=== PATIENT | male | born 1965 | race Caucasian/White ===

== ENCOUNTER 2024-03-05 11:25 | Inpatient (IN) | payer MEDICAID, SELFPAY ==
[2024-03-05] VITALS (9 sets, daily range): BP systolic 140–169; BP diastolic 77–86; PULSE 82–93; RESP 16–22; TEMP 36.6–37.2; O2SAT 70–97; BMI 51.6
--- NOTE | ~2024-03-05 | XR_ITS ---
CLINICAL HISTORY: dyspnea and hypoxia 1 view chest x-ray Comparison: CT/NC/SR - CT ANGIO CHEST PE PROTOCOL - 03/05/24 13:51 EST Findings: Left lower lobe airspace disease. Small left effusion. Right effusion not well seen. Heart size is stable. No acute fracture. IMPRESSION: 1. Left lower lobe airspace disease, atelectasis versus infection. This document has been electronically signed by: Sasha Dickerson MD on 03/06/2024 06:23:03
--- NOTE | ~2024-03-05 | CT_ITS ---
EXAMINATION: CT ANGIOGRAM CHEST CLINICAL INFORMATION: Hypoxia. COMPARISON: None available. TECHNIQUE: Multiple axial images were obtained through the chest after the administration of 85 mL of Omnipaque 350 intravenous contrast. Extensive vascular post-processing including two-dimensional and three-dimensional reformatted images were created and reviewed on an independent workstation. This CT examination was performed using dose optimization techniques as appropriate, variously including the following: *Automated exposure control *Adjustment of mA and/or kV according to patient size (this includes techniques or standardized protocols for targeted exams where dose is matched to indication/reason for exam; i.e. extremities or head) *Use of iterative reconstruction technique. DLP: 438.48 mGy centimeter FINDINGS: No intraluminal filling defects within the main pulmonary artery or its main branches. Thoracic aorta demonstrates normal patency without focal stenosis or intimal flap. Bilateral pleural effusions, large volume. Pulmonary patchy and confluent groundglass extending from the perihilar regions to the periphery of the lungs. No gross consolidation. No pneumothorax. No bronchiectasis. Honeycombing. No pericardial effusion. No lymphadenopathy, mediastinum or perihilar. Prominent lymph nodes in the axillary region. Edema pattern in the fat planes of the thorax. Multilevel spondylosis. Superior endplate compression deformity at T1 no fully included in the exam. CT/CT angio chest PE protocol IMPRESSION: No acute pulmonary artery emboli. No aneurysm or dissection, aorta. Pulmonary edema and bilateral pleural effusions, large volume Fleischner guidelines were followed. Electronically signed by: Melecio Garcia MD 03/05/2024 02:39 PM JOSEPHINE
--- NOTE | ~2024-03-05 | CT_ITS ---
EXAMINATION: CT ABDOMEN AND PELVIS WITH CONTRAST CLINICAL INFORMATION: Hypoxia. Scrotal edema. COMPARISON: None available. TECHNIQUE: Multidetector volumetric images were obtained from the superior aspect of the liver through the pubic symphysis following administration 85 mL of Omnipaque 350 intravenous contrast. Sagittal and coronal reformatted images were obtained on the technologist's workstation. Oral contrast: No This CT examination was performed using dose optimization techniques as appropriate, variously including the following: *Automated exposure control *Adjustment of mA and/or kV according to patient size (this includes techniques or standardized protocols for targeted exams where dose is matched to indication/reason for exam; i.e. extremities or head) *Use of iterative reconstruction technique. DLP: 1768.17 mGy centimeter. FINDINGS: There is no adequate enhancement of the intra-abdominal solid organs LUNG BASES: Bilateral pleural effusions, large volume. Patchy and confluent pulmonary groundglass both lungs extending from the perihilar region. LIVER, GALLBLADDER, AND BILIARY TREE: Liver measures 19 cm. No gross masses. Main portal vein and intrahepatic portion of the IVC are grossly patent... Edematous gallbladder wall without pericholecystic fluid collections. No intrahepatic or extrahepatic biliary ductal dilatation. PANCREAS: No peripancreatic fluid collections. No main pancreatic ductal dilatation. SPLEEN: 14 cm. No gross focal lesion. ADRENAL GLANDS: No nodular lesions. KIDNEYS AND URETERS: No hydronephrosis. There are multifocal hypodensities throughout the right kidney parenchyma, the largest in the lower pole. BLADDER: Fluid-filled nearly collapsed. GASTROINTESTINAL TRACT: No intestinal obstruction pattern. No pneumatosis intestinalis. Scattered diverticula in the left hemicolon I cannot identify the appendix. There is edema in the mesenteric. Trace amount of ascites. No peripheral enhancing fluid collection no pneumothorax. ABDOMINAL WALL: There is extensive edema pattern within the fat planes of the lower thorax abdomen pelvis and kidneys without gross fluid collection. There is diffuse edema/fluid within the scrotal sac. No subcutaneous emphysema. Small fat-containing umbilical hernia. LYMPH NODES: No gross lymphadenopathy. VASCULAR: No aneurysm or dissection in the abdominal aorta. There is a common trunk for the hepatic and splenic arteries. PELVIC VISCERA: There is no enlargement of the prostate gland. OSSEOUS STRUCTURES: Multilevel thoracolumbar spondylosis more conspicuous at L4-5 and L5-S1. CT/CT abdomen pelvis w IV con IMPRESSION: Edema without drainable fluid collection or subcutaneous emphysema in the scrotal sacs and likely bilateral hydroceles. Anasarca, bilateral pleural effusions, large volume. Fleischner guidelines were followed. Electronically signed by: Melecio Garcia MD 03/05/2024 02:49 PM EST
--- NOTE | ~2024-03-05 | XR_ITS ---
EXAMINATION: XR CHEST CLINICAL INFORMATION: sob COMPARISON: None available. TECHNIQUE: Frontal view of the chest was obtained. FINDINGS: The cardiac, hilar, and mediastinal contours appear normal. The lungs demonstrate patchy left base opacity suspicious for pneumonia. Cannot exclude a tiny left effusion. Right lung is clear. No pneumothorax. No acute soft tissue or bone abnormalities. XR/XR chest 1V IMPRESSION: Left lower lobe pneumonia suspected. Equivocal findings for a tiny left effusion. Electronically signed by: Jovany Andrew MD 03/05/2024 12:06 PM JOSEPHINE
--- NOTE | 2024-03-05 11:31 | ED_ITS ---
HPI - SOB/Dyspnea General Chief Complaint: Dyspnea Stated Complaint: SOB - asthma Time Seen by Provider: 03/05/24 11:42 Source: patient, family (mother) and RN notes reviewed Mode of arrival: ambulatory Limitations: other (Patient is a very poor historian) History of Present Illness ED Provider: Lillie ISRAEL Narrative: 59-year-old male who denies any known past medical history presents for evaluation of shortness of breath. The patient initially reported that he was short of breath for 2 weeks. Upon further questioning he reports that he has been short of breath since September, 5 months ago He denies any fevers, chills, cough He reports that he smoked for about a year when he was in his 20s His mother whom he lives with does smoke in the house The patient's mother states the patient has diabetes but the patient does not believe this He reports he takes no medications He states that his testicles are swollen and have been for several weeks He has pain to his testicles with movement He was found to have an oxygen saturation of 70% on room air in triage and was brought straight back to room 22 Related Data Allergies Allergy/AdvReac Type Severity Reaction Status Date / Time No Known Allergies Allergy Verified 03/05/24 11:42 Review of Systems 2 Constitutional: Constitutional: Denies body ache(s), Denies chills and Denies fever(s) ENT: Denies sore throat Cardiovascular: Cardiovascular: Denies chest pain and Reports dyspnea Respiratory: Respiratory: Denies cough and Reports dyspnea Gastrointestinal: Gastrointestinal: Denies abdominal pain, Denies nausea and Denies vomiting Genitourinary: Genitourinary: Reports genital pain, Reports scrotal swelling and Reports testicular pain Musculoskeletal: Musculoskeletal: Denies back pain PMFSH Social History Social History Unable to assess alcohol history related to: Unknown Smoked in Last 30 Days: No Use of substances other than those prescribed or required for medical reasons: Unknown Advance Directives: No Advance Directives Information Provided: Yes Physical Exam 2 Vital Signs: Vital Signs: Last Vital Signs Temp 98.9 F 03/05/24 11:53 Pulse 82 03/05/24 12:08 Resp 16 03/05/24 12:08 BP 169/82 H 03/05/24 11:53 Pulse Ox 97 03/05/24 11:53 O2 Del Method Nasal Cannula 03/05/24 11:53 O2 Flow Rate 3 03/05/24 11:53 BMI result Body Mass Index 51.6 Const: Other: Disheveled appearing General: comfortable, no acute distress, alert and awake Nutritional Appearance: well nourished, obese and overweight Orientation/consciousness: p atient oriented x3 HEENT: Head: Yes normocephalic and Yes atraumatic Eyes: Eyelids: Yes eyelids normal Conjunctivae: conjunctivae normal S clerae: sclerae normal Corneas: corneas normal Pupils: Equal, round and reactive pupils present EOM: EOMs intact bilaterally Neck: Neck: Yes full ROM Resp: Effort & Inspection: normal respiratory effort, able to speak in complete sentences and not labored Cardio: Rate: regular rate Rhythm: regular rhythm : Other: The patient has marked scrotal edema with surrounding erythema consistent with fungal infection Scrotum: edematous diffuse and erythematous Skin: Other: Patient has erythema with whitish discharge in the skin folds of his lower abdomen/pelvis as well as inner thighs General skin exam: elasticity normal Neuro: General: patient oriented x3 Cranial nerves: Yes Equal, round and reactive pupils present and Yes Bilaterally intact EOM present Cognition (Neuro): normal cognition Extrem: Other: Patient has an eschar to the left great toe that is about 3 cm in size. He has a smaller 1 cm eschar to the right 2nd toe. The patient has a chronic lichenification to the bilateral lower extremities. No open wounds or erythema to lower extremities bilaterally. Course Course Course Narrative: This is an RME: Additional HPI, ROS, PE not included below will be deferred to primary provider. RME assessment and note performed by: Berna Appiah PA-C This is a 7-feom-hwp-male, hx of who presents to the ER with complaints of shortness of breath and scrotal swelling x 2 weeks. He has a hx of diabetes but does not take medication for it. No fevers, CP. O2 70% on RA, speaking in full sentences. Lungs diminished. Patient immediately brought back to a room. Placed on 2 L nasal cannula. Plan: labs, xray, ekg Reevaluation(s) Reevaluation #1: Patient's CT scan shows anasarca with bilateral pleural effusions. The patient's troponin and BNP were both elevated likely due to the congestive heart failure. I ordered Lasix. I have a low suspicion for ACS. The patient's EKG it was not show any evidence of acute ischemia. Time: 15:02 Medications Administered Discontinued Medications Generic Name Dose Route Start Last Admin Trade Name Balwinder PRN Reason Stop Dose Admin Albuterol/Ipratropium 3 ml 03/05/24 12:01 03/05/24 12:06 Albuterol/Iprat 2.5/0.5mg 3 Ml Ampul.Neb INHALE 03/05/24 12:02 3 ml ONCE ONE Administration Iohexol 100 ml 03/05/24 14:27 03/05/24 14:27 Iohexol 350 Mg/Ml 100 Ml Infus..Btl IV 03/05/24 14:28 85 ml ONCE ONE Administration Medical Decision Making Medical Decision Making [facility] Narrative: 59-year-old male who denies any known past medical history however seems is noncompliant with medical care/follow-up presents for evaluation of multiple complaints including shortness of breath and scrotal swelling. Both these issues seemed to have been going on for at least a few weeks. Plan for labs, chest x-ray, scrotal ultrasound. We will consider CT angiography given his significant hypoxia all the patient appears quite comfortable on 3 L via nasal cannula. Differential Diagnosis Differential Diagnoses: The differential diagnosis associated with the presentation includes Pneumonia CHF Hydrocele Anasarca Testicular torsion less likely Safia PE Admission/Observation Consideration of admission/observation: Escalation of care including admission/observation considered Lab Data 03/05/24 13:03 03/05/24 13:03 Labs: Lab Results 03/05/24 03/05/24 Range/Units 13:03 13:25 WBC 7.1 (4.8-10.8) X10*3/uL RBC 4.24 L (4.60-5.80) X10*6/uL Hgb 11.3 L (14.0-18.0) g/dl Hct 39.1 L (42.0-52.0) % MCV 92.2 (80.0-98.0) fL MCH 26.7 L (27.0-33.0) pg MCHC 28.9 L (31.0-36.0) g/dl RDW 14.6 (11.0-16.0) % Plt Count 250 (160-400) X10*3/uL MPV 8.3 L (9.4-12.4) fL Immature Gran % (Auto) 1.6 H (0.0-0.4) % Neut % (Auto) 86.3 H (45-73) % Lymph % (Auto) 4.9 L (20-40) % [place] % (Auto) 6.2 (2-11) % Eos % (Auto) 0.4 (0-4) % Baso % (Auto) 0.6 (0-2) % Lymph # (Auto) 0.4 L (1.2-4.9) X10*3/uL [place] # (Auto) 0.4 (0.1-1.2) X10*3/uL Eos # (Auto) 0.0 (0.0-0.4) X10*3/uL Baso # (Auto) 0.0 (0.0-0.2) X10*3/uL Abs Immat Gran (auto) 0.11 H (0.00-0.03) X10*3/uL Absolute Neuts (auto) 6.1 (2.0-8.3) x10*3/uL Absolute Nucleated RBC 0.030 H (0.0-0.012) X10*3/uL Nucleated RBC % (auto) 0.4 H (0.0-0.2) /100WBC Sodium 144 (135-145) mmol/L Potassium 4.3 (3.3-5.1) mmol/L Chloride 102 (96-108) mmol/L Carbon Dioxide 33 H (22-29) mmol/L Anion Gap 13 (12-20) BUN 29 H (9-16) mg/dL Creatinine 1.28 (0.5-1.4) mg/dL Estim Creat Clear Calc 98.2 Estimated GFR 58 Random Glucose 275 H (60-115) mg/dL Lactic Acid 2.1 H* (0.5-2.0) mmol/L Calcium 8.3 L (8.4-10.2) mg/dL Magnesium 2.5 (1.6-2.6) mg/dL Total Bilirubin 0.8 (0.0-1.0) mg/dL Direct Bilirubin 0.4 (0.0-0.5) mg/dL AST 28 (5-37) U/L ALT 16 (0-40) U/L Alkaline Phosphatase 228 H (39-117) U/L Troponin I High Sens 72.7 H (<3.5-35.0) ng/L B-Natriuretic Peptide 530 H (<100) pg/mL Total Protein 8.5 H (6.5-8.0) g/dL Albumin 2.9 L (3.5-5.0) g/dL Influenza Type A (PCR) NEGATIVE (Negative) Influenza Type B (PCR) NEGATIVE (Negative) RSV RNA Qual (PCR) NEGATIVE (Negative) SARS-CoV-2 RNA (RT-PCR) NEGATIVE (Negative) Discharge Plan Discharge Clinical Impression: Congestive heart failure Patient Disposition: Admitted As Inpatient Print Language: Sinhala
--- NOTE | 2024-03-05 11:36 | ECG_ITS ---
Test Reason : SOB Blood Pressure : */* mmHG Vent. Rate : 82 BPM Atrial Rate : 82 BPM P-R Int : 182 ms QRS Dur : 110 ms QT Int : 378 ms P-R-T Axes : 4 -37 44 degrees QTcB Int : 441 ms Normal sinus rhythm Left axis deviation Anteroseptal infarct , age undetermined Abnormal ECG No previous ECGs available Referred By: Berna Appiah Electronically Signed By: Kirk Evans
[2024-03-05] MEDS: Albuterol/Iprat 2.5/0.5MG 3 ML AMPUL.NEB INHALE (12:06)
[2024-03-05 13:14] LABS: MANUAL DIFF FLAG NO
[2024-03-05 13:20] LABS: Basophils Percent Auto 0.6 % (0-2); Eosinophils Percent Auto 0.4 % (0-4); Hematocrit 39.1 % (42.0-52.0); Hemoglobin 11.3 g/dl (14.0-18.0); Imm Gran Abs Auto 0.11 X10*3/uL (0.00-0.03); Imm Gran Pct Auto 1.6 % (0.0-0.4); Lymphocytes Absolute Auto 0.4 X10*3/uL (1.2-4.9); Lymphocytes Percent Auto 4.9 % (20-40); Mean Corpuscular HGB Conc 28.9 g/dl (31.0-36.0); Mean Corpuscular Hemoglobin 26.7 pg (27.0-33.0); Mean Corpuscular Volume 92.2 fL (80.0-98.0); Mean Platelet Volume 8.3 fL (9.4-12.4); Monocytes Absolute Auto 0.4 X10*3/uL (0.1-1.2); Monocytes Percent Auto 6.2 % (2-11); NRBC Pct Auto 0.4 /100WBC (0.0-0.2); Neutrophils Absolute Auto 6.1 x10*3/uL (2.0-8.3); Neutrophils Percent Auto 86.3 % (45-73); Platelet Count 250 X10*3/uL (160-400); Red Blood Count 4.24 X10*6/uL (4.60-5.80); Red Cell Distribution Width 14.6 % (11.0-16.0); White Blood Count 7.1 X10*3/uL (4.8-10.8)
[2024-03-05 13:31] LABS: Alanine Aminotransferase 16 U/L (0-40); Albumin Level 2.9 g/dL (3.5-5.0); Alkaline Phosphatase 228 U/L (39-117); Anion Gap 13 (12-20); Aspartate Amino Transferase 28 U/L (5-37); Bilirubin Direct 0.4 mg/dL (0.0-0.5); Bilirubin Total 0.8 mg/dL (0.0-1.0); Blood Urea Nitrogen 29 mg/dL (9-16); Calcium 8.3 mg/dL (8.4-10.2); Carbon Dioxide 33 mmol/L (22-29); Chloride 102 mmol/L (96-108); Creatinine Clr Calc Pharmacy 98.2; Estimated Glomerular Filt Rate 58; Glucose Random 275 mg/dL (60-115); Magnesium 2.5 mg/dL (1.6-2.6); Potassium 4.3 mmol/L (3.3-5.1); Sodium 144 mmol/L (135-145); Total Protein 8.5 g/dL (6.5-8.0)
[2024-03-05 13:35] LABS: B Type Natriuretic Peptide 530 pg/mL (<100)
[2024-03-05 13:37] LABS: Troponin-I High Sensitivity 72.7 ng/L (<3.5-35.0)
[2024-03-05 13:38] LABS: Lactic Acid 2.1 mmol/L (0.5-2.0)
[2024-03-05 14:12] LABS: Influenza A PCR NEGATIVE (Negative); Influenza B PCR NEGATIVE (Negative); Resp Syncy Virus RNA Qual PCR NEGATIVE (Negative); SARS COV2 PCR INHOUSE NEGATIVE (Negative)
[2024-03-05] MEDS: iohexoL 350 MG/ML 100 ML INFUS..BTL IV (14:27)
[2024-03-05 15:11] LABS: Reflex Lactate? Lactic Acid Added
[2024-03-05 15:23] LABS: Estimated Average Glucose 298 mg/dL; Hemoglobin A1C 322.0366 umol/L; Total Hemoglobin (HGBA1C) 2994.5558 umol/L
--- NOTE | 2024-03-05 15:29 | P.HPHOSP_ITS ---
History of Present Illness Date of Service: 03/05/24 Chief Complaint: sob, scrotal swelling 59M PMH DM, morbid obesity, non compliance, does not take meds or follow with doctors, is a poor historian. Reports that he came to the ED and behest of his mother for scrotal swelling and worsening shortness of breath for 2 weeks. Denies chest pain, fever, chills. Denies orthopnea. Is inconsistent when asked about chronicity of his scrotal swelling, at times saying that it has been there for 25 years and at times saying that developed last few weeks. Reports weight gain, denies loss of appetite. In ED CT chest and abdomen consistent with anasarca, elevated BNP, hypoxia Review of Systems 2 Review of Systems: Yes all other systems are reviewed and are negative PMFSH Social History Unable to assess alcohol history related to: Unknown Smoked in Last 30 Days: No Use of substances other than those prescribed or required for medical reasons: Unknown Advance Directives: No Advance Directives Information Provided: Yes Meds Allergies Allergy/AdvReac Type Severity Reaction Status Date / Time No Known Allergies Allergy Verified 03/05/24 11:42 Active Medications: Current Medications Acetaminophen (Acetaminophen 325 Mg Tablet) 650 mg PO Q6H PRN PRN Reason: Pain, Mild 1-3,fever,headache Calcium Carbonate (Calcium Carbonate 750 Mg Tab.Chew) 750 mg PO Q4H PRN PRN Reason: Heartburn Enoxaparin Sodium (Enoxaparin Sodium 40 Mg/0.4 Ml Syringe) 40 mg SUBCUT Q24H SUSAN Furosemide (Furosemide 40 Mg/4 Ml Vial) 40 mg IVPUSH BID@0900,1800 SUSAN; Protocol Glucose (Glucose Gel 15 Gm Gel..Gram.) 15 gm PO Q15M PRN; Protocol PRN Reason: per Hypoglycemia Standing Ord. Dextrose (D10) 250 mls @ 750 mls/hr IV Q15M PRN; Protocol PRN Reason: per Hypoglycemia Standing Ord. Insulin Glargine (Insulin Glargine,Hum.Rec.Anlog 100 Unit/Ml 10 Ml Vial) 15 unit SUBCUT BEDTIME SUSAN Insulin Human Lispro (Insulin Lispro 100 Unit/Ml 3 Ml Vial) 0 unit SUBCUT QIDACHS SUSAN; Protocol Magnesium Hydroxide (Milk Of Magnesia 30 Ml Oral.Susp) 30 ml PO DAILY PRN PRN Reason: Constipation Melatonin (Melatonin 3 Mg Tablet) 6 mg PO BEDTIME PRN PRN Reason: Insomnia Sodium Chloride (0.9 % Sodium Chloride Flush 3 Ml Syringe) 3 ml IVFLUSH QSHIFT SUSAN Physical Exam 2 Vital Signs and Narrative: Vital Signs: Last Vital Signs Temp 98.9 F 03/05/24 11:53 Pulse 82 03/05/24 12:08 Resp 16 03/05/24 12:08 BP 169/82 H 03/05/24 11:53 Pulse Ox 97 03/05/24 11:53 O2 Del Method Nasal Cannula 03/05/24 11:53 O2 Flow Rate 3 03/05/24 11:53 BMI result Body Mass Index 51.6 General: AO X 3, no acute distress Resp: Diminished bilateral, no accessory muscles used CVS: S1,S2,RRR, bilateral 3+ edema with chronic skin changes, large hydrocele GI: soft, non tender, non distended Neuro: motor grossly intact, alert Psych: Flat affect Results Labs 03/05/24 13:03 03/05/24 13:03 Labs: Laboratory Results - last 24 hr 03/05/24 03/05/24 13:03 13:25 MCV 92.2 MCH 26.7 L MCHC 28.9 L RDW 14.6 Plt Count 250 MPV 8.3 L Immature Gran % (Auto) 1.6 H Neut % (Auto) 86.3 H Lymph % (Auto) 4.9 L [place] % (Auto) 6.2 Eos % (Auto) 0.4 Baso % (Auto) 0.6 Lymph # (Auto) 0.4 L [place] # (Auto) 0.4 Eos # (Auto) 0.0 Baso # (Auto) 0.0 Abs Immat Gran (auto) 0.11 H Absolute Neuts (auto) 6.1 Absolute Nucleated RBC 0.030 H Nucleated RBC % (auto) 0.4 H Anion Gap 13 Estim Creat Clear Calc 98.2 Estimated GFR 58 Random Glucose 275 H Estimat Average Glucose 298 Hemoglobin A1c % 12.0 H Lactic Acid 2.1 H* Calcium 8.3 L Magnesium 2.5 Total Bilirubin 0.8 Direct Bilirubin 0.4 AST 28 ALT 16 Alkaline Phosphatase 228 H Troponin I High Sens 72.7 H B-Natriuretic Peptide 530 H Total Protein 8.5 H Albumin 2.9 L Influenza Type A (PCR) NEGATIVE Influenza Type B (PCR) NEGATIVE RSV RNA Qual (PCR) NEGATIVE SARS-CoV-2 RNA (RT-PCR) NEGATIVE Imaging Radiologist's Impressions: Impressions Chest X-Ray 03/05/24 11:36 IMPRESSION: Left lower lobe pneumonia suspected. Equivocal findings for a tiny left effusion. Electronically signed by: Jovany Andrew MD 03/05/2024 12:06 PM EST RP Chest CTA 03/05/24 13:42 IMPRESSION: No acute pulmonary artery emboli. No aneurysm or dissection, aorta. Pulmonary edema and bilateral pleural effusions, large volume Fleischner guidelines were followed. Electronically signed by: Melecio Garcia MD 03/05/2024 02:39 PM EST RP Abdomen/Pelvis CT 03/05/24 13:51 IMPRESSION: Edema without drainable fluid collection or subcutaneous emphysema in the scrotal sacs and likely bilateral hydroceles. Anasarca, bilateral pleural effusions, large volume. Fleischner guidelines were followed. Electronically signed by: Melecio Garcia MD 03/05/2024 02:49 PM EST RP Assessment and Plan (1) Congestive heart failure: Status: Acute Plan 59M PMH DM, morbid obesity, non compliance, does not take meds or follow with doctors presented with shortness of breath and scrotal swelling Acute hypoxic respiratory failure secondary to acute unspecified CHF IV Lasix, cardio eval, echo Diabetes with hyperglycemia Basal bolus insulin Rule out other causes of anasarca Check urine protein Morbid obesity Weight loss recommended Suspected mood disorder without suicidality Outpatient psychiatric follow up DVT prophylaxis with Lovenox Full Code Patient with significant fluid overloaded requiring IV diuresis for likely more than 2 midnights Quality Stroke Does the patient have a stroke diagnosis?: No VTE Prior VTE?: No VTE Risk Level:: Medical - moderate - high VTE Device Contraindication: N/A - Device Ordered VTE Drug Contraindication: Treatment Not Indicated
[2024-03-05 15:32] LABS: Cholesterol 158 mg/dL (<200); HDL Cholesterol 51 mg/dL (>40); LDL Cholesterol Calculated 86 mg/dL (<100); Triglycerides 105 mg/dL (<150)
[2024-03-05] MEDS: Furosemide 40 MG/4 ML VIAL IVPUSH (15:38)
[2024-03-05] MEDS: Nystatin Powder 15 GM BOTTLE 1 APPL TOPICAL (15:38)
--- NOTE | 2024-03-05 15:50 | PC.NURSE ---
Patient awake and alert. skin pwd, resp even and labored at 22, speaking in full, clear sentences. denies pain. NSR erick tele. medicated as ordered w/ lasix. nystatin powder to abdominal folds per order for rash. patient awaiting admission.
--- NOTE | 2024-03-05 15:54 | PHA.MEDREC ---
Addendum entered by Duncan Mishra [facility] 03/05/24 16:48: MED REC CHECKED BY [facility] Original Note: Pharmacy Consult ? Medication Reconciliation Pharmacy has completed the medication reconciliation. Spoke with patient and he confirmed he is not taking any home medications and no OTC medications.
[2024-03-05 16:00] LABS: ~Lactic Acid-LAB USE ONLY 2.2 mmol/L (0.5-2.0)
[2024-03-05 16:05] LABS: Troponin-I High Sensitivity 76.8 ng/L (<3.5-35.0)
[2024-03-05 16:34] LABS: Cancel Lactic Acid Canceled
--- NOTE | 2024-03-05 18:37 | MHC.EDTECH ---
Attempted to do vitals, Patient Cardiac monitored was removed/BP cuff, NC also. Vitals o2 60 pt placed back on vitals repeat 97NC 3L LANDON Munson Notified.
[2024-03-05 18:47] LABS: Glucose, Whole Blood 244 mg/dL (60-115)
--- NOTE | 2024-03-05 19:12 | PC.NURSE ---
patient resting on stretcher w/ eyes closed. skin pink, warm, moist, resp even and non labored. patient initially not answering this RN, not opening eyes to verbal stimuli. patient opening eyes to light touch. patient states he does not know where he is and that he doesnt know his name, refusing to eat dinner, pulling off oxygen and tele monitor. hospitalist made aware
[2024-03-05] MEDS: Insulin Glargine,Hum.rec.anlog 100 UNIT/ML 10 ML VIAL 15 UNIT SUBCUT (21:11)
[2024-03-05] MEDS: LORazepam 2 MG/ML VIAL 1 MG IVPUSH (21:11)
[2024-03-05] MEDS: 0.9 % Sodium Chloride Flush 3 ML SYRINGE IVFLUSH (21:11)
--- NOTE | 2024-03-05 21:29 | PC.NURSE ---
patient medicated w/ ativan per order r/t patient restless and pulling off oxygen and tele leads. patient transferred onto hospital bed for comfort. NSR via tele, resp even and non labored, appears more comfortable at this time
[2024-03-05 21:32] LABS: Glucose, Whole Blood 215 mg/dL (60-115)
--- NOTE | 2024-03-05 21:50 | PC.NURSE ---
per Dr. Christy there is no need to repeat trop and lactic.
--- NOTE | 2024-03-05 22:42 | PC.NURSE ---
Patient sleeping, skin pink, warm, moist, resp even and non labored, O2 decreased to upper 80's while sleeping, patient repositioned, O2 increased to 93%.
--- NOTE | 2024-03-05 23:30 | PC.NURSE ---
This insurance writer assumed care of this Pt at 2300. Pt appears to be sleeping, equal, non labored respirations. Pt on 4L O2 via NC. Plan of care on going.
[2024-03-06] VITALS (18 sets, daily range): BP systolic 113–142; BP diastolic 60–81; PULSE 64–108; RESP 18–24; TEMP 36.4–37.2; O2SAT 79–100
[2024-03-06] MEDS: 0.9 % Sodium Chloride Flush 3 ML SYRINGE IVFLUSH ×4 (01:36→22:26)
--- NOTE | 2024-03-06 02:37 | MHC.EDTECH ---
Addendum entered by Laura Campos 03/06/24 07:10: Redness noted to [place] skin folds, nystatin powder applied by previous RN. Swelling noted to Scutum. Redness noted to buttocks, barrier cream applied, Pt reposition. Addendum entered by Laura Campos 03/06/24 07:07: U-bag placed for urine collection. Original Note: Bladder scan was attempted multiple times with reading showing less than 14ml. RN at bedside and aware
[2024-03-06] MEDS: Albuterol/Iprat 2.5/0.5MG 3 ML AMPUL.NEB INHALE (03:59)
--- NOTE | 2024-03-06 04:10 | PC.NURSE ---
Pt O2 destat to 87% on 4L via NC, Lung sounds diminished. Pt was switched over to oxymask with no improvement. RT called, breathing tx improvement of O2 to 90%.
--- NOTE | 2024-03-06 05:30 | PM.EVENT ---
Event Note Date of Service: 03/06/24 Event Note: Nurse reported tachypnea and increasing oxygen requirements. Ordered additional 40 mg IV Lasix. Patient unable to maintain normal oxygen saturation on nasal cannula or OxyMask. Switched to CPAP which improved oxygenation. Repeat chest x-ray and VBG pending. Closely monitor urine output Time Spent With Patient Time: Total time managing care of this patient today ____ minutes.
[2024-03-06] MEDS: Furosemide 40 MG/4 ML VIAL IVPUSH ×3 (05:31→19:33)
--- NOTE | 2024-03-06 05:50 | PC.NURSE ---
RT at bedside placing Pt on BIPAP.
[2024-03-06 05:57] LABS: Venous Blood Gas Refer to POC result
[2024-03-06 06:10] LABS: Hemoglobin 10.6 g/dl (14.0-18.0); Mean Corpuscular HGB Conc 27.9 g/dl (31.0-36.0); Mean Corpuscular Hemoglobin 26.5 pg (27.0-33.0); Mean Platelet Volume 8.8 fL (9.4-12.4); NRBC Pct Auto 0.6 /100WBC (0.0-0.2); Platelet Count 226 X10*3/uL (160-400); Red Cell Distribution Width 14.9 % (11.0-16.0); White Blood Count 6.9 X10*3/uL (4.8-10.8)
[2024-03-06 06:13] LABS: VBG Base Excess 6.4 mmol/L; VBG HCO3 37 mmol/L (22-26); VBG pCO2 91 mmHg; VBG pH 7.21 (7.32-7.43); VBG pO2 39 mmHg
[2024-03-06 06:28] LABS: Anion Gap 12 (12-20); Blood Urea Nitrogen 35 mg/dL (9-16); Calcium 8.3 mg/dL (8.4-10.2); Carbon Dioxide 33 mmol/L (22-29); Chloride 104 mmol/L (96-108); Creatinine Clr Calc Pharmacy 83.3; Estimated Glomerular Filt Rate 48; Glucose Random 234 mg/dL (60-115); Magnesium 2.6 mg/dL (1.6-2.6); Potassium 4.8 mmol/L (3.3-5.1); Sodium 144 mmol/L (135-145)
--- NOTE | 2024-03-06 07:00 | CA_ITS ---
Transthoracic Echocardiogram Patient (Last, First, Middle): Ministerio Esparza J Gender: Male Date of : 1965 Age: 59 Procedure Date: 03/06/2024 Procedure Type: Transthoracic Echocardiogram Location: [facility] Height: 177.8 cm Weight: 163.3 kg BSA: 2.68 m2 Heart Rate: 70 bpm BP: 128 / 67 mmHg Perl Programmer: Referring MD: Marcial Matt MD Symptoms: chf Study Quality: Adequate w contrast ECG Rhythm: Sinus Conclusions: - Normal left ventricular cavity size. There is mildly increased left ventricular wall thickness. The left ventricular systolic function is low normal. The visually estimated ejection fraction is between 50-55%. - E/E prime ratio is between 8 and 15 consistent with indeterminate filling pressures. - Mildly increased right ventricular cavity size. There is low normal right ventricular systolic function. Findings Procedure Information Contrast agent, definity, is being given per protocol without apparent complications. Left Ventricle Normal left ventricular cavity size. There is mildly increased left ventricular wall thickness. The left ventricular systolic function is low normal. The visually estimated ejection fraction is between 50-55%. There is no evidence of regional wall motion abnormalities. Abnormal diastolic function is noted. Spectral Doppler is indicative of an impaired relaxation filling pattern. E/E prime ratio is between 8 and 15 consistent with indeterminate filling pressures. Right Ventricle Mildly increased right ventricular cavity size. There is low normal right ventricular systolic function. Atria The left atrium is likely dilated. Aortic Valve There is a normal trileaflet aortic valve. There is mild calcification of the aortic valve. There is no aortic valve stenosis. There is no aortic valve regurgitation. Mitral Valve The mitral valve appears normal. There is no mitral valve regurgitation. There is no mitral valve stenosis. Pulmonic Valve The pulmonic valve is likely normal. Tricuspid Valve Normal tricuspid valve structure. There is trace tricuspid valve regurgitation. Significantly elevated right atrial pressure. There is no evidence of pulmonary hypertension. Great Vessels All visible segments of the aorta are normal in size. The visualized portions of the pulmonary artery and branches are normal. Venous The inferior vena cava is dilated and collapses less than 50% with inspiration. Pericardium/Pleural There is no evidence of pericardial effusion. Prior Study Comparison No prior study available for comparison. Measurements 2D Linear Measurements IVSd: 1.24 0.6-0.9/0.6-1.0 cm LVIDd: 4.95 3.9-5.3/4.2-5.9 cm LVIDd Index: 1.85 2.4-3.2/2.2-3.1 cm/m2 LVIDs: 3.29 2.0-3.6 cm LVPWd: 1.22 0.7-1.1 cm LA Diam: 4.70 2.7-3.8/3.0-4.0 cm LAIDs Index: 1.75 1.5-2.3 cm/m2 LV Mass: 297.00 67-162/88-224 g LV Mass Index: 110.82 43-95/49-115 g/m2 LVOT Diam: 2.30 3.0+(-)1.3 cm 2D Systolic Function EF 4C: 59.30 >55% EF 2C: 63.30 >55% EF BiP: 60.90 >55% Mitral Valve MV Pk E: 1.02 MV PK A: 0.69 MV Decel Time: 155.00 E/A: 1.50 E'Lateral: 12.10 E'Medial: 5.98 E/E' Med: 17.10 E/E' Lat: 8.40 PHT: 45.00 MVA PHT: 4.89 Decel [place]: 6.57 Aortic Valve AoV Pk Vladislav: 1.53 AoV Mn Vladislav: 1.05 AoV VTI: 0.32 AoV Pk Grad: 9.00 Aov Mn Grad: 5.00 SARAH Cont.VTI: 2.81 LVOT LVOT Pk Vladislav: 0.95 LVOT Mn Vladislav: 0.66 LVOT VTI: 0.22 LVOT Pk Grad: 4.00 LVOT Mn Grad: 2.00 LVOT Diam: 2.30 LVOT Area: 4.15 Diastolic Function MV Pk E: 1.02 MV Pk A: 0.69 E/A: 1.50 E'Medial: 5.98 E/E' Med: 17.10 E' Laterial: 12.10 E/E' Lat: 8.40 Right Ventricle TAPSE (mm): 22.30 TVS' Vladislav: 13.30 Tricuspid Valve TR Pk Vladislav: 2.18 TR Pk Grad: 19.00 RA Press: 15.00 RVSP: 34.00 Great Vessels Aorta Sinus of Valsalva: 3.20 2.0-3.5 cm Ao Asc: 3.10 2.1-3.4 cm Pulmonary Valve PV Pk Vladislav: 0.92 Peak PV Grad: 3.00 Updated in Other Vendor System with Status of Final Kirk Evans MD electronically signed on 03/07/2024 10:30:41 AM with status of Final
[2024-03-06 07:29] LABS: Glucose, Whole Blood 205 mg/dL (60-115)
[2024-03-06] MEDS: Enoxaparin Sodium 40 MG/0.4 ML SYRINGE SUBCUT (09:01)
[2024-03-06] MEDS: Insulin Lispro 100 UNIT/ML 3 ML VIAL SUBCUT ×2 (09:01→22:29)
--- NOTE | 2024-03-06 09:05 | PC.NURSE ---
patient awake/alert- bedside echo being performed, pt currently on bipap /, 50%- pt currently 98% O2 sat, lungs diminished throughout, canvass manager intact sinus aranza, vitals currently stable, pt medicated per order, call [facility]ado within reach, pt needs UA- will notify tech, plan of care ongoing.
[2024-03-06 10:20] LABS: VBG HCO3 40 mmol/L (22-26); VBG pCO2 78 mmHg; VBG pH 7.32 (7.32-7.43); VBG pO2 104 mmHg
[2024-03-06 10:22] LABS: Venous Blood Gas Refer to POC result
--- NOTE | 2024-03-06 10:26 | PC.NURSE ---
cardenas cath- this nurse attempted cardenas cath placement, pts scrotal/penile swelling is too much to appropriately place. Dr. Matt was notified that urology needs to place the cardenas and it was also decided by the provider to hold the bumetanide without cardenas intact.
--- NOTE | 2024-03-06 10:28 | HO.PM.IMPN ---
Subjective Subjective Date of Service: 03/06/24 Interval History: hypoxic and hypercapneic overnight, needed bipap Physical Exam Vital Signs: Vital Signs: Last Vital Signs Temp 97.6 F 03/06/24 08:32 Pulse 72 03/06/24 08:32 Resp 20 03/06/24 08:32 BP 117/66 03/06/24 09:01 Pulse Ox 97 03/06/24 08:32 O2 Del Method High Flow Nasal C annula 03/06/24 08:32 O2 Flow Rate 10 03/06/24 05:27 BMI result Body Mass Index 51.6 lethargic, ill appearing, anasarca Objective Data Active Medications Acetaminophen (Acetaminophen 325 Mg Tablet) 650 mg PO Q6H PRN PRN Reason: Pain, Mild 1-3,fever,headache Calcium Carbonate (Calcium Carbonate 750 Mg Tab.Chew) 750 mg PO Q4H PRN PRN Reason: Heartburn Enoxaparin Sodium (Enoxaparin Sodium 40 Mg/0.4 Ml Syringe) 40 mg SUBCUT Q24H [facility] Last Admin: 03/06/24 09:01 Dose: 40 mg Documented By: DMITRY Furosemide (Furosemide 40 Mg/4 Ml Vial) 40 mg IVPUSH BID@0900,1800 [facility]; Protocol Last Admin: 03/06/24 09:01 Dose: 40 mg Documented By: DMITRY Glucose (Glucose Gel 15 Gm Gel..Gram.) 15 gm PO Q15M PRN; Protocol PRN Reason: per Hypoglycemia Standing Ord. Dextrose (D10) 250 mls @ 750 mls/hr IV Q15M PRN; Protocol PRN Reason: per Hypoglycemia Standing Ord. Insulin Glargine (Insulin Glargine,Hum.Rec.Anlog 100 Unit/Ml 10 Ml Vial) 15 unit SUBCUT BEDTIME [facility] Last Admin: 03/05/24 21:11 Dose: 15 unit Documented By: YARELI Insulin Human Lispro (Insulin Lispro 100 Unit/Ml 3 Ml Vial) 0 unit SUBCUT QIDACHS [facility]; Protocol Last Admin: 03/06/24 09:01 Dose: 4 unit Documented By: DMITRY Magnesium Hydroxide (Milk Of Magnesia 30 Ml Oral.Susp) 30 ml PO DAILY PRN PRN Reason: Constipation Melatonin (Melatonin 3 Mg Tablet) 6 mg PO BEDTIME PRN PRN Reason: Insomnia Sodium Chloride (0.9 % Sodium Chloride Flush 3 Ml Syringe) 3 ml IVFLUSH QSHIFT [facility] Last Admin: 03/06/24 09:07 Dose: 3 ml Documented By: DMITRY Labs 03/06/24 05:42 03/06/24 05:42 Labs: Laboratory Results - last 24 hr 03/05/24 03/05/24 03/05/24 13:03 13:25 15:26 MCV 92.2 MCH 26.7 L MCHC 28.9 L RDW 14.6 Plt Count 250 MPV 8.3 L Immature Gran % (Auto) 1.6 H Neut % (Auto) 86.3 H Lymph % (Auto) 4.9 L [place] % (Auto) 6.2 Eos % (Auto) 0.4 Baso % (Auto) 0.6 Lymph # (Auto) 0.4 L [place] # (Auto) 0.4 Eos # (Auto) 0.0 Baso # (Auto) 0.0 Abs Immat Gran (auto) 0.11 H Absolute Neuts (auto) 6.1 Absolute Nucleated RBC 0.030 H Nucleated RBC % (auto) 0.4 H VBG pH VBG pCO2 VBG pO2 VBG HCO3 VBG O2 Saturation VBG Base Excess Anion Gap 13 Estim Creat Clear Calc 98.2 Estimated GFR 58 POC Glucose Random Glucose 275 H Estimat Average Glucose 298 Hemoglobin A1c % 12.0 H Lactic Acid 2.1 H* Lactic Acid F/U @ 2Hr 2.2 H* Calcium 8.3 L Magnesium 2.5 Total Bilirubin 0.8 Direct Bilirubin 0.4 AST 28 ALT 16 Alkaline Phosphatase 228 H Troponin I High Sens 72.7 H 76.8 H B-Natriuretic Peptide 530 H Total Protein 8.5 H Albumin 2.9 L Triglycerides 105 Cholesterol 158 LDL Cholesterol, Calc 86 HDL Cholesterol 51 Influenza Type A (PCR) NEGATIVE Influenza Type B (PCR) NEGATIVE RSV RNA Qual (PCR) NEGATIVE SARS-CoV-2 RNA (RT-PCR) NEGATIVE 03/05/24 03/05/24 03/06/24 18:44 21:17 05:42 MCV 95.0 MCH 26.5 L MCHC 27.9 L RDW 14.9 Plt Count 226 MPV 8.8 L Immature Gran % (Auto) Neut % (Auto) Lymph % (Auto) [place] % (Auto) Eos % (Auto) Baso % (Auto) Lymph # (Auto) [place] # (Auto) Eos # (Auto) Baso # (Auto) Abs Immat Gran (auto) Absolute Neuts (auto) Absolute Nucleated RBC 0.040 H Nucleated RBC % (auto) 0.6 H VBG pH VBG pCO2 VBG pO2 VBG HCO3 VBG O2 Saturation VBG Base Excess Anion Gap 12 Estim Creat Clear Calc 83.3 Estimated GFR 48 POC Glucose 244 H 215 H Random Glucose 234 H Estimat Average Glucose Hemoglobin A1c % Lactic Acid Lactic Acid F/U @ 2Hr Calcium 8.3 L Magnesium 2.6 Total Bilirubin Direct Bilirubin AST ALT Alkaline Phosphatase Troponin I High Sens B-Natriuretic Peptide Total Protein Albumin Triglycerides Cholesterol LDL Cholesterol, Calc HDL Cholesterol Influenza Type A (PCR) Influenza Type B (PCR) RSV RNA Qual (PCR) SARS-CoV-2 RNA (RT-PCR) 03/06/24 03/06/24 03/06/24 05:55 07:25 10:14 MCV MCH MCHC RDW Plt Count MPV Immature Gran % (Auto) Neut % (Auto) Lymph % (Auto) [place] % (Auto) Eos % (Auto) Baso % (Auto) Lymph # (Auto) [place] # (Auto) Eos # (Auto) Baso # (Auto) Abs Immat Gran (auto) Absolute Neuts (auto) Absolute Nucleated RBC Nucleated RBC % (auto) VBG pH 7.21 L 7.32 VBG pCO2 91 78 VBG pO2 39 104 VBG HCO3 37 H 40 H VBG O2 Saturation 57.0 99.0 VBG Base Excess 6.4 12.0 Anion Gap Estim Creat Clear Calc Estimated GFR POC Glucose 205 H Random Glucose Estimat Average Glucose Hemoglobin A1c % Lactic Acid Lactic Acid F/U @ 2Hr Calcium Magnesium Total Bilirubin Direct Bilirubin AST ALT Alkaline Phosphatase Troponin I High Sens B-Natriuretic Peptide Total Protein Albumin Triglycerides Cholesterol LDL Cholesterol, Calc HDL Cholesterol Influenza Type A (PCR) Influenza Type B (PCR) RSV RNA Qual (PCR) SARS-CoV-2 RNA (RT-PCR) Assessment and Plan (1) Congestive heart failure: Status: Acute Plan 59M PMH DM, morbid obesity, non compliance, does not take meds or follow with doctors presented with shortness of breath and scrotal swelling Acute hypoxic and hypercapneic respiratory failure secondary to acute unspecified CHF complicated by acute metabolic encephalopathy IV Lasix, cardio eval, echo bipap oliguria unable to get cardenas due to anasarca eval Diabetes with hyperglycemia Basal bolus insulin Rule out other causes of anasarca Check urine protein Morbid obesity Weight loss recommended Suspected mood/psych disorder without suicidality eventual psychiatric eval DVT prophylaxis with Lovenox Full Code reason for continued hospitalization:bipap Quality Stroke Does the patient have a stroke diagnosis?: No VTE Prior VTE?: No VTE Risk Level:: Medical - moderate - high VTE Device Contraindication: N/A - Device Ordered VTE Drug Contraindication: Treatment Not Indicated
--- NOTE | 2024-03-06 11:33 | P.CONCA_ITS ---
History of Present Illness History of Present Illness Date of Service: 03/06/24 Chief complaint: SOB Asthma Narrative: [age] year gentleman presenting with shortness of breath and change in mental status. No history is available. The patient was on BiPAP and was barely arousable. He will wake up and go back to sleep. He was getting a blood gas. It appears his imaging and workup currently has shown congestive heart failure. He is denying chest pain. Overall history is quite limited. Labs and imaging reviewed. [facility] Social History Social History Unable to assess alcohol history related to: Unknown Smoked in Last 30 Days: No Use of substances other than those prescribed or required for medical reasons: Unknown Advance Directives: No Advance Directives Information Provided: Yes Meds Allergies Allergy/AdvReac Type Severity Reaction Status Date / Time No Known Allergies Allergy Verified 03/05/24 11:42 Active Medications: Current Medications Acetaminophen (Acetaminophen 325 Mg Tablet) 650 mg PO Q6H PRN PRN Reason: Pain, Mild 1-3,fever,headache Calcium Carbonate (Calcium Carbonate 750 Mg Tab.Chew) 750 mg PO Q4H PRN PRN Reason: Heartburn Enoxaparin Sodium (Enoxaparin Sodium 40 Mg/0.4 Ml Syringe) 40 mg SUBCUT Q24H [facility] Last Admin: 03/06/24 09:01 Dose: 40 mg Furosemide (Furosemide 40 Mg/4 Ml Vial) 40 mg IVPUSH BID@0900,1800 [facility]; Protocol Last Admin: 03/06/24 09:01 Dose: 40 mg Glucose (Glucose Gel 15 Gm Gel..Gram.) 15 gm PO Q15M PRN; Protocol PRN Reason: per Hypoglycemia Standing Ord. Dextrose (D10) 250 mls @ 750 mls/hr IV Q15M PRN; Protocol PRN Reason: per Hypoglycemia Standing Ord. Insulin Glargine (Insulin Glargine,Hum.Rec.Anlog 100 Unit/Ml 10 Ml Vial) 15 unit SUBCUT BEDTIME [facility] Last Admin: 03/05/24 21:11 Dose: 15 unit Insulin Human Lispro (Insulin Lispro 100 Unit/Ml 3 Ml Vial) 0 unit SUBCUT QIDACHS [facility]; Protocol Last Admin: 03/06/24 09:01 Dose: 4 unit Magnesium Hydroxide (Milk Of Magnesia 30 Ml Oral.Susp) 30 ml PO DAILY PRN PRN Reason: Constipation Melatonin (Melatonin 3 Mg Tablet) 6 mg PO BEDTIME PRN PRN Reason: Insomnia Sodium Chloride (0.9 % Sodium Chloride Flush 3 Ml Syringe) 3 ml IVFLUSH QSHIFT [facility] Last Admin: 03/06/24 09:07 Dose: 3 ml Home Medications ?Medication ?Instructions ?Recorded ?Confirmed ?Last Taken ?Type No Known Home Meds 03/05/24 03/05/24 Unknown History Physical Exam 2 Vital Signs: Vital Signs: Last Vital Signs Temp 97.6 F 03/06/24 08:32 Pulse 70 03/06/24 11:02 Resp 24 H 03/06/24 11:06 BP 125/60 03/06/24 11:02 Pulse Ox 100 03/06/24 11:02 O2 Del Method BiPAP 03/06/24 11:02 O2 Flow Rate 15 03/06/24 11:02 BMI result Body Mass Index 51.6 GENERAL APPEARANCE: On BiPAP. Sleepy but arousable. NECK: no carotid bruit, + jugular venous distention. SKIN: no suspicious lesions, warm and dry. HEART: no murmurs, regular rate and rhythm. LUNGS: clear to auscultation anteriorly. ABDOMEN: soft, nontender. EXTREMITIES: no edema. PERIPHERAL PULSES: equal. NEUROLOGIC: Sleepy but arousable. Objective Labs and Meds 03/06/24 05:42 03/06/24 05:42 Lab results: Laboratory Results - last 24 hr 03/05/24 03/05/24 03/05/24 13:03 13:25 15:26 WBC 7.1 RBC 4.24 L Hgb 11.3 L Hct 39.1 L MCV 92.2 MCH 26.7 L MCHC 28.9 L RDW 14.6 Plt Count 250 MPV 8.3 L Immature Gran % (Auto) 1.6 H Neut % (Auto) 86.3 H Lymph % (Auto) 4.9 L [place] % (Auto) 6.2 Eos % (Auto) 0.4 Baso % (Auto) 0.6 Lymph # (Auto) 0.4 L [place] # (Auto) 0.4 Eos # (Auto) 0.0 Baso # (Auto) 0.0 Abs Immat Gran (auto) 0.11 H Absolute Neuts (auto) 6.1 Absolute Nucleated RBC 0.030 H Nucleated RBC % (auto) 0.4 H VBG pH VBG pCO2 VBG pO2 VBG HCO3 VBG O2 Saturation VBG Base Excess Sodium 144 Potassium 4.3 Chloride 102 Carbon Dioxide 33 H Anion Gap 13 BUN 29 H Creatinine 1.28 Estim Creat Clear Calc 98.2 Estimated GFR 58 POC Glucose Random Glucose 275 H Estimat Average Glucose 298 Hemoglobin A1c % 12.0 H Lactic Acid 2.1 H* Lactic Acid F/U @ 2Hr 2.2 H* Calcium 8.3 L Magnesium 2.5 Total Bilirubin 0.8 Direct Bilirubin 0.4 AST 28 ALT 16 Alkaline Phosphatase 228 H Troponin I High Sens 72.7 H 76.8 H B-Natriuretic Peptide 530 H Total Protein 8.5 H Albumin 2.9 L Triglycerides 105 Cholesterol 158 LDL Cholesterol, Calc 86 HDL Cholesterol 51 Influenza Type A (PCR) NEGATIVE Influenza Type B (PCR) NEGATIVE RSV RNA Qual (PCR) NEGATIVE SARS-CoV-2 RNA (RT-PCR) NEGATIVE 03/05/24 03/05/24 03/06/24 18:44 21:17 05:42 WBC 6.9 RBC 4.00 L Hgb 10.6 L Hct 38.0 L MCV 95.0 MCH 26.5 L MCHC 27.9 L RDW 14.9 Plt Count 226 MPV 8.8 L Immature Gran % (Auto) Neut % (Auto) Lymph % (Auto) [place] % (Auto) Eos % (Auto) Baso % (Auto) Lymph # (Auto) [place] # (Auto) Eos # (Auto) Baso # (Auto) Abs Immat Gran (auto) Absolute Neuts (auto) Absolute Nucleated RBC 0.040 H Nucleated RBC % (auto) 0.6 H VBG pH VBG pCO2 VBG pO2 VBG HCO3 VBG O2 Saturation VBG Base Excess Sodium 144 Potassium 4.8 Chloride 104 Carbon Dioxide 33 H Anion Gap 12 BUN 35 H Creatinine 1.51 H Estim Creat Clear Calc 83.3 Estimated GFR 48 POC Glucose 244 H 215 H Random Glucose 234 H Estimat Average Glucose Hemoglobin A1c % Lactic Acid Lactic Acid F/U @ 2Hr Calcium 8.3 L Magnesium 2.6 Total Bilirubin Direct Bilirubin AST ALT Alkaline Phosphatase Troponin I High Sens B-Natriuretic Peptide Total Protein Albumin Triglycerides Cholesterol LDL Cholesterol, Calc HDL Cholesterol Influenza Type A (PCR) Influenza Type B (PCR) RSV RNA Qual (PCR) SARS-CoV-2 RNA (RT-PCR) 03/06/24 03/06/24 03/06/24 05:55 07:25 10:14 WBC RBC Hgb Hct MCV MCH MCHC RDW Plt Count MPV Immature Gran % (Auto) Neut % (Auto) Lymph % (Auto) [place] % (Auto) Eos % (Auto) Baso % (Auto) Lymph # (Auto) [place] # (Auto) Eos # (Auto) Baso # (Auto) Abs Immat Gran (auto) Absolute Neuts (auto) Absolute Nucleated RBC Nucleated RBC % (auto) VBG pH 7.21 L 7.32 VBG pCO2 91 78 VBG pO2 39 104 VBG HCO3 37 H 40 H VBG O2 Saturation 57.0 99.0 VBG Base Excess 6.4 12.0 Sodium Potassium Chloride Carbon Dioxide Anion Gap BUN Creatinine Estim Creat Clear Calc Estimated GFR POC Glucose 205 H Random Glucose Estimat Average Glucose Hemoglobin A1c % Lactic Acid Lactic Acid F/U @ 2Hr Calcium Magnesium Total Bilirubin Direct Bilirubin AST ALT Alkaline Phosphatase Troponin I High Sens B-Natriuretic Peptide Total Protein Albumin Triglycerides Cholesterol LDL Cholesterol, Calc HDL Cholesterol Influenza Type A (PCR) Influenza Type B (PCR) RSV RNA Qual (PCR) SARS-CoV-2 RNA (RT-PCR) Imaging Radiologist's impression: Impressions Chest X-Ray 03/05/24 11:36 IMPRESSION: Left lower lobe pneumonia suspected. Equivocal findings for a tiny left effusion. Electronically signed by: Jovany Andrew MD 03/05/2024 12:06 PM EST RP Chest CTA 03/05/24 13:42 IMPRESSION: No acute pulmonary artery emboli. No aneurysm or dissection, aorta. Pulmonary edema and bilateral pleural effusions, large volume Fleischner guidelines were followed. Electronically signed by: Melecio Garcia MD 03/05/2024 02:39 PM EST RP Abdomen/Pelvis CT 03/05/24 13:51 IMPRESSION: Edema without drainable fluid collection or subcutaneous emphysema in the scrotal sacs and likely bilateral hydroceles. Anasarca, bilateral pleural effusions, large volume. Fleischner guidelines were followed. Electronically signed by: Melecio Garcia MD 03/05/2024 02:49 PM EST RP Assessment and Plan (1) Congestive heart failure: Status: Acute Plan [age] gentleman presenting with shortness of breath and congestive heart failure. He also has mental status changes due to hypercapnia. He is on BiPAP. Clinically appears to be volume overloaded. Agree with IV diuretics. Echocardiography to assess LV function. If he has LV dysfunction then we will add guideline directed medical therapy. Denying any anginal symptoms but overall mental status is not good enough to trust the history. We will follow along with you. Thank you for allowing me to participate in the care of your patient. Please feel free to contact me if you have any questions. Procedures Date of Service Date of Service: 03/06/24
[2024-03-06 13:07] LABS: Glucose, Whole Blood 115 mg/dL (60-115)
[2024-03-06 14:29] LABS: VBG Base Excess 16.2 mmol/L; VBG HCO3 43 mmol/L (22-26); VBG pCO2 64 mmHg; VBG pH 7.43 (7.32-7.43); VBG pO2 57 mmHg
[2024-03-06 14:30] LABS: Venous Blood Gas Refer to POC result
--- NOTE | 2024-03-06 15:10 | MHC.CM.PN ---
WOOD CUT ENGRAVER WANT TO MEET WITH PT. PT WAS SLEEPING WITH APNEA MACHINE TRY AGAIN LATER
[2024-03-06 16:22] LABS: Glucose, Whole Blood 84 mg/dL (60-115)
--- NOTE | 2024-03-06 16:39 | PC.NURSE ---
PT TOLERATING BEING OFF THE BIPAP WELL, VSS AT THIS TIME. HE IS EATING A SANDWICH AND DRINKING JUICE TO SUPPORT BLOOD SUGAR
--- NOTE | 2024-03-06 17:29 | PM.UROCN ---
History of Present Illness Consult details Consult date: 03/06/24 Narrative: CC: Urinary retention/nursing unable to place Grace catheter HPI: Present through emergency room with congestive heart failure. Significant edema of scrotum with tunneling of penis. Nursing staff have tried to place Grace multiple times. Inability to retract foreskin. Grace catheter placed by urologic staff member. Good efflux of urine. See nursing note for description of total output. Total output 1700 cc. Patient is admitted for diuresis IV. Grace catheter will have to remain for 4 weeks. Output greater than a 1000 cc catheter should remain for 1 month. Once IV diuretic is completed and continuous evaluation is less important the patient should be taught how to cycle bladder during the day and empty every 4-6 hours while using a drainage bag overnight. Difficult Grace Placement CPT 27569 Review of Systems Constitutional: Constitutional: Denies chills and Denies fever(s) Cardiovascular: Cardiovascular: Reports no additional cardiovascular complaints and Denies syncope Respiratory: Respiratory: Denies cough Gastrointestinal: Gastrointestinal: Denies abdominal pain and Denies heartburn Genitourinary: Genitourinary: Reports as per HPI and Denies change in libido Musculoskeletal: Musculoskeletal: Reports no additional musculoskeletal complaints and Reports as per HPI Neurologic: Denies syncope Psychiatric: Psychiatric: Denies change in libido Endocrine: Endocrine: Denies change in libido [facility] Social History Social History Unable to assess alcohol history related to: Unknown Smoked in Last 30 Days: No Use of substances other than those prescribed or required for medical reasons: Unknown Advance Directives: No Advance Directives Information Provided: Yes Meds Allergies Allergy/AdvReac Type Severity Reaction Status Date / Time No Known Allergies Allergy Verified 03/05/24 11:42 Active Medications: Current Medications Acetaminophen (Acetaminophen 325 Mg Tablet) 650 mg PO Q6H PRN PRN Reason: Pain, Mild 1-3,fever,headache Calcium Carbonate (Calcium Carbonate 750 Mg Tab.Chew) 750 mg PO Q4H PRN PRN Reason: Heartburn Enoxaparin Sodium (Enoxaparin Sodium 40 Mg/0.4 Ml Syringe) 40 mg SUBCUT Q24H [facility] Last Admin: 03/06/24 09:01 Dose: 40 mg Furosemide (Furosemide 40 Mg/4 Ml Vial) 40 mg IVPUSH BID@0900,1800 [facility]; Protocol Last Admin: 03/06/24 09:01 Dose: 40 mg Glucose (Glucose Gel 15 Gm Gel..Gram.) 15 gm PO Q15M PRN; Protocol PRN Reason: per Hypoglycemia Standing Ord. Dextrose (D10) 250 mls @ 750 mls/hr IV Q15M PRN; Protocol PRN Reason: per Hypoglycemia Standing Ord. Insulin Glargine (Insulin Glargine,Hum.Rec.Anlog 100 Unit/Ml 10 Ml Vial) 15 unit SUBCUT BEDTIME [facility] Last Admin: 03/05/24 21:11 Dose: 15 unit Insulin Human Lispro (Insulin Lispro 100 Unit/Ml 3 Ml Vial) 0 unit SUBCUT QIDACHS [facility]; Protocol Last Admin: 03/06/24 13:05 Dose: Not Given Magnesium Hydroxide (Milk Of Magnesia 30 Ml Oral.Susp) 30 ml PO DAILY PRN PRN Reason: Constipation Melatonin (Melatonin 3 Mg Tablet) 6 mg PO BEDTIME PRN PRN Reason: Insomnia Sodium Chloride (0.9 % Sodium Chloride Flush 3 Ml Syringe) 3 ml IVFLUSH QSHIFT [facility] Last Admin: 03/06/24 09:07 Dose: 3 ml Home Medications ?Medication ?Instructions ?Recorded ?Confirmed ?Last Taken ?Type No Known Home Meds 03/05/24 03/05/24 Unknown History Physical Exam Vital Signs: Vital Signs: Last Vital Signs Temp 98.3 F 03/06/24 16:04 Pulse 70 03/06/24 16:04 Resp 20 03/06/24 16:04 BP 125/77 03/06/24 16:04 Pulse Ox 99 03/06/24 16:04 O2 Del Method Nasal Cannula 03/06/24 16:04 O2 Flow Rate 7 03/06/24 16:04 BMI result Body Mass Index 51.6 Const: General: cooperative, healthy appearing, comfortable and no acute distress Orientation/consciousness: patient oriented x3 HEENT: Face and sinus: Yes normal facial exam Mouth: moist mucous membranes Neck: Neck: Yes normal visual inspection, Yes full ROM and Yes trachea midline Chest: Chest palpation & inspection: normal inspection of the chest Resp: Effort & Inspection: normal respiratory effort, able to speak in complete sentences and no respiratory distress GI: Inspection: Yes normal to inspection Back/Spine/Pelvis: Cervical Spine: normal cervical lordosis Thoracic/Lumbar Spine: thoracic and lumbar spine normal to inspection Skin: General skin exam: no rashes or lesions noted Neuro: General: patient oriented x3, gait normal, tone normal and moves all extremities Extrem: General: Yes normal to inspection and Yes capillary refill normal Results Labs 03/06/24 05:42 03/06/24 05:42 Labs: Abnormal lab results 03/05/24 03/05/24 03/06/24 Range/Units 18:44 21:17 05:42 RBC 4.00 L (4.60-5.80) X10*6/uL Hgb 10.6 L (14.0-18.0) g/dl Hct 38.0 L (42.0-52.0) % MCH 26.5 L (27.0-33.0) pg MCHC 27.9 L (31.0-36.0) g/dl MPV 8.8 L (9.4-12.4) fL Absolute Nucleated RBC 0.040 H (0.0-0.012) X10*3/uL Nucleated RBC % (auto) 0.6 H (0.0-0.2) /100WBC VBG pH (7.32-7.43) VBG HCO3 (22-26) mmol/L Carbon Dioxide 33 H (22-29) mmol/L BUN 35 H (9-16) mg/dL Creatinine 1.51 H (0.5-1.4) mg/dL POC Glucose 244 H 215 H (60-115) mg/dL Random Glucose 234 H (60-115) mg/dL Calcium 8.3 L (8.4-10.2) mg/dL 03/06/24 03/06/24 03/06/24 Range/Units 05:55 07:25 10:14 RBC (4.60-5.80) X10*6/uL Hgb (14.0-18.0) g/dl Hct (42.0-52.0) % MCH (27.0-33.0) pg MCHC (31.0-36.0) g/dl MPV (9.4-12.4) fL Absolute Nucleated RBC (0.0-0.012) X10*3/uL Nucleated RBC % (auto) (0.0-0.2) /100WBC VBG pH 7.21 L (7.32-7.43) VBG HCO3 37 H 40 H (22-26) mmol/L Carbon Dioxide (22-29) mmol/L BUN (9-16) mg/dL Creatinine (0.5-1.4) mg/dL POC Glucose 205 H (60-115) mg/dL Random Glucose (60-115) mg/dL Calcium (8.4-10.2) mg/dL 03/06/24 Range/Units 14:24 RBC (4.60-5.80) X10*6/uL Hgb (14.0-18.0) g/dl Hct (42.0-52.0) % MCH (27.0-33.0) pg MCHC (31.0-36.0) g/dl MPV (9.4-12.4) fL Absolute Nucleated RBC (0.0-0.012) X10*3/uL Nucleated RBC % (auto) (0.0-0.2) /100WBC VBG pH (7.32-7.43) VBG HCO3 43 H (22-26) mmol/L Carbon Dioxide (22-29) mmol/L BUN (9-16) mg/dL Creatinine (0.5-1.4) mg/dL POC Glucose (60-115) mg/dL Random Glucose (60-115) mg/dL Calcium (8.4-10.2) mg/dL Short CBC 03/06/24 Range/Units 05:42 WBC 6.9 (4.8-10.8) X10*3/uL Hgb 10.6 L (14.0-18.0) g/dl Hct 38.0 L (42.0-52.0) % Plt Count 226 (160-400) X10*3/uL BMP 03/06/24 05:42 Sodium 144 Potassium 4.8 Chloride 104 Carbon Dioxide 33 H BUN 35 H Creatinine 1.51 H Calcium 8.3 L All other labs normal. Assessment and Plan (1) Congestive heart failure: Status: Acute (2) Acute urinary retention: Status: Acute Plan Catheter to remain for 4 weeks Procedures Date of Service Date of Service: 03/06/24 Catheter Insertion (Urinary) Date of insertion: 03/06/24 Time of insertion: 17:34 Replacement of catheter present on admission: No Reason for placing: Acute urinary retention (With CHF and requirement for IV diuretic) Antiseptic solution prep: Povidone-Iodine Topical anesthesia used: Yes Catheter type/location: 3-way Urethral Size (Tamazight): 16 Catheter balloon size (mL): 10 Results: successfully catheterized-immediate flow Procedure performed: without complications Comment: 1700 cc at initial placement Additional comments: Difficult Grace catheter requiring urologist
[2024-03-06 17:38] LABS: Glucose, Whole Blood 112 mg/dL (60-115)
--- NOTE | 2024-03-06 17:38 | PC.NURSE ---
DR COREA AT THE BEDSIDE TO PLACE A SHANNON CATH. aPPROX 1700ML URINE OUTPUT IMMEDIATELY FOLLOWING INSERTION
--- NOTE | 2024-03-06 19:50 | PC.NURSE ---
pt medicated per order
--- NOTE | 2024-03-06 20:23 | PC.NURSE ---
A/o x 3, not oriented to situation--why he's here in the hospital. breathing easy/comfortably. waiting for transport to floor.
--- NOTE | 2024-03-06 20:46 | PC.NURSE ---
transported up to floor on NC/4L pox 94%.
[2024-03-06 21:31] LABS: Glucose, Whole Blood 177 mg/dL (60-115)
[2024-03-06] MEDS: Insulin Glargine,Hum.rec.anlog 100 UNIT/ML 10 ML VIAL 15 UNIT SUBCUT (22:29)
[2024-03-07 03:41] VITALS: BP 139/66; PULSE 97; RESP 17; TEMP 37; O2SAT 95
[2024-03-07 04:08] LABS: Appearance Urine Cloudy; Color Urine Yellow; Glucose Urine UA Negative (Negative); Leukocyte Esterase Urine Moderate (2+) (Negative); Nitrite Urine Negative (Negative); UMIC TRIGGER UACC YES; Urine Blood Moderate (2+) (Negative); Urine Ketones Negative (Negative); Urine Protein 100 (2+) mg/dL (Neg-Trace)
[2024-03-07 04:18] LABS: Bacteria Urine None Seen (None Seen); Granular Casts Urine Present; Hyaline Casts Urine >20 /LPF (0-2); Squamous Epithelial Cell Urine 0-2 /HPF (0-2); UACC Culture Trigger YES; WBC Urine 21-50 /HPF (0-5)
[2024-03-07 04:31] LABS: Creatinine Urine 97.36 mg/dL; Total Protein Urine Random 97 mg/dL (<12)
[2024-03-07 07:00] LABS: Hematocrit 32.3 % (42.0-52.0); Hemoglobin 9.6 g/dl (14.0-18.0); Mean Corpuscular HGB Conc 29.7 g/dl (31.0-36.0); Mean Corpuscular Volume 90.7 fL (80.0-98.0); Mean Platelet Volume 8.5 fL (9.4-12.4); Platelet Count 194 X10*3/uL (160-400); Red Blood Count 3.56 X10*6/uL (4.60-5.80); Red Cell Distribution Width 14.7 % (11.0-16.0)
[2024-03-07 07:04] LABS: Venous Blood Gas Refer to POC result
[2024-03-07 07:04] LABS: VBG Base Excess 14.9 mmol/L; VBG HCO3 42 mmol/L (22-26); VBG pCO2 65 mmHg; VBG pH 7.41 (7.32-7.43); VBG pO2 58 mmHg
[2024-03-07 07:14] LABS: Anion Gap 12 (12-20); Blood Urea Nitrogen 37 mg/dL (9-16); Calcium 7.9 mg/dL (8.4-10.2); Carbon Dioxide 32 mmol/L (22-29); Chloride 104 mmol/L (96-108); Creatinine Clr Calc Pharmacy 86.1; Estimated Glomerular Filt Rate 50; Glucose Random 182 mg/dL (60-115); Magnesium 2.3 mg/dL (1.6-2.6); Potassium 4.5 mmol/L (3.3-5.1); Sodium 143 mmol/L (135-145)
[2024-03-07 07:26] LABS: Glucose, Whole Blood 170 mg/dL (60-115)
[2024-03-07 07:50] VITALS: BP 125/60; PULSE 84; RESP 22; TEMP 36.4; O2SAT 98
--- NOTE | 2024-03-07 09:00 | MHC.CM.PN ---
CM met with Patient at bedside. Patient lives alone in a house and required no DME nor services [employer]. Patient has not had a PCP since 1999 and requests no assist in locating one. Patient has no insurance and a referral to [facility] was made on 03/07/2024. Patient is listed as a 2 assist and he may benefit from a PT Eval to assist with disposition; CM has initiated and will follow for dc planning. Patient indicated that he could not remember if he completed a HCP and he was not interested in completing one today. Patient's Mother will transport if Patient is dc'd to home.
[2024-03-07] MEDS: 0.9 % Sodium Chloride Flush 3 ML SYRINGE IVFLUSH ×3 (09:35→21:59)
[2024-03-07] MEDS: Insulin Lispro 100 UNIT/ML 3 ML VIAL SUBCUT ×4 (09:36→21:59)
[2024-03-07] MEDS: Enoxaparin Sodium 40 MG/0.4 ML SYRINGE SUBCUT (09:36)
[2024-03-07] MEDS: Furosemide 40 MG/4 ML VIAL IVPUSH ×2 (09:36→16:49)
--- NOTE | 2024-03-07 10:30 | HO.PM.IMPN ---
Subjective Subjective Date of Service: 03/07/24 Interval History: improved sob Physical Exam Vital Signs: Vital Signs: Last Vital Signs Temp 97.5 F 03/07/24 07:50 Pulse 84 03/07/24 07:50 Resp 22 H 03/07/24 07:50 BP 125/60 03/07/24 07:50 Pulse Ox 98 03/07/24 07:50 O2 Del Method Nasal Cannula 03/07/24 07:50 O2 Flow Rate 3.5 03/07/24 07:50 BMI result Body Mass Index 51.6 Const: General: cooperative, healthy appearing, comfortable and no acute distress Orientation/consciousness: patient oriented x3 HEENT: Face and sinus: Yes normal facial exam Mouth: moist mucous membranes Neck: Neck: Yes normal visual inspection, Yes full ROM and Yes trachea midline Chest: Chest palpation & inspection: normal inspection of the chest Resp: Effort & Inspection: normal respiratory effort, able to speak in complete sentences and no respiratory distress GI: Inspection: Yes normal to inspection Back/Spine/Pelvis: Cervical Spine: normal cervical lordosis Thoracic/Lumbar Spine: thoracic and lumbar spine normal to inspection Skin: General skin exam: no rashes or lesions noted Neuro: General: patient oriented x3, gait normal, tone normal and moves all extremities Extrem: General: Yes normal to inspection and Yes capillary refill normal Objective Data Active Medications Acetaminophen (Acetaminophen 325 Mg Tablet) 650 mg PO Q6H PRN PRN Reason: Pain, Mild 1-3,fever,headache Calcium Carbonate (Calcium Carbonate 750 Mg Tab.Chew) 750 mg PO Q4H PRN PRN Reason: Heartburn Enoxaparin Sodium (Enoxaparin Sodium 40 Mg/0.4 Ml Syringe) 40 mg SUBCUT Q24H [facility] Last Admin: 03/07/24 09:36 Dose: 40 mg Documented By: BRADFORD Furosemide (Furosemide 40 Mg/4 Ml Vial) 40 mg IVPUSH BID@0900,1800 [facility]; Protocol Last Admin: 03/07/24 09:36 Dose: 40 mg Documented By: BRADFORD Glucose (Glucose Gel 15 Gm Gel..Gram.) 15 gm PO Q15M PRN; Protocol PRN Reason: per Hypoglycemia Standing Ord. Dextrose (D10) 250 mls @ 750 mls/hr IV Q15M PRN; Protocol PRN Reason: per Hypoglycemia Standing Ord. Insulin Glargine (Insulin Glargine,Hum.Rec.Anlog 100 Unit/Ml 10 Ml Vial) 15 unit SUBCUT BEDTIME [facility] Last Admin: 03/06/24 22:29 Dose: 15 unit Documented By: MERCEDES Insulin Human Lispro (Insulin Lispro 100 Unit/Ml 3 Ml Vial) 0 unit SUBCUT QIDACHS [facility]; Protocol Last Admin: 03/07/24 09:36 Dose: 2 unit Documented By: BRADFORD Magnesium Hydroxide (Milk Of Magnesia 30 Ml Oral.Susp) 30 ml PO DAILY PRN PRN Reason: Constipation Melatonin (Melatonin 3 Mg Tablet) 6 mg PO BEDTIME PRN PRN Reason: Insomnia Sodium Chloride (0.9 % Sodium Chloride Flush 3 Ml Syringe) [facility] Last Admin: 03/07/24 09:35 Dose: 3 ml Documented By: BRADFORD Labs 03/07/24 06:54 03/07/24 06:54 Labs: Laboratory Results - last 24 hr 03/06/24 03/06/24 03/06/24 13:02 14:24 16:18 MCV MCH MCHC RDW Plt Count MPV Absolute Nucleated RBC Nucleated RBC % (auto) VBG pH 7.43 VBG pCO2 64 VBG pO2 57 VBG HCO3 43 H VBG O2 Saturation 87.0 VBG Base Excess 16.2 Anion Gap Estim Creat Clear Calc Estimated GFR POC Glucose 115 84 Random Glucose Calcium Magnesium Urine Color Urine Appearance Urine pH Ur Specific [place] Urine Protein Urine Glucose (UA) Urine Ketones Urine Blood Urine Nitrite Ur Leukocyte Esterase Urine RBC Urine WBC Ur Squamous Epith Cells Urine Bacteria Hyaline Casts Granular Casts U Random Total Protein Urine Creatinine 03/06/24 03/06/24 03/07/24 17:27 21:26 03:57 MCV MCH MCHC RDW Plt Count MPV Absolute Nucleated RBC Nucleated RBC % (auto) VBG pH VBG pCO2 VBG pO2 VBG HCO3 VBG O2 Saturation VBG Base Excess Anion Gap Estim Creat Clear Calc Estimated GFR POC Glucose 112 177 H Random Glucose Calcium Magnesium Urine Color Yellow Urine Appearance Cloudy Urine pH 5.0 Ur Specific [place] 1.020 Urine Protein 100 (2+) H Urine Glucose (UA) Negative Urine Ketones Negative Urine Blood Moderate (2+) H Urine Nitrite Negative Ur Leukocyte Esterase Moderate (2+) H Urine RBC 6-10 H Urine WBC 21-50 Ur Squamous Epith Cells 0-2 Urine Bacteria None Seen Hyaline Casts >20 Granular Casts Present U Random Total Protein 97 H Urine Creatinine 97.36 03/07/24 03/07/24 03/07/24 06:54 06:59 07:17 MCV 90.7 MCH 27.0 MCHC 29.7 L RDW 14.7 Plt Count 194 MPV 8.5 L Absolute Nucleated RBC 0.000 Nucleated RBC % (auto) 0.0 VBG pH 7.41 VBG pCO2 65 VBG pO2 58 VBG HCO3 42 H VBG O2 Saturation 86.0 VBG Base Excess 14.9 Anion Gap 12 Estim Creat Clear Calc 86.1 Estimated GFR 50 POC Glucose 170 H Random Glucose 182 H Calcium 7.9 L Magnesium 2.3 Urine Color Urine Appearance Urine pH Ur Specific [place] Urine Protein Urine Glucose (UA) Urine Ketones Urine Blood Urine Nitrite Ur Leukocyte Esterase Urine RBC Urine WBC Ur Squamous Epith Cells Urine Bacteria Hyaline Casts Granular Casts U Random Total Protein Urine Creatinine Microbiology Microbiology Results: Microbiology 03/05/24 13:03 Blood Culture - Preliminary Blood - Venous No growth after 24 hours. 03/05/24 13:03 Blood Culture - Preliminary Blood - Venous No growth after 24 hours. Assessment and Plan (1) Congestive heart failure: Status: Acute Plan 59M PMH DM, morbid obesity, non compliance, does not take meds or follow with doctors presented with shortness of breath and scrotal swelling Acute hypoxic and hypercapneic respiratory failure secondary to acute unspecified CHF complicated by acute metabolic encephalopathy Now off BiPAP much improved Continued IV Lasix, echo Cardio appreciated Urinary obstruction due to anasarca/scrotal swelling Urology appreciated, Grace placed keep in place for 1 month Diabetes with hyperglycemia with proteinuria Basal bolus insulin Morbid obesity Weight loss recommended Suspected mood/psych disorder without suicidality eventual psychiatric eval DVT prophylaxis with Lovenox Full Code reason for continued hospitalization: IV diuresis Quality Stroke Does the patient have a stroke diagnosis?: No VTE Prior VTE?: No VTE Risk Level:: Medical - moderate - high VTE Device Contraindication: N/A - Device Ordered VTE Drug Contraindication: Treatment Not Indicated
[2024-03-07 11:25] LABS: Glucose, Whole Blood 179 mg/dL (60-115)
[2024-03-07 12:00] VITALS: BP 126/63; PULSE 81; RESP 20; TEMP 37.3; O2SAT 96
--- NOTE | 2024-03-07 12:36 | PM.PNCARD ---
Subjective Subjective Date of Service: 03/07/24 Interval history: Seen examined at bedside. He is saying his breathing is good currently. He has significant edema including scrotal edema. Physical Exam Vital Signs: Last Vital Signs Temp 97.5 F 03/07/24 07:50 Pulse 84 03/07/24 07:50 Resp 22 H 03/07/24 07:50 BP 125/60 03/07/24 07:50 Pulse Ox 98 03/07/24 07:50 O2 Del Method Nasal Cannula 03/07/24 07:50 O2 Flow Rate 3.5 03/07/24 07:50 BMI result Body Mass Index 51.6 GENERAL APPEARANCE: On BiPAP. Sleepy but arousable. NECK: no carotid bruit, + jugular venous distention. SKIN: no suspicious lesions, warm and dry. HEART: no murmurs, regular rate and rhythm. LUNGS: clear to auscultation anteriorly. ABDOMEN: soft, nontender. EXTREMITIES: 2+ edema bilaterally. PERIPHERAL PULSES: equal. NEUROLOGIC: Sleepy but arousable. Objective Labs and Meds 03/07/24 06:54 03/07/24 06:54 Lab results: Laboratory Results - last 24 hr 03/06/24 03/06/24 03/06/24 13:02 14:24 16:18 WBC RBC Hgb Hct MCV MCH MCHC RDW Plt Count MPV Absolute Nucleated RBC Nucleated RBC % (auto) VBG pH 7.43 VBG pCO2 64 VBG pO2 57 VBG HCO3 43 H VBG O2 Saturation 87.0 VBG Base Excess 16.2 Sodium Potassium Chloride Carbon Dioxide Anion Gap BUN Creatinine Estim Creat Clear Calc Estimated GFR POC Glucose 115 84 Random Glucose Calcium Magnesium Urine Color Urine Appearance Urine pH Ur Specific [place] Urine Protein Urine Glucose (UA) Urine Ketones Urine Blood Urine Nitrite Ur Leukocyte Esterase Urine RBC Urine WBC Ur Squamous Epith Cells Urine Bacteria Hyaline Casts Granular Casts U Random Total Protein Urine Creatinine 03/06/24 03/06/24 03/07/24 17:27 21:26 03:57 WBC RBC Hgb Hct MCV MCH MCHC RDW Plt Count MPV Absolute Nucleated RBC Nucleated RBC % (auto) VBG pH VBG pCO2 VBG pO2 VBG HCO3 VBG O2 Saturation VBG Base Excess Sodium Potassium Chloride Carbon Dioxide Anion Gap BUN Creatinine Estim Creat Clear Calc Estimated GFR POC Glucose 112 177 H Random Glucose Calcium Magnesium Urine Color Yellow Urine Appearance Cloudy Urine pH 5.0 Ur Specific [place] 1.020 Urine Protein 100 (2+) H Urine Glucose (UA) Negative Urine Ketones Negative Urine Blood Moderate (2+) H Urine Nitrite Negative Ur Leukocyte Esterase Moderate (2+) H Urine RBC 6-10 H Urine WBC 21-50 Ur Squamous Epith Cells 0-2 Urine Bacteria None Seen Hyaline Casts >20 Granular Casts Present U Random Total Protein 97 H Urine Creatinine 97.36 03/07/24 03/07/24 03/07/24 06:54 06:59 07:17 WBC 5.0 RBC 3.56 L Hgb 9.6 L Hct 32.3 L MCV 90.7 MCH 27.0 MCHC 29.7 L RDW 14.7 Plt Count 194 MPV 8.5 L Absolute Nucleated RBC 0.000 Nucleated RBC % (auto) 0.0 VBG pH 7.41 VBG pCO2 65 VBG pO2 58 VBG HCO3 42 H VBG O2 Saturation 86.0 VBG Base Excess 14.9 Sodium 143 Potassium 4.5 Chloride 104 Carbon Dioxide 32 H Anion Gap 12 BUN 37 H Creatinine 1.46 H Estim Creat Clear Calc 86.1 Estimated GFR 50 POC Glucose 170 H Random Glucose 182 H Calcium 7.9 L Magnesium 2.3 Urine Color Urine Appearance Urine pH Ur Specific [place] Urine Protein Urine Glucose (UA) Urine Ketones Urine Blood Urine Nitrite Ur Leukocyte Esterase Urine RBC Urine WBC Ur Squamous Epith Cells Urine Bacteria Hyaline Casts Granular Casts U Random Total Protein Urine Creatinine 03/07/24 11:15 WBC RBC Hgb Hct MCV MCH MCHC RDW Plt Count MPV Absolute Nucleated RBC Nucleated RBC % (auto) VBG pH VBG pCO2 VBG pO2 VBG HCO3 VBG O2 Saturation VBG Base Excess Sodium Potassium Chloride Carbon Dioxide Anion Gap BUN Creatinine Estim Creat Clear Calc Estimated GFR POC Glucose 179 H Random Glucose Calcium Magnesium Urine Color Urine Appearance Urine pH Ur Specific [place] Urine Protein Urine Glucose (UA) Urine Ketones Urine Blood Urine Nitrite Ur Leukocyte Esterase Urine RBC Urine WBC Ur Squamous Epith Cells Urine Bacteria Hyaline Casts Granular Casts U Random Total Protein Urine Creatinine Progress Note: A&P Assessment and plan (1) Congestive heart failure: Status: Acute Plan [age] year gentleman presenting with change in mental status due to hypercapnia and congestive heart failure. He has significant scrotal edema and urinary retention and required Grace catheter placed by urologist. Continue IV diuretics currently. Has significant peripheral edema and has right more than left-sided heart failure right now. Echocardiography has shown mildly dilated right ventricle with severe RA pressure elevation. No significant pulmonary hypertension noted. He will need sleep study as outpatient. Continue to diurese for now. Depending on his affordability Jardiance can be added. Avoid beta-petra for now. We will follow along with you. He will need ischemic evaluation as outpatient. Thank you for allowing me to participate in the care of your patient. Please feel free to contact me if you have any questions. Time Spent With Patient Time: Total time managing care of this patient today ____ minutes. Progress Note: Quality Stroke Does the patient have a stroke diagnosis?: No Procedures Date of Service Date of Service: 03/07/24
[2024-03-07 16:00] VITALS: BP 156/71; PULSE 84; RESP 18; TEMP 36.9; O2SAT 96
[2024-03-07 16:02] LABS: Glucose, Whole Blood 171 mg/dL (60-115)
[2024-03-07 19:16] VITALS: BP 167/77; PULSE 92; RESP 16; TEMP 36.8; O2SAT 97
[2024-03-07 20:50] LABS: Glucose, Whole Blood 214 mg/dL (60-115)
[2024-03-07] MEDS: Insulin Glargine,Hum.rec.anlog 100 UNIT/ML 10 ML VIAL 15 UNIT SUBCUT (21:59)
[2024-03-07 23:06] VITALS: BP 162/80; PULSE 94; RESP 18; TEMP 36.7; O2SAT 96
[2024-03-08 03:14] VITALS: BP 156/72; PULSE 82; RESP 17; TEMP 37; O2SAT 96
[2024-03-08 07:15] VITALS: BP 145/78; PULSE 86; RESP 17; TEMP 36.3; O2SAT 96
[2024-03-08 07:19] LABS: Glucose, Whole Blood 130 mg/dL (60-115)
[2024-03-08 07:35] LABS: Hematocrit 32.9 % (42.0-52.0); Hemoglobin 9.3 g/dl (14.0-18.0); Mean Corpuscular HGB Conc 28.3 g/dl (31.0-36.0); Mean Corpuscular Hemoglobin 25.9 pg (27.0-33.0); Mean Corpuscular Volume 91.6 fL (80.0-98.0); Mean Platelet Volume 8.3 fL (9.4-12.4); Platelet Count 190 X10*3/uL (160-400); Red Blood Count 3.59 X10*6/uL (4.60-5.80); Red Cell Distribution Width 14.5 % (11.0-16.0); White Blood Count 4.6 X10*3/uL (4.8-10.8)
[2024-03-08] MEDS: Furosemide 40 MG/4 ML VIAL IVPUSH (08:19)
[2024-03-08] MEDS: Enoxaparin Sodium 40 MG/0.4 ML SYRINGE SUBCUT (08:19)
[2024-03-08] MEDS: 0.9 % Sodium Chloride Flush 3 ML SYRINGE IVFLUSH ×3 (08:20→21:05)
[2024-03-08 08:22] LABS: Anion Gap 10 (12-20); Blood Urea Nitrogen 38 mg/dL (9-16); Calcium 7.8 mg/dL (8.4-10.2); Carbon Dioxide 33 mmol/L (22-29); Chloride 101 mmol/L (96-108); Creatinine Clr Calc Pharmacy 103.1; Estimated Glomerular Filt Rate > 60; Glucose Random 129 mg/dL (60-115); Magnesium 2.2 mg/dL (1.6-2.6); Potassium 4.4 mmol/L (3.3-5.1); Sodium 140 mmol/L (135-145)
--- NOTE | 2024-03-08 09:56 | HO.PM.IMPN ---
Subjective Subjective Date of Service: 03/08/24 Interval History: mild improvement in anasarca Physical Exam Vital Signs: Vital Signs: Last Vital Signs Temp 97.3 F 03/08/24 07:15 Pulse 86 03/08/24 07:15 Resp 17 03/08/24 07:15 BP 145/78 H 03/08/24 07:15 Pulse Ox 96 03/08/24 07:15 O2 Del Method Nasal Cannula 03/08/24 07:15 O2 Flow Rate 4 03/08/24 07:15 BMI result Body Mass Index 51.6 GENERAL APPEARANCE: On BiPAP. Sleepy but arousable. NECK: no carotid bruit, + jugular venous distention. SKIN: no suspicious lesions, warm and dry. HEART: no murmurs, regular rate and rhythm. LUNGS: clear to auscultation anteriorly. ABDOMEN: soft, nontender. EXTREMITIES: 2+ edema bilaterally. PERIPHERAL PULSES: equal. NEUROLOGIC: Sleepy but arousable. Objective Data Active Medications Acetaminophen (Acetaminophen 325 Mg Tablet) 650 mg PO Q6H PRN PRN Reason: Pain, Mild 1-3,fever,headache Calcium Carbonate (Calcium Carbonate 750 Mg Tab.Chew) 750 mg PO Q4H PRN PRN Reason: Heartburn Enoxaparin Sodium (Enoxaparin Sodium 40 Mg/0.4 Ml Syringe) 40 mg SUBCUT Q24H [facility] Last Admin: 03/08/24 08:19 Dose: 40 mg Documented By: BRADFORD Furosemide (Furosemide 40 Mg/4 Ml Vial) 40 mg IVPUSH BID@0900,1800 [facility]; Protocol Last Admin: 03/08/24 08:19 Dose: 40 mg Documented By: BRADFORD Glucose (Glucose Gel 15 Gm Gel..Gram.) 15 gm PO Q15M PRN; Protocol PRN Reason: per Hypoglycemia Standing Ord. Dextrose (D10) 250 mls @ 750 mls/hr IV Q15M PRN; Protocol PRN Reason: per Hypoglycemia Standing Ord. Insulin Glargine (Insulin Glargine,Hum.Rec.Anlog 100 Unit/Ml 10 Ml Vial) 15 unit SUBCUT BEDTIME [facility] Last Admin: 03/07/24 21:59 Dose: 15 unit Documented By: GERSON Insulin Human Lispro (Insulin Lispro 100 Unit/Ml 3 Ml Vial) 0 unit SUBCUT QIDACHS [facility]; Protocol Last Admin: 03/08/24 08:16 Dose: Not Given Documented By: BRADFORD Non-Admin Reason: poc= 130 Magnesium Hydroxide (Milk Of Magnesia 30 Ml Oral.Susp) 30 ml PO DAILY PRN PRN Reason: Constipation Melatonin (Melatonin 3 Mg Tablet) 6 mg PO BEDTIME PRN PRN Reason: Insomnia Sodium Chloride (0.9 % Sodium Chloride Flush 3 Ml Syringe) 3 ml IVFLUSH [facility] Last Admin: 03/08/24 08:20 Dose: 3 ml Documented By: BRADFORD Labs 03/08/24 07:14 03/08/24 07:14 Labs: Laboratory Results - last 24 hr 03/07/24 03/07/24 03/07/24 11:15 15:58 20:44 MCV MCH MCHC RDW Plt Count MPV Absolute Nucleated RBC Nucleated RBC % (auto) Anion Gap Estim Creat Clear Calc Estimated GFR POC Glucose 179 H 171 H 214 H Random Glucose Calcium Magnesium 03/08/24 07:14 MCV 91.6 MCH 25.9 L MCHC 28.3 L RDW 14.5 Plt Count 190 MPV 8.3 L Absolute Nucleated RBC 0.000 Nucleated RBC % (auto) 0.0 Anion Gap 10 L Estim Creat Clear Calc 103.1 Estimated GFR > 60 POC Glucose 130 H Random Glucose 129 H Calcium 7.8 L Magnesium 2.2 Microbiology Microbiology Results: Microbiology 03/05/24 13:03 Blood Culture - Preliminary Blood - Venous No growth after 48 hours. 03/05/24 13:03 Blood Culture - Preliminary Blood - Venous No growth after 48 hours. Assessment and Plan (1) Congestive heart failure: Status: Acute Plan 59M PMH DM, morbid obesity, non compliance, does not take meds or follow with doctors presented with shortness of breath and scrotal swelling Acute hypoxic and hypercapneic respiratory failure secondary to acute diatolic CHF complicated by acute metabolic encephalopathy Now off BiPAP much improved Continued IV Lasix, echo - ef 50-55%, indeterminate filling pressures, mild RVH, LVH Cardio appreciated Urinary obstruction due to anasarca/scrotal swelling Urology appreciated, Grace placed, keep in place for 1 month Diabetes with hyperglycemia with proteinuria Basal bolus insulin Morbid obesity Weight loss recommended Suspected mood/psych disorder without suicidality eventual psychiatric eval DVT prophylaxis with Lovenox Full Code reason for continued hospitalization: IV diuresis Quality Stroke Does the patient have a stroke diagnosis?: No VTE Prior VTE?: No VTE Risk Level:: Medical - moderate - high VTE Device Contraindication: N/A - Device Ordered VTE Drug Contraindication: Treatment Not Indicated
--- NOTE | 2024-03-08 09:58 | MHC.CM.PN ---
With Patient's permission, CM met with Patient and his Mother at bedside. Mother was concerned that Patient has no insurance; CM informed her that [facility] is already involved. Mother asked if services could be provided at dc; CM explained that PT is likely to eval Patient and CM can assist if PT recommends STR and Patient secures insurance. Because Patient has no PCP(and no insurance yet), he would not be eligible for VNA. CM will follow.
[2024-03-08 11:19] LABS: Glucose, Whole Blood 195 mg/dL (60-115)
[2024-03-08 11:31] VITALS: BP 139/73; PULSE 82; RESP 19; TEMP 36.6; O2SAT 95
[2024-03-08] MEDS: Insulin Lispro 100 UNIT/ML 3 ML VIAL SUBCUT ×3 (11:55→21:03)
--- NOTE | 2024-03-08 13:31 | PM.PNCARD ---
Subjective Subjective Date of Service: 03/08/24 Interval history: Seen examined at bedside. Continues to have anasarca. Breathing is stable. Physical Exam Vital Signs: Last Vital Signs Temp 98 F 03/08/24 11:31 Pulse 82 03/08/24 11:31 Resp 19 03/08/24 11:31 BP 139/73 03/08/24 11:31 Pulse Ox 95 03/08/24 11:31 O2 Del Method Nasal Cannula 03/08/24 11:31 O2 Flow Rate 2 03/08/24 11:31 BMI result Body Mass Index 51.6 GENERAL APPEARANCE: No acute distress. NECK: no carotid bruit, + jugular venous distention. SKIN: no suspicious lesions, warm and dry. HEART: no murmurs, regular rate and rhythm. LUNGS: clear to auscultation anteriorly. ABDOMEN: soft, nontender. EXTREMITIES: 2+ edema bilaterally. PERIPHERAL PULSES: equal. NEUROLOGIC: Sleepy but arousable. Objective Labs and Meds 03/08/24 07:14 03/08/24 07:14 Lab results: Laboratory Results - last 24 hr 03/07/24 03/07/24 03/08/24 15:58 20:44 07:14 WBC 4.6 L RBC 3.59 L Hgb 9.3 L Hct 32.9 L MCV 91.6 MCH 25.9 L MCHC 28.3 L RDW 14.5 Plt Count 190 MPV 8.3 L Absolute Nucleated RBC 0.000 Nucleated RBC % (auto) 0.0 Sodium 140 Potassium 4.4 Chloride 101 Carbon Dioxide 33 H Anion Gap 10 L BUN 38 H Creatinine 1.22 Estim Creat Clear Calc 103.1 Estimated GFR > 60 POC Glucose 171 H 214 H 130 H Random Glucose 129 H Calcium 7.8 L Magnesium 2.2 03/08/24 11:16 WBC RBC Hgb Hct MCV MCH MCHC RDW Plt Count MPV Absolute Nucleated RBC Nucleated RBC % (auto) Sodium Potassium Chloride Carbon Dioxide Anion Gap BUN Creatinine Estim Creat Clear Calc Estimated GFR POC Glucose 195 H Random Glucose Calcium Magnesium Progress Note: A&P Assessment and plan (1) Congestive heart failure: Status: Acute Plan 59-year-old gentleman presenting with change in mental status due to hypercapnia and congestive heart failure. He had right and left-sided failure but mostly has right-sided failure at this point. Likely under lying cause is obesity hypoventilation/sleep apnea. Continue to diurese. He has significant edema and would probably do better with the Lasix drip. Monitor electrolytes closely. Add spironolactone 25 mg daily. Add Jardiance 10 mg daily. He will need ischemic evaluation as outpatient. Thank you for allowing me to participate in the care of your patient. Please feel free to contact me if you have any questions. Time Spent With Patient Time: Total time managing care of this patient today ____ minutes. Progress Note: Quality Stroke Does the patient have a stroke diagnosis?: No Procedures Date of Service Date of Service: 03/08/24
[2024-03-08] MEDS: Furosemide 200 MG in 0.9 % Sodium Chloride 80 ML IVCONT (13:51)
[2024-03-08 15:16] VITALS: BP 127/81; PULSE 89; RESP 17; TEMP 36.8; O2SAT 94
[2024-03-08 16:08] LABS: Glucose, Whole Blood 181 mg/dL (60-115)
[2024-03-08 19:49] VITALS: BP 166/82; PULSE 64; RESP 16; TEMP 37.3; O2SAT 96
[2024-03-08 20:10] LABS: Glucose, Whole Blood 215 mg/dL (60-115)
[2024-03-08] MEDS: Insulin Glargine,Hum.rec.anlog 100 UNIT/ML 10 ML VIAL 15 UNIT SUBCUT (21:03)
[2024-03-08 23:24] VITALS: BP 160/70; PULSE 87; RESP 18; TEMP 37; O2SAT 95
[2024-03-09] VITALS (7 sets, daily range): BP systolic 130–163; BP diastolic 61–79; PULSE 78–96; RESP 20; TEMP 36.3–37.6; O2SAT 96–98
[2024-03-09 07:12] LABS: Hematocrit 31.9 % (42.0-52.0); Hemoglobin 9.5 g/dl (14.0-18.0); Mean Corpuscular HGB Conc 29.8 g/dl (31.0-36.0); Mean Corpuscular Hemoglobin 26.6 pg (27.0-33.0); Mean Corpuscular Volume 89.4 fL (80.0-98.0); Mean Platelet Volume 8.4 fL (9.4-12.4); Platelet Count 171 X10*3/uL (160-400); Red Blood Count 3.57 X10*6/uL (4.60-5.80); Red Cell Distribution Width 14.4 % (11.0-16.0); White Blood Count 3.9 X10*3/uL (4.8-10.8)
[2024-03-09 07:28] LABS: Anion Gap 9 (12-20); Blood Urea Nitrogen 31 mg/dL (9-16); Calcium 8.4 mg/dL (8.4-10.2); Carbon Dioxide 37 mmol/L (22-29); Chloride 97 mmol/L (96-108); Creatinine Clr Calc Pharmacy 104.8; Estimated Glomerular Filt Rate > 60; Glucose Random 137 mg/dL (60-115); Potassium 4.3 mmol/L (3.3-5.1); Sodium 139 mmol/L (135-145)
[2024-03-09 07:40] LABS: Glucose, Whole Blood 131 mg/dL (60-115)
[2024-03-09] MEDS: 0.9 % Sodium Chloride Flush 3 ML SYRINGE IVFLUSH ×3 (08:59→21:47)
--- NOTE | 2024-03-09 11:10 | PM.PNCARD ---
Subjective Subjective Date of Service: 03/09/24 Principal diagnosis: Right-sided heart failure Interval history: Patient says he does not not why he is here, after talking to hospitalist team he has been told every day that he was congestive heart failure. I did reiterate that he was congestive heart failure. Currently has a Grace catheter and is seems like he is diuresing well. Was started on IV Lasix drip yesterday. Although intake and output chart appear to suggest that he has not been diuresing adequately. Blood pressure is stable. Currently on oxygen therapy. Denies any shortness of breath. Review of Systems Review of Systems Yes Unobtainable due to mental status Physical Exam Vital Signs: Last Vital Signs Temp 99.4 F 03/09/24 07:14 Pulse 80 03/09/24 07:14 Resp 20 03/09/24 07:14 BP 130/61 03/09/24 07:14 Pulse Ox 98 03/09/24 07:14 O2 Del Method Nasal Cannula 03/09/24 07:14 O2 Flow Rate 3 03/09/24 07:14 BMI result Body Mass Index 51.6 GENERAL APPEARANCE: No acute distress. NECK: no carotid bruit, + jugular venous distention. SKIN: no suspicious lesions, warm and dry. HEART: no murmurs, regular rate and rhythm. LUNGS: clear to auscultation anteriorly. ABDOMEN: soft, nontender. EXTREMITIES: 2+ edema bilaterally. PERIPHERAL PULSES: equal. NEUROLOGIC: Sleepy but arousable. Objective Labs and Meds 03/09/24 06:41 03/09/24 06:41 Lab results: Laboratory Results - last 24 hr 03/08/24 03/08/24 03/08/24 11:16 16:03 20:03 WBC RBC Hgb Hct MCV MCH MCHC RDW Plt Count MPV Absolute Nucleated RBC Nucleated RBC % (auto) Sodium Potassium Chloride Carbon Dioxide Anion Gap BUN Creatinine Estim Creat Clear Calc Estimated GFR POC Glucose 195 H 181 H 215 H Random Glucose Calcium 03/09/24 03/09/24 06:41 07:13 WBC 3.9 L RBC 3.57 L Hgb 9.5 L Hct 31.9 L MCV 89.4 MCH 26.6 L MCHC 29.8 L RDW 14.4 Plt Count 171 MPV 8.4 L Absolute Nucleated RBC 0.000 Nucleated RBC % (auto) 0.0 Sodium 139 Potassium 4.3 Chloride 97 Carbon Dioxide 37 H Anion Gap 9 L BUN 31 H Creatinine 1.20 Estim Creat Clear Calc 104.8 Estimated GFR > 60 POC Glucose 131 H Random Glucose 137 H Calcium 8.4 D Progress Note: A&P Assessment and plan (1) Decompensated heart failure: Status: Acute Assessment and Plan: Decompensated congestive heart failure in this middle-aged man with significant obesity with elevated CO2 suggestive of obesity hypoventilation syndrome and possibly high likelihood of underlying sleep apnea causing his heart failure syndrome. I would continue to diurese him for now continue 5 mg an hour of Lasix drip. Add Jardiance 10 mg to his regimen. Also add spironolactone 12.5 mg to his regimen. Continue monitor his blood pressure. Strict intake and output chart needs to be pursued. I think he would benefit from nocturnal BiPAP therapy. Continue oxygen supplementation. Continue supportive care. Out of bed to chair. Findings discussed with him but he seems to not completely comprehended. Please provide him with CHF education. Time Spent With Patient Time: Total time managing care of this patient today ____ minutes. Progress Note: Quality Stroke Does the patient have a stroke diagnosis?: No Procedures Date of Service Date of Service: 03/09/24
[2024-03-09 11:13] LABS: Glucose, Whole Blood 207 mg/dL (60-115)
--- NOTE | 2024-03-09 11:28 | P.PNIM_ITS ---
Subjective Subjective Date of Service: 03/09/24 Interval History: mild improvement in anasarca Physical Exam 2 Vital Signs: Vital Signs: Last Vital Signs Temp 98.3 F 03/09/24 11:09 Pulse 96 03/09/24 11:09 Resp 20 03/09/24 11:09 BP 151/71 H 03/09/24 11:09 Pulse Ox 98 03/09/24 11:09 O2 Del Method Nasal Cannula 03/09/24 11:09 O2 Flow Rate 3 03/09/24 11:09 BMI result Body Mass Index 51.6 GENERAL APPEARANCE: No acute distress. NECK: no carotid bruit, + jugular venous distention. SKIN: no suspicious lesions, warm and dry. HEART: no murmurs, regular rate and rhythm. LUNGS: clear to auscultation anteriorly. ABDOMEN: soft, nontender. EXTREMITIES: 2+ edema bilaterally. PERIPHERAL PULSES: equal. NEUROLOGIC: Sleepy but arousable. Objective Data Active Medications Acetaminophen (Acetaminophen 325 Mg Tablet) 650 mg PO Q6H PRN PRN Reason: Pain, Mild 1-3,fever,headache Calcium Carbonate (Calcium Carbonate 750 Mg Tab.Chew) 750 mg PO Q4H PRN PRN Reason: Heartburn Glucose (Glucose Gel 15 Gm Gel..Gram.) 15 gm PO Q15M PRN; Protocol PRN Reason: per Hypoglycemia Standing Ord. Dextrose (D10) 250 mls @ 750 mls/hr IV Q15M PRN; Protocol PRN Reason: per Hypoglycemia Standing Ord. Furosemide 200 mg/ Sodium (Chloride) 100 mls @ 2.5 mls/hr IVCONT .Q24H [facility] Last Admin: 03/08/24 13:51 Dose: 5 mg/hr, 2.5 mls/hr Documented By: BRADFORD Insulin Glargine (Insulin Glargine,Hum.Rec.Anlog 100 Unit/Ml 10 Ml Vial) 15 unit SUBCUT BEDTIME [facility] Last Admin: 03/08/24 21:03 Dose: 15 unit Documented By: LINWOOD Insulin Human Lispro (Insulin Lispro 100 Unit/Ml 3 Ml Vial) 0 unit SUBCUT QIDACHS [facility]; Protocol Last Admin: 03/09/24 08:58 Dose: Not Given Documented By: WILMAN Non-Admin Reason: No Insulin Coverage Magnesium Hydroxide (Milk Of Magnesia 30 Ml Oral.Susp) 30 ml PO DAILY PRN PRN Reason: Constipation Melatonin (Melatonin 3 Mg Tablet) 6 mg PO BEDTIME PRN PRN Reason: Insomnia Sodium Chloride (0.9 % Sodium Chloride Flush 3 Ml Syringe) 3 ml IVFLUSH QSHIFT [facility] Last Admin: 03/09/24 08:59 Dose: 3 ml Documented By: WILMAN Labs 03/09/24 06:41 03/09/24 06:41 Labs: Laboratory Results - last 24 hr 03/08/24 03/08/24 03/09/24 16:03 20:03 06:41 MCV 89.4 MCH 26.6 L MCHC 29.8 L RDW 14.4 Plt Count 171 MPV 8.4 L Absolute Nucleated RBC 0.000 Nucleated RBC % (auto) 0.0 Anion Gap 9 L Estim Creat Clear Calc 104.8 Estimated GFR > 60 POC Glucose 181 H 215 H Random Glucose 137 H Calcium 8.4 D 03/09/24 03/09/24 07:13 11:08 MCV MCH MCHC RDW Plt Count MPV Absolute Nucleated RBC Nucleated RBC % (auto) Anion Gap Estim Creat Clear Calc Estimated GFR POC Glucose 131 H 207 H Random Glucose Calcium Microbiology Microbiology Results: Microbiology 03/07/24 Unknown Urine Culture - Final Urine Catheterized - Grace Catheter Assessment and Plan (1) Congestive heart failure: Status: Acute Plan 59M PMH DM, morbid obesity, non compliance, does not take meds or follow with doctors presented with shortness of breath and scrotal swelling Acute hypoxic and hypercapneic respiratory failure secondary to acute diatolic CHF complicated by acute metabolic encephalopathy Now off BiPAP much improved Continued IV Lasix drip, echo - ef 50-55%, indeterminate filling pressures, mild RVH, LVH Cardio appreciated Urinary obstruction due to anasarca/scrotal swelling Urology appreciated, Grace placed, keep in place for 1 month Diabetes with hyperglycemia with proteinuria Basal bolus insulin Morbid obesity adn suspected OHS/YULIANA Weight loss recommended cpap at night Suspected mood/psych disorder without suicidality eventual psychiatric eval DVT prophylaxis with Lovenox Full Code reason for continued hospitalization: IV diuresis Quality Stroke Does the patient have a stroke diagnosis?: No VTE Prior VTE?: No VTE Risk Level:: Medical - moderate - high VTE Device Contraindication: N/A - Device Ordered VTE Drug Contraindication: Treatment Not Indicated
[2024-03-09] MEDS: Furosemide 200 MG in 0.9 % Sodium Chloride 80 ML IVCONT (12:52)
[2024-03-09] MEDS: Insulin Lispro 100 UNIT/ML 3 ML VIAL SUBCUT ×3 (12:52→21:46)
--- NOTE | 2024-03-09 15:40 | MHC.CM.PN ---
Per rounds, pt is not ready to DC, he continues to require IV diuresis. CM to follow for DC needs.
[2024-03-09 16:26] LABS: Glucose, Whole Blood 197 mg/dL (60-115)
[2024-03-09] MEDS: Acetaminophen 325 MG TABLET 650 MG PO (16:51)
--- NOTE | 2024-03-09 17:17 | HO.SKINPHOTO ---
Location: Category: Stage: Length: Width: Depth: cm Location: Category: Stage: Length: Width: Depth: cm Location: Category: Stage: Length: Width: Depth: cm Location: Category: Stage: Length: Width: Depth: cm Location: Category: Stage: Length: Width: Depth: cm Location: Category: Stage: Length: Width: Depth: cm
[2024-03-09 20:25] LABS: Glucose, Whole Blood 188 mg/dL (60-115)
[2024-03-09] MEDS: Insulin Glargine,Hum.rec.anlog 100 UNIT/ML 10 ML VIAL 15 UNIT SUBCUT (21:46)
[2024-03-10 03:38] VITALS: BP 169/84; PULSE 76; RESP 20; TEMP 36.7; O2SAT 98
[2024-03-10 07:11] VITALS: BP 164/82; PULSE 81; RESP 20; TEMP 36.7; O2SAT 97
[2024-03-10 07:15] LABS: Glucose, Whole Blood 134 mg/dL (60-115)
[2024-03-10 07:35] LABS: Hematocrit 35.9 % (42.0-52.0); Hemoglobin 10.3 g/dl (14.0-18.0); Mean Corpuscular HGB Conc 28.7 g/dl (31.0-36.0); Mean Corpuscular Hemoglobin 26.1 pg (27.0-33.0); Mean Corpuscular Volume 90.9 fL (80.0-98.0); Mean Platelet Volume 8.7 fL (9.4-12.4); Platelet Count 193 X10*3/uL (160-400); Red Blood Count 3.95 X10*6/uL (4.60-5.80); Red Cell Distribution Width 13.8 % (11.0-16.0); White Blood Count 3.9 X10*3/uL (4.8-10.8)
[2024-03-10 07:52] LABS: Anion Gap 7 (12-20); Blood Urea Nitrogen 26 mg/dL (9-16); Calcium 8.4 mg/dL (8.4-10.2); Chloride 95 mmol/L (96-108); Creatinine Clr Calc Pharmacy 124.5; Estimated Glomerular Filt Rate > 60; Glucose Random 152 mg/dL (60-115); Magnesium 1.9 mg/dL (1.6-2.6); Potassium 4.3 mmol/L (3.3-5.1); Sodium 140 mmol/L (135-145)
[2024-03-10 07:54] LABS: Carbon Dioxide 42 mmol/L (22-29)
[2024-03-10] MEDS: 0.9 % Sodium Chloride Flush 3 ML SYRINGE IVFLUSH ×2 (08:55→21:27)
--- NOTE | 2024-03-10 09:52 | HO.PM.IMPN ---
Subjective Subjective Date of Service: 03/10/24 Interval History: mild improvement in anasarca Physical Exam Vital Signs: Vital Signs: Last Vital Signs Temp 98.0 F 03/10/24 07:11 Pulse 81 03/10/24 07:11 Resp 20 03/10/24 07:11 BP 164/82 H 03/10/24 07:11 Pulse Ox 97 03/10/24 07:11 O2 Del Method Nasal Cannula 03/10/24 07:11 O2 Flow Rate 3 03/10/24 07:11 BMI result Body Mass Index 51.6 GENERAL APPEARANCE: No acute distress. NECK: no carotid bruit, + jugular venous distention. SKIN: no suspicious lesions, warm and dry. HEART: no murmurs, regular rate and rhythm. LUNGS: clear to auscultation anteriorly. ABDOMEN: soft, nontender. EXTREMITIES: 2+ edema bilaterally. PERIPHERAL PULSES: equal. NEUROLOGIC: Sleepy but arousable. Objective Data Active Medications Acetaminophen (Acetaminophen 325 Mg Tablet) 650 mg PO Q6H PRN PRN Reason: Pain, Mild 1-3,fever,headache Last Admin: 03/09/24 16:51 Dose: 650 mg Documented By: WILMAN Calcium Carbonate (Calcium Carbonate 750 Mg Tab.Chew) 750 mg PO Q4H PRN PRN Reason: Heartburn Glucose (Glucose Gel 15 Gm Gel..Gram.) 15 gm PO Q15M PRN; Protocol PRN Reason: per Hypoglycemia Standing Ord. Dextrose (D10) 250 mls @ 750 mls/hr IV Q15M PRN; Protocol PRN Reason: per Hypoglycemia Standing Ord. Furosemide 200 mg/ Sodium (Chloride) 100 mls @ 2.5 mls/hr IVCONT .Q24H [facility] Last Admin: 03/09/24 12:52 Dose: 5 mg/hr, 2.5 mls/hr Documented By: WILMAN Insulin Glargine (Insulin Glargine,Hum.Rec.Anlog 100 Unit/Ml 10 Ml Vial) 15 unit SUBCUT BEDTIME [facility] Last Admin: 03/09/24 21:46 Dose: 15 unit Documented By: HERRERA Insulin Human Lispro (Insulin Lispro 100 Unit/Ml 3 Ml Vial) 0 unit SUBCUT QIDACHS [facility]; Protocol Last Admin: 03/10/24 07:34 Dose: Not Given Documented By: WILMAN Non-Admin Reason: No Insulin Coverage Magnesium Hydroxide (Milk Of Magnesia 30 Ml Oral.Susp) 30 ml PO DAILY PRN PRN Reason: Constipation Melatonin (Melatonin 3 Mg Tablet) 6 mg PO BEDTIME PRN PRN Reason: Insomnia Sodium Chloride (0.9 % Sodium Chloride Flush 3 Ml Syringe) 3 ml IVFLUSH QSHIFT [facility] Last Admin: 03/10/24 08:55 Dose: 3 ml Documented By: WILMAN Labs 03/10/24 06:18 03/10/24 06:18 Labs: Laboratory Results - last 24 hr 03/09/24 03/09/24 03/09/24 11:08 16:13 20:18 MCV MCH MCHC RDW Plt Count MPV Absolute Nucleated RBC Nucleated RBC % (auto) Anion Gap Estim Creat Clear Calc Estimated GFR POC Glucose 207 H 197 H 188 H Random Glucose Calcium Magnesium 03/10/24 03/10/24 06:18 07:08 MCV 90.9 MCH 26.1 L MCHC 28.7 L RDW 13.8 Plt Count 193 MPV 8.7 L Absolute Nucleated RBC 0.000 Nucleated RBC % (auto) 0.0 Anion Gap 7 L Estim Creat Clear Calc 124.5 Estimated GFR > 60 POC Glucose 134 H Random Glucose 152 H Calcium 8.4 Magnesium 1.9 Assessment and Plan (1) Congestive heart failure: Status: Acute Plan 59M PMH DM, morbid obesity, non compliance, does not take meds or follow with doctors presented with shortness of breath and scrotal swelling Acute hypoxic and hypercapneic respiratory failure secondary to acute diatolic CHF complicated by acute metabolic encephalopathy Now off BiPAP much improved Continued IV Lasix drip, echo - ef 50-55%, indeterminate filling pressures, mild RVH, LVH Cardio appreciated Urinary obstruction due to anasarca/scrotal swelling Urology appreciated, Grace placed, keep in place for 1 month Diabetes with hyperglycemia with proteinuria Basal bolus insulin Morbid obesity adn suspected OHS/YULIANA Weight loss recommended cpap at night Suspected mood/psych disorder without suicidality eventual psychiatric eval DVT prophylaxis with Lovenox Full Code reason for continued hospitalization: IV diuresis Quality Stroke Does the patient have a stroke diagnosis?: No VTE Prior VTE?: No VTE Risk Level:: Medical - moderate - high VTE Device Contraindication: N/A - Device Ordered VTE Drug Contraindication: Treatment Not Indicated
[2024-03-10 10:58] LABS: Glucose, Whole Blood 193 mg/dL (60-115)
--- NOTE | 2024-03-10 11:21 | PM.PNCARD ---
Subjective Subjective Date of Service: 03/10/24 Principal diagnosis: Right-sided heart failure Interval history: Patient is very non involved in his care. When asked how he is feeling said he does not know. When asked whether his leg edema is improved he said does not know. When asked whether he is diuresing he said he does not know. He was refusing to get out of bed to chair. Also refusing to get cleaned up. Has remained hemodynamically stable. Overnight has significant diuresis about 3 L negative balance. Review of Systems Review of Systems Yes Unobtainable due to mental status Physical Exam Vital Signs: Last Vital Signs Temp 98.0 F 03/10/24 07:11 Pulse 81 03/10/24 07:11 Resp 20 03/10/24 07:11 BP 164/82 H 03/10/24 07:11 Pulse Ox 97 03/10/24 07:11 O2 Del Method Nasal Cannula 03/10/24 07:11 O2 Flow Rate 3 03/10/24 07:11 BMI result Body Mass Index 51.6 GENERAL APPEARANCE: No acute distress. NECK: no carotid bruit, + jugular venous distention. SKIN: no suspicious lesions, warm and dry. HEART: no murmurs, regular rate and rhythm. LUNGS: clear to auscultation anteriorly. ABDOMEN: soft, nontender. EXTREMITIES: 2+ edema bilaterally. PERIPHERAL PULSES: equal. NEUROLOGIC: Sleepy but arousable. Objective Labs and Meds 03/10/24 06:18 03/10/24 06:18 Lab results: Laboratory Results - last 24 hr 03/09/24 03/09/24 03/10/24 16:13 20:18 06:18 WBC 3.9 L RBC 3.95 L Hgb 10.3 L Hct 35.9 L MCV 90.9 MCH 26.1 L MCHC 28.7 L RDW 13.8 Plt Count 193 MPV 8.7 L Absolute Nucleated RBC 0.000 Nucleated RBC % (auto) 0.0 Sodium 140 Potassium 4.3 Chloride 95 L Carbon Dioxide 42 H* Anion Gap 7 L BUN 26 H Creatinine 1.01 Estim Creat Clear Calc 124.5 Estimated GFR > 60 POC Glucose 197 H 188 H Random Glucose 152 H Calcium 8.4 Magnesium 1.9 03/10/24 03/10/24 07:08 10:44 WBC RBC Hgb Hct MCV MCH MCHC RDW Plt Count MPV Absolute Nucleated RBC Nucleated RBC % (auto) Sodium Potassium Chloride Carbon Dioxide Anion Gap BUN Creatinine Estim Creat Clear Calc Estimated GFR POC Glucose 134 H 193 H Random Glucose Calcium Magnesium Progress Note: A&P Assessment and plan (1) Decompensated heart failure: Status: Acute Assessment and Plan: Has been responding to IV diuresis. Continues IV diuresis with Lasix. Add spironolactone to his regimen. Out of bed to chair. Continue oxygen supplementation therapy. BiPAP therapy at nighttime should be pursued. Continue strict intake output chart. Continue monitor renal function as well as BNP. Will follow with you Time Spent With Patient Time: Total time managing care of this patient today ____ minutes. Progress Note: Quality Stroke Does the patient have a stroke diagnosis?: No Procedures Date of Service Date of Service: 03/10/24
[2024-03-10 11:27] VITALS: BP 142/68; PULSE 76; RESP 20; TEMP 37.2; O2SAT 98
[2024-03-10] MEDS: Insulin Lispro 100 UNIT/ML 3 ML VIAL SUBCUT ×3 (11:32→21:26)
[2024-03-10] MEDS: acetaZOLAMIDE sodium 500 MG VIAL IVPUSH ×2 (11:32→21:26)
--- NOTE | 2024-03-10 13:09 | HO.WOUND ---
Wound Consult: Initial 59yr old? male admitted to [facility] on 03/05/24 - See progress notes and H&P for detailed history.? Wound consult placed for Groin, Scrotum and Right 2nd toe. Patient agreeable to assessment and photo documentation.? Although patient is alert and orientated, he does have an odd affect. While discussing his home life he reported he has limited ability to shower - it is unclear why he was not showering when asked he reported it had been over a month and when pressed why he reported he didn't need a shower in that time frame. Of note the patient has a fungal dermatitis with in his skin folds and would benefit from regular showering and washing. He was advised to shower daily. He reported he used his shower to urinate and defecate due to not being able to fit on his toilet for sometime. He was pressed for details and he was able to provide them but there is odd affect to his demeanor and unclear if he is truly able to care for himself as evidence by his lack of self care. TT to provider and case mgt with concerns for self care at home. Abdominal skin fold Scrotum The skin folds and scrotum and bilateral groin were all noted for MASD (Moisture Associated Skin Damage) and Fungal Dermatitis. Etiology: ??MASD and Fungal Dermatitis Present on Admission Wound Bed: red pink tissue with scattered areas of partial thickness tissue loss, advancing boarders and dry desquamation appears improved from initial photo in chart review Drainage / Odor: yeast odor noted Edges: ? mirrored Jaquelin wound: ? No Induration, Fluctuance or Warmth noted Pain: denies Goals of Treatment: ? Continue with nystatin powder and Interdry use. Barrier cream to scrotum Right leg and 2nd toe Left Leg Left Great toe - Callus Bilateral Heels assessed intact no Pressure injury noted - elevate heels off of surface of bed with pillows. Lower legs noted for suspect venous dermatitis - dry thickened scaling tissue remain intact evidence of old injury noted - no open wounds noted at this time. The right 2nd toe is noted for a dry stable scab - no drainage no fluctuance no topical intervention are needed at this time as scab is stable. 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 It is unlikely the patient is able to reach his foot given the size of his abdominal girth would recommend outpt podiatry follow up. Recommendations: 1. Turn and Reposition every 2 hours and as needed for patient comfort.? Use pillows or wedges to support off loading positions. 2. Off Load all bony prominences with use of pillows and heel boots if needed.? Apply Preventative foams where needed. ? 3. Monitor for incontinence and moisture control, use barrier creams when needed for prevention and treatment. 4. Provide adequate and supplemental nutrition.? 5. Order low air loss mattress. 6. When applicable maintain blood glucose levels per Providers order. 7. Abdominal Skin folds and bilateral groin - Cleanse with PH balance wipes, pat dry with soft cloth.? Apply antifungal power to assist with moisture management.? Be sure to dust of excess powder to prevent caking on skin and in folds. Apply per provider orders. Tuck Interdry AG Sheet into skin fold to wick and translocate moisture away from skin fold.? Be sure to leave at least 2 inch of fabric exposed outside of skin fold.? Change after 5 days or when soiled. 8. Scrotum - Routine cleansing - apply barrier cream to protect from moisture and friction. Ensure proper cath secure location - if remain difficult to use may secure to leg with tape. 9. Right Toe - Stable cab no topical intervention needed at this time. 10. Left Great toe - Stable callus follow up podiatry outpt at time of d/c. Re-consult wound care Nurse for wound deterioration or wound changes.
--- NOTE | 2024-03-10 14:16 | MHC.CM.PN ---
CM met with pt and his mother at their request. His mother asked what happens when pt. is DC'd from hospital, he lives alone, has no services, and his mother said she can't help with hands on care. Pt does have [employer], YRIS gave # to pt and mother, she is going to call her MD to get him signed up with new PCP. Pt will have PT eval to help determine disposition at DC.
[2024-03-10] MEDS: Furosemide 200 MG in 0.9 % Sodium Chloride 80 ML IVCONT (15:26)
[2024-03-10 15:28] VITALS: BP 134/64; PULSE 81; RESP 20; TEMP 36.9; O2SAT 98
[2024-03-10 16:50] LABS: Glucose, Whole Blood 181 mg/dL (60-115)
[2024-03-10 19:53] VITALS: BP 151/79; PULSE 81; RESP 19; TEMP 36.4; O2SAT 93
[2024-03-10 20:58] LABS: Glucose, Whole Blood 196 mg/dL (60-115)
[2024-03-10] MEDS: Insulin Glargine,Hum.rec.anlog 100 UNIT/ML 10 ML VIAL 15 UNIT SUBCUT (21:26)
[2024-03-10 23:40] VITALS: BP 148/69; PULSE 76; RESP 20; TEMP 36.3; O2SAT 92
[2024-03-11] VITALS (7 sets, daily range): BP systolic 127–140; BP diastolic 66–73; PULSE 59–82; RESP 17–20; TEMP 36.3–37.6; O2SAT 95–99
[2024-03-11] MEDS: Melatonin 3 MG TABLET 6 MG PO (00:44)
[2024-03-11] MEDS: Acetaminophen 325 MG TABLET 650 MG PO (00:44)
[2024-03-11 07:09] LABS: Hematocrit 36.6 % (42.0-52.0); Hemoglobin 10.8 g/dl (14.0-18.0); Mean Corpuscular HGB Conc 29.5 g/dl (31.0-36.0); Mean Corpuscular Hemoglobin 26.3 pg (27.0-33.0); Mean Corpuscular Volume 89.3 fL (80.0-98.0); Mean Platelet Volume 8.6 fL (9.4-12.4); Platelet Count 169 X10*3/uL (160-400); Red Cell Distribution Width 13.9 % (11.0-16.0); White Blood Count 3.5 X10*3/uL (4.8-10.8)
[2024-03-11 07:31] LABS: Blood Urea Nitrogen 25 mg/dL (9-16); Calcium 8.8 mg/dL (8.4-10.2); Creatinine Clr Calc Pharmacy 124.5; Estimated Glomerular Filt Rate > 60; Glucose Random 101 mg/dL (60-115); Magnesium 1.9 mg/dL (1.6-2.6)
[2024-03-11 07:31] LABS: Glucose, Whole Blood 97 mg/dL (60-115)
[2024-03-11 07:43] LABS: Anion Gap 10 (12-20); Carbon Dioxide 42 mmol/L (22-29); Chloride 92 mmol/L (96-108); Potassium 4.1 mmol/L (3.3-5.1); Sodium 140 mmol/L (135-145)
[2024-03-11] MEDS: 0.9 % Sodium Chloride Flush 3 ML SYRINGE IVFLUSH ×3 (09:13→21:30)
[2024-03-11 09:44] LABS: ABG Base Excess 25.7 mmol/L; ABG HCO3 53 mmol/L (22-26); ABG pCO2 69 mmHg (32-45); ABG pH 7.49 (7.35-7.45); ABG pO2 76 mmHg (83-108)
[2024-03-11 10:26] LABS: ABG Refer to POC result
--- NOTE | 2024-03-11 10:29 | PM.PNCARD ---
Subjective Subjective Date of Service: 03/11/24 Principal diagnosis: Right-sided heart failure Interval history: Patient was diuresed over 5 L overnight. Seems a little more confused this morning to place. Remains noncommittal with his oz. Does not present any improvement or lack there of. Overnight noted to be hypoxemic. Sleep study results are pending. Blood gas this morning shows alkalosis with significantly elevated CO2 suggestive of both metabolic alkalosis and respiratory acidosis. Review of Systems Review of Systems Yes Unobtainable due to mental status Physical Exam Vital Signs: Last Vital Signs Temp 97.6 F 03/11/24 07:19 Pulse 59 03/11/24 07:19 Resp 18 03/11/24 07:19 BP 127/68 03/11/24 07:19 Pulse Ox 99 03/11/24 07:19 O2 Del Method Nasal Cannula 03/11/24 07:19 O2 Flow Rate 2 03/11/24 07:19 BMI result Body Mass Index 51.6 GENERAL APPEARANCE: No acute distress. NECK: no carotid bruit, + jugular venous distention. SKIN: no suspicious lesions, warm and dry. HEART: no murmurs, regular rate and rhythm. LUNGS: clear to auscultation anteriorly. ABDOMEN: soft, nontender. EXTREMITIES: 2+ edema bilaterally. PERIPHERAL PULSES: equal. NEUROLOGIC: Sleepy but arousable. Objective Labs and Meds 03/11/24 06:47 03/11/24 06:47 Lab results: Laboratory Results - last 24 hr 03/10/24 03/10/24 03/10/24 10:44 16:18 20:55 WBC RBC Hgb Hct MCV MCH MCHC RDW Plt Count MPV Absolute Nucleated RBC Nucleated RBC % (auto) O2 Saturation ABG pH at Pt Temp ABG pCO2 at Pt Temp ABG pO2 at Pt Temp ABG HCO3 ABG Base Excess (Actual) Sodium Potassium Chloride Carbon Dioxide Anion Gap BUN Creatinine Estim Creat Clear Calc Estimated GFR POC Glucose 193 H 181 H 196 H Random Glucose Calcium Magnesium 03/11/24 03/11/24 03/11/24 06:47 07:21 09:33 WBC 3.5 L RBC 4.10 L Hgb 10.8 L Hct 36.6 L MCV 89.3 MCH 26.3 L MCHC 29.5 L RDW 13.9 Plt Count 169 MPV 8.6 L Absolute Nucleated RBC 0.000 Nucleated RBC % (auto) 0.0 O2 Saturation 96.0 ABG pH at Pt Temp 7.49 H ABG pCO2 at Pt Temp 69 H* ABG pO2 at Pt Temp 76 L ABG HCO3 53 H ABG Base Excess (Actual) 25.7 Sodium 140 Potassium 4.1 Chloride 92 L Carbon Dioxide 42 H* Anion Gap 10 L BUN 25 H Creatinine 1.01 Estim Creat Clear Calc 124.5 Estimated GFR > 60 POC Glucose 97 Random Glucose 101 Calcium 8.8 Magnesium 1.9 Progress Note: A&P Assessment and plan (1) Decompensated heart failure: Status: Acute Assessment and Plan: Decompensated congestive heart failure has diuresed very well with the last 2 days with blood gets suggestive of metabolic alkalosis consistent with contraction alkalosis on top of as compensatory mechanism. Would reduce his IV diuresis and add acetazolamide to his regimen. Continue to treat his underlying respiratory acidosis with obesity hypoventilation syndrome. Patient appears to be very minimally participatory in his overall health and does not want to get out of bed. Discussed with him the importance of this. Continue strict intake and output chart. Continue monitor renal function as well as BNP tomorrow. Overall prognosis is guarded due to patient's inability or lack of interested in participating in his own care. Consider BiPAP treatment as well as pulmonary consult Time Spent With Patient Time: Total time managing care of this patient today ____ minutes. Progress Note: Quality Stroke Does the patient have a stroke diagnosis?: No Procedures Date of Service Date of Service: 03/11/24
[2024-03-11 11:20] LABS: Glucose, Whole Blood 143 mg/dL (60-115)
[2024-03-11] MEDS: acetaZOLAMIDE sodium 500 MG VIAL IVPUSH ×2 (11:50→21:30)
[2024-03-11 12:23] LABS: PES - Abn Protein Band 1 0.4 g/dL (NONE DETECTED); Prot Elec - Albumin 2.4 g/dL (3.8-4.8); Prot Elec - Alpha1 0.4 g/dL (0.2-0.3); Prot Elec - Alpha2 0.9 g/dL (0.5-0.9); Prot Elec - Beta 1 0.4 g/dL (0.4-0.6); Prot Elec - Beta 2 0.5 g/dL (0.2-0.5); Prot Elec - Gamma 2.1 g/dL (0.8-1.7); Prot Elec - Total Protein 6.7 g/dL (6.1-8.1)
--- NOTE | 2024-03-11 12:42 | MHC.CM.PN ---
Per rounds, pt is still acute, had sleep study, awaiting PT eval to assist with disposition. CM to follow for DC needs.
--- NOTE | 2024-03-11 12:50 | HO.PM.IMPN ---
Subjective Subjective Date of Service: 03/11/24 Interval History: improving anasarca Physical Exam Vital Signs: Vital Signs: Last Vital Signs Temp 97.3 F 03/11/24 11:04 Pulse 72 03/11/24 11:04 Resp 18 03/11/24 11:04 BP 133/71 03/11/24 11:04 Pulse Ox 96 03/11/24 11:04 O2 Del Method Nasal Cannula 03/11/24 11:04 O2 Flow Rate 2 03/11/24 11:04 BMI result Body Mass Index 51.6 GENERAL APPEARANCE: No acute distress. NECK: no carotid bruit, + jugular venous distention. SKIN: no suspicious lesions, warm and dry. HEART: no murmurs, regular rate and rhythm. LUNGS: clear to auscultation anteriorly. ABDOMEN: soft, nontender. EXTREMITIES: 2+ edema bilaterally. PERIPHERAL PULSES: equal. NEUROLOGIC: Sleepy but arousable. Objective Data Active Medications Acetaminophen (Acetaminophen 325 Mg Tablet) 650 mg PO Q6H PRN PRN Reason: Pain, Mild 1-3,fever,headache Last Admin: 03/11/24 00:44 Dose: 650 mg Documented By: KRUNAL Acetazolamide (Acetazolamide Sodium 500 Mg Vial) 500 mg IVPUSH BID [facility] Stop: 03/12/24 09:01 Last Admin: 03/11/24 11:50 Dose: 500 mg Documented By: ROBERTO Calcium Carbonate (Calcium Carbonate 750 Mg Tab.Chew) 750 mg PO Q4H PRN PRN Reason: Heartburn Glucose (Glucose Gel 15 Gm Gel..Gram.) 15 gm PO Q15M PRN; Protocol PRN Reason: per Hypoglycemia Standing Ord. Dextrose (D10) 250 mls @ 750 mls/hr IV Q15M PRN; Protocol PRN Reason: per Hypoglycemia Standing Ord. Insulin Glargine (Insulin Glargine,Hum.Rec.Anlog 100 Unit/Ml 10 Ml Vial) 15 unit SUBCUT BEDTIME [facility] Last Admin: 03/10/24 21:26 Dose: 15 unit Documented By: KRUNAL Insulin Human Lispro (Insulin Lispro 100 Unit/Ml 3 Ml Vial) 0 unit SUBCUT QIDACHS [facility]; Protocol Last Admin: 03/11/24 11:35 Dose: Not Given Documented By: ROBERTO Non-Admin Reason: No Insulin Coverage Magnesium Hydroxide (Milk Of Magnesia 30 Ml Oral.Susp) 30 ml PO DAILY PRN PRN Reason: Constipation Melatonin (Melatonin 3 Mg Tablet) 6 mg PO BEDTIME PRN PRN Reason: Insomnia Last Admin: 03/11/24 00:44 Dose: 6 mg Documented By: KRUNAL Sodium Chloride (0.9 % Sodium Chloride Flush 3 Ml Syringe) 3 ml IVFLUSH QSHIFT [facility] Last Admin: 03/11/24 09:13 Dose: 3 ml Documented By: ROBERTO Labs 03/11/24 06:47 03/11/24 06:47 Labs: Laboratory Results - last 24 hr 03/06/24 03/10/24 03/10/24 05:42 16:18 20:55 MCV MCH MCHC RDW Plt Count MPV Absolute Nucleated RBC Nucleated RBC % (auto) O2 Saturation ABG pH at Pt Temp ABG pCO2 at Pt Temp ABG pO2 at Pt Temp ABG HCO3 ABG Base Excess (Actual) Anion Gap Estim Creat Clear Calc Estimated GFR POC Glucose 181 H 196 H Random Glucose Calcium Magnesium Total Protein (PEP) 6.7 Albumin (PEP) 2.4 L Twfgw-3-Ukarppchz 0.4 H Anqww-8-Elkawqllx 0.9 Rree-0-Jsarvtgl 0.4 Rgfa-5-Wwbvpaoe 0.5 Gamma Globulins 2.1 H Abnorm Protein Band 1 0.4 H PEP Interpretation SEE NOTE 03/11/24 03/11/24 03/11/24 06:47 07:21 09:33 MCV 89.3 MCH 26.3 L MCHC 29.5 L RDW 13.9 Plt Count 169 MPV 8.6 L Absolute Nucleated RBC 0.000 Nucleated RBC % (auto) 0.0 O2 Saturation 96.0 ABG pH at Pt Temp 7.49 H ABG pCO2 at Pt Temp 69 H* ABG pO2 at Pt Temp 76 L ABG HCO3 53 H ABG Base Excess (Actual) 25.7 Anion Gap 10 L Estim Creat Clear Calc 124.5 Estimated GFR > 60 POC Glucose 97 Random Glucose 101 Calcium 8.8 Magnesium 1.9 Total Protein (PEP) Albumin (PEP) Rqefd-0-Eunrfqlnt Zvpzb-1-Gmqeicnek Rucp-0-Nkmfgxst Jdrb-5-Hespiknz Gamma Globulins Abnorm Protein Band 1 PEP Interpretation 03/11/24 11:07 MCV MCH MCHC RDW Plt Count MPV Absolute Nucleated RBC Nucleated RBC % (auto) O2 Saturation ABG pH at Pt Temp ABG pCO2 at Pt Temp ABG pO2 at Pt Temp ABG HCO3 ABG Base Excess (Actual) Anion Gap Estim Creat Clear Calc Estimated GFR POC Glucose 143 H Random Glucose Calcium Magnesium Total Protein (PEP) Albumin (PEP) Waqwm-3-Vukxjeuhw Lrpyg-3-Mfnjowdxp Quhy-3-Dcawavwn Uipj-2-Czgovrtf Gamma Globulins Abnorm Protein Band 1 PEP Interpretation Microbiology Microbiology Results: Microbiology 03/05/24 13:03 Blood Culture - Final Blood - Venous No growth after 5 days. 03/05/24 13:03 Blood Culture - Final Blood - Venous No growth after 5 days. Assessment and Plan (1) Congestive heart failure: Status: Acute Plan 59M PMH DM, morbid obesity, non compliance, does not take meds or follow with doctors presented with shortness of breath and scrotal swelling Acute hypoxic and hypercapneic respiratory failure secondary to acute diatolic CHF complicated by acute metabolic encephalopathy Now off BiPAP much improved lasix drip now changed to diamox 500mg bid due to metabolic alkalosis, echo - ef 50-55%, indeterminate filling pressures, mild RVH, LVH Cardio following Urinary obstruction due to anasarca/scrotal swelling Urology appreciated, Grace placed, keep in place for 1 month Diabetes with hyperglycemia with proteinuria Basal bolus insulin Morbid obesity and OHS/YULIANA completed sleep study 03/10- moderate sleep apnea starting cpap tonight weight loss recommended Suspected mood/psych disorder without suicidality eventual psychiatric eval weakness PT eval DVT prophylaxis with Lovenox Full Code reason for continued hospitalization: IV diuresis Quality Stroke Does the patient have a stroke diagnosis?: No VTE Prior VTE?: No VTE Risk Level:: Medical - moderate - high VTE Device Contraindication: N/A - Device Ordered VTE Drug Contraindication: Treatment Not Indicated
[2024-03-11 16:10] LABS: Glucose, Whole Blood 276 mg/dL (60-115)
[2024-03-11] MEDS: Insulin Lispro 100 UNIT/ML 3 ML VIAL SUBCUT ×2 (17:46→21:32)
[2024-03-11 20:41] LABS: Glucose, Whole Blood 258 mg/dL (60-115)
[2024-03-11] MEDS: Insulin Glargine,Hum.rec.anlog 100 UNIT/ML 10 ML VIAL 15 UNIT SUBCUT (21:33)
[2024-03-12] VITALS (9 sets, daily range): BP systolic 131–181; BP diastolic 62–92; PULSE 56–86; RESP 16–20; TEMP 35.7–37.3; O2SAT 91–97
[2024-03-12 08:17] LABS: Glucose, Whole Blood 140 mg/dL (60-115)
[2024-03-12 08:42] LABS: Hematocrit 32.3 % (42.0-52.0); Hemoglobin 9.7 g/dl (14.0-18.0); Mean Corpuscular Hemoglobin 26.2 pg (27.0-33.0); Mean Corpuscular Volume 87.3 fL (80.0-98.0); Mean Platelet Volume 9.2 fL (9.4-12.4); Platelet Count 187 X10*3/uL (160-400); Red Cell Distribution Width 13.8 % (11.0-16.0)
[2024-03-12 09:02] LABS: Anion Gap 8 (12-20); B Type Natriuretic Peptide 139 pg/mL (<100); Blood Urea Nitrogen 22 mg/dL (9-16); Carbon Dioxide 39 mmol/L (22-29); Chloride 96 mmol/L (96-108); Creatinine Clr Calc Pharmacy 149.7; Estimated Glomerular Filt Rate > 60; Glucose Random 141 mg/dL (60-115); Magnesium 1.9 mg/dL (1.6-2.6); Sodium 139 mmol/L (135-145)
[2024-03-12] MEDS: Bumetanide 1 MG/4 ML VIAL 2 MG IVPUSH ×2 (10:33→17:51)
[2024-03-12] MEDS: acetaZOLAMIDE sodium 500 MG VIAL IVPUSH (10:34)
[2024-03-12] MEDS: 0.9 % Sodium Chloride Flush 3 ML SYRINGE IVFLUSH ×3 (10:35→21:23)
--- NOTE | 2024-03-12 10:48 | PM.PNCARD ---
Subjective Subjective Date of Service: 03/12/24 Principal diagnosis: Right-sided heart failure Interval history: Patient has diuresed overnight. Currently I do not see any diuretic regimen ordered for him. His creatinine has improved. His chemistry bicarb has improved. He denies any symptoms. He said he said out of bed to chair yesterday for 5-6 hours. Overnight did get BiPAP which she tolerated. Review of Systems Review of Systems Yes Unobtainable due to mental status Physical Exam Vital Signs: Last Vital Signs Temp 97.7 F 03/12/24 07:58 Pulse 86 03/12/24 07:58 Resp 16 03/12/24 07:58 BP 148/92 H 03/12/24 07:58 Pulse Ox 95 03/12/24 07:58 O2 Del Method Nasal Cannula 03/12/24 07:58 O2 Flow Rate 5 03/12/24 07:58 BMI result Body Mass Index 51.6 GENERAL APPEARANCE: No acute distress. NECK: no carotid bruit, + jugular venous distention. SKIN: no suspicious lesions, warm and dry. HEART: no murmurs, regular rate and rhythm. LUNGS: clear to auscultation anteriorly. ABDOMEN: soft, nontender. EXTREMITIES: 2+ edema bilaterally. PERIPHERAL PULSES: equal. NEUROLOGIC: Sleepy but arousable. Objective Labs and Meds 03/12/24 07:21 03/12/24 07:21 Lab results: Laboratory Results - last 24 hr 03/06/24 03/11/24 03/11/24 05:42 11:07 16:04 WBC RBC Hgb Hct MCV MCH MCHC RDW Plt Count MPV Absolute Nucleated RBC Nucleated RBC % (auto) Sodium Potassium Chloride Carbon Dioxide Anion Gap BUN Creatinine Estim Creat Clear Calc Estimated GFR POC Glucose 143 H 276 H Random Glucose Calcium Magnesium B-Natriuretic Peptide Total Protein (PEP) 6.7 Albumin (PEP) 2.4 L Nnkkz-8-Ksofavxqe 0.4 H Mvufd-1-Azycvbvvi 0.9 Lxak-3-Gpigeqtf 0.4 Oqol-8-Zvdmghrx 0.5 Gamma Globulins 2.1 H Abnorm Protein Band 1 0.4 H PEP Interpretation SEE NOTE 03/11/24 03/12/24 03/12/24 19:59 07:21 07:57 WBC 4.0 L RBC 3.70 L Hgb 9.7 L Hct 32.3 L MCV 87.3 MCH 26.2 L MCHC 30.0 L RDW 13.8 Plt Count 187 MPV 9.2 L Absolute Nucleated RBC 0.000 Nucleated RBC % (auto) 0.0 Sodium 139 Potassium 4.0 Chloride 96 Carbon Dioxide 39 H Anion Gap 8 L BUN 22 H Creatinine 0.84 Estim Creat Clear Calc 149.7 Estimated GFR > 60 POC Glucose 258 H 140 H Random Glucose 141 H Calcium 9.0 Magnesium 1.9 B-Natriuretic Peptide 139 H Total Protein (PEP) Albumin (PEP) Obpln-4-Omjyxcyly Zehbh-6-Ipzkdutfq Qpwg-9-Dwhgawwm Bftg-1-Vqskbpyc Gamma Globulins Abnorm Protein Band 1 PEP Interpretation Progress Note: A&P Assessment and plan (1) Decompensated heart failure: Status: Acute Assessment and Plan: Decompensated congestive heart failure in his morbidly obese man with obesity hypoventilation syndrome. Gradually improving. Continue IV Bumex 2 mg b.i.d.. Strict intake and output chart needs to be pursued. Also will continue with acetazolamide 2 overall control his metabolic alkalosis. Continue monitor renal function as well as electrolytes. Replace as needed. Add spironolactone 12.5 mg to his regimen for elevated blood pressure as well as heart failure management. Continue BiPAP therapy. Out of bed to chair. Incentive spirometry. Discussed with patient about participation in his own health care. He said he understands and will do so. Time Spent With Patient Time: Total time managing care of this patient today ____ minutes. Progress Note: Quality Stroke Does the patient have a stroke diagnosis?: No Procedures Date of Service Date of Service: 03/12/24
[2024-03-12 11:53] LABS: Glucose, Whole Blood 198 mg/dL (60-115)
[2024-03-12] MEDS: Insulin Lispro 100 UNIT/ML 3 ML VIAL SUBCUT ×3 (12:33→21:23)
--- NOTE | 2024-03-12 13:57 | P.PNIM_ITS ---
Subjective Subjective Date of Service: 03/12/24 Interval History: feeling better, selpt ok Physical Exam 2 Vital Signs: Vital Signs: Last Vital Signs Temp 98.4 F 03/12/24 11:41 Pulse 83 03/12/24 11:41 Resp 16 03/12/24 11:41 BP 131/64 03/12/24 11:41 Pulse Ox 95 03/12/24 11:41 O2 Del Method Nasal Cannula 03/12/24 11:41 O2 Flow Rate 2 03/12/24 11:41 BMI result Body Mass Index 51.6 GENERAL APPEARANCE: No acute distress. NECK: no carotid bruit, + jugular venous distention. SKIN: no suspicious lesions, warm and dry. HEART: no murmurs, regular rate and rhythm. LUNGS: clear to auscultation anteriorly. ABDOMEN: soft, nontender. EXTREMITIES: 2+ edema bilaterally. PERIPHERAL PULSES: equal. NEUROLOGIC: Sleepy but arousable. Objective Data Active Medications Acetaminophen (Acetaminophen 325 Mg Tablet) 650 mg PO Q6H PRN PRN Reason: Pain, Mild 1-3,fever,headache Last Admin: 03/11/24 00:44 Dose: 650 mg Documented By: KRUNAL Bumetanide (Bumetanide 1 Mg/4 Ml Vial) 2 mg IVPUSH BID@0900,1700 [facility]; Protocol Last Admin: 03/12/24 10:33 Dose: 2 mg Documented By: ROBERTO Calcium Carbonate (Calcium Carbonate 750 Mg Tab.Chew) 750 mg PO Q4H PRN PRN Reason: Heartburn Glucose (Glucose Gel 15 Gm Gel..Gram.) 15 gm PO Q15M PRN; Protocol PRN Reason: per Hypoglycemia Standing Ord. Dextrose (D10) 250 mls @ 750 mls/hr IV Q15M PRN; Protocol PRN Reason: per Hypoglycemia Standing Ord. Insulin Glargine (Insulin Glargine,Hum.Rec.Anlog 100 Unit/Ml 10 Ml Vial) 15 unit SUBCUT BEDTIME [facility] Last Admin: 03/11/24 21:33 Dose: 15 unit Documented By: PEDRO Insulin Human Lispro (Insulin Lispro 100 Unit/Ml 3 Ml Vial) 0 unit SUBCUT QIDACHS [facility]; Protocol Last Admin: 03/12/24 12:33 Dose: 2 unit Documented By: ROBERTO Magnesium Hydroxide (Milk Of Magnesia 30 Ml Oral.Susp) 30 ml PO DAILY PRN PRN Reason: Constipation Melatonin (Melatonin 3 Mg Tablet) 6 mg PO BEDTIME PRN PRN Reason: Insomnia Last Admin: 03/11/24 00:44 Dose: 6 mg Documented By: KRUNAL Sodium Chloride (0.9 % Sodium Chloride Flush 3 Ml Syringe) 3 ml IVFLUSH QSHIFT [facility] Last Admin: 03/12/24 10:35 Dose: 3 ml Documented By: ROBERTO Labs 03/12/24 07:21 03/12/24 07:21 Labs: Laboratory Results - last 24 hr 03/11/24 03/11/24 03/12/24 16:04 19:59 07:21 MCV 87.3 MCH 26.2 L MCHC 30.0 L RDW 13.8 Plt Count 187 MPV 9.2 L Absolute Nucleated RBC 0.000 Nucleated RBC % (auto) 0.0 Anion Gap 8 L Estim Creat Clear Calc 149.7 Estimated GFR > 60 POC Glucose 276 H 258 H Random Glucose 141 H Calcium 9.0 Magnesium 1.9 B-Natriuretic Peptide 139 H 03/12/24 03/12/24 07:57 11:42 MCV MCH MCHC RDW Plt Count MPV Absolute Nucleated RBC Nucleated RBC % (auto) Anion Gap Estim Creat Clear Calc Estimated GFR POC Glucose 140 H 198 H Random Glucose Calcium Magnesium B-Natriuretic Peptide Assessment and Plan (1) Congestive heart failure: Status: Acute Plan 59M PMH DM, morbid obesity, non compliance, does not take meds or follow with doctors presented with shortness of breath and scrotal swelling Acute hypoxic and hypercapneic respiratory failure secondary to acute diatolic CHF complicated by acute metabolic encephalopathy Now off BiPAP much improved lasix drip now changed to Bumex 2 mg iv echo - ef 50-55%, indeterminate filling pressures, mild RVH, LVH Cardio following Urinary obstruction due to anasarca/scrotal swelling Urology appreciated, Grace placed, keep in place for 1 month Diabetes with hyperglycemia with proteinuria Basal bolus insulin Morbid obesity and OHS/YULIANA completed sleep study 03/10- moderate sleep apnea starting cpap tonight weight loss recommended Suspected mood/psych disorder without suicidality eventual psychiatric eval weakness PT eval DVT prophylaxis with Lovenox Full Code reason for continued hospitalization: IV diuresis Quality Stroke Does the patient have a stroke diagnosis?: No VTE Prior VTE?: No VTE Risk Level:: Medical - moderate - high VTE Device Contraindication: N/A - Device Ordered VTE Drug Contraindication: Treatment Not Indicated
[2024-03-12 16:40] LABS: Glucose, Whole Blood 199 mg/dL (60-115)
[2024-03-12 20:33] LABS: Glucose, Whole Blood 230 mg/dL (60-115)
[2024-03-12] MEDS: Insulin Glargine,Hum.rec.anlog 100 UNIT/ML 10 ML VIAL 15 UNIT SUBCUT (21:22)
[2024-03-13] VITALS (14 sets, daily range): BP systolic 135–157; BP diastolic 67–76; PULSE 70–81; RESP 17–20; TEMP 36.2–37; O2SAT 87–98
[2024-03-13 07:33] LABS: Glucose, Whole Blood 134 mg/dL (60-115)
[2024-03-13 07:42] LABS: B Type Natriuretic Peptide 169 pg/mL (<100)
[2024-03-13 07:50] LABS: Anion Gap 9 (12-20); Blood Urea Nitrogen 22 mg/dL (9-16); Calcium 8.9 mg/dL (8.4-10.2); Carbon Dioxide 37 mmol/L (22-29); Chloride 98 mmol/L (96-108); Creatinine Clr Calc Pharmacy 141.3; Estimated Glomerular Filt Rate > 60; Glucose Random 139 mg/dL (60-115); Sodium 140 mmol/L (135-145)
--- NOTE | 2024-03-13 09:10 | HO.PM.IMPN ---
Subjective Subjective Date of Service: 03/13/24 Interval History: no sob, continue diuresse well Physical Exam Vital Signs: Vital Signs: Last Vital Signs Temp 97.1 F 03/13/24 07:14 Pulse 72 03/13/24 07:14 Resp 18 03/13/24 07:14 BP 146/76 H 03/13/24 07:14 Pulse Ox 98 03/13/24 07:14 O2 Del Method BiPAP 03/13/24 07:14 O2 Flow Rate 2 03/12/24 19:41 BMI result Body Mass Index 51.6 Gen: No acute distress. NECK: no carotid bruit, + jugular venous distention. SKIN: no suspicious lesions, warm and dry. HEART: no murmurs, regular rate and rhythm. LUNGS: clear to auscultation anteriorly. ABDOMEN: soft, nontender. EXTREMITIES: 2+ edema bilaterally. PERIPHERAL PULSES: equal. NEUROLOGIC: Alert and oriented x 3, Objective Data Active Medications Acetaminophen (Acetaminophen 325 Mg Tablet) 650 mg PO Q6H PRN PRN Reason: Pain, Mild 1-3,fever,headache Last Admin: 03/11/24 00:44 Dose: 650 mg Documented By: KRUNAL Bumetanide (Bumetanide 1 Mg/4 Ml Vial) 2 mg IVPUSH BID@0900,1700 [facility]; Protocol Last Admin: 03/12/24 17:51 Dose: 2 mg Documented By: ROBERTO Calcium Carbonate (Calcium Carbonate 750 Mg Tab.Chew) 750 mg PO Q4H PRN PRN Reason: Heartburn Glucose (Glucose Gel 15 Gm Gel..Gram.) 15 gm PO Q15M PRN; Protocol PRN Reason: per Hypoglycemia Standing Ord. Dextrose (D10) 250 mls @ 750 mls/hr IV Q15M PRN; Protocol PRN Reason: per Hypoglycemia Standing Ord. Insulin Glargine (Insulin Glargine,Hum.Rec.Anlog 100 Unit/Ml 10 Ml Vial) 15 unit SUBCUT BEDTIME [facility] Last Admin: 03/12/24 21:22 Dose: 15 unit Documented By: TAMELA Insulin Human Lispro (Insulin Lispro 100 Unit/Ml 3 Ml Vial) 0 unit SUBCUT QIDACHS [facility]; Protocol Last Admin: 03/13/24 07:44 Dose: Not Given Documented By: LASHA Non-Admin Reason: No Insulin Coverage Magnesium Hydroxide (Milk Of Magnesia 30 Ml Oral.Susp) 30 ml PO DAILY PRN PRN Reason: Constipation Melatonin (Melatonin 3 Mg Tablet) 6 mg PO BEDTIME PRN PRN Reason: Insomnia Last Admin: 03/11/24 00:44 Dose: 6 mg Documented By: KRUNAL Sodium Chloride (0.9 % Sodium Chloride Flush 3 Ml Syringe) 3 ml IVFLUSH QSHIFT [facility]USAN Last Admin: 03/12/24 21:23 Dose: 3 ml Documented By: TAMELA Labs 03/12/24 07:21 03/13/24 06:29 Labs: Laboratory Results - last 24 hr 03/06/24 03/12/24 03/12/24 05:42 11:42 16:35 Anion Gap Estim Creat Clear Calc Estimated GFR POC Glucose 198 H 199 H Random Glucose Calcium B-Natriuretic Peptide Abnorm Protein Band 2 TNP Abnorm Protein Band 3 TNP 03/12/24 03/13/24 03/13/24 20:28 06:29 07:17 Anion Gap 9 L Estim Creat Clear Calc 141.3 Estimated GFR > 60 POC Glucose 230 H 134 H Random Glucose 139 H Calcium 8.9 B-Natriuretic Peptide 169 H Abnorm Protein Band 2 Abnorm Protein Band 3 Assessment and Plan (1) Congestive heart failure: Status: Acute Plan 59M PMH DM, morbid obesity, non compliance, does not take meds or follow with doctors presented with shortness of breath and scrotal swelling Acute hypoxic and hypercapneic respiratory failure secondary to acute diatolic CHF complicated by acute metabolic encephalopathy metabolic encephalopathy resolved., hypoxia resolved. was on iv lasix drip now on Bumex 2 mg iv bid, and thus far -15.5 L and still has sings of fluid overload continue Bumex at IV 2 mg twice daily, monitor electrolytes and BNP echo - ef 50-55%, indeterminate filling pressures, mild RVH, LVH Cardio following Urinary obstruction due to anasarca/scrotal swelling Urology appreciated, Grace placed, keep in place for 1 month Diabetes with hyperglycemia with proteinuria, hyperglycemia resolved continue lantus and ssi, diabetic diet Morbid obesity and OHS/YULIANA completed sleep study 03/10- moderate sleep apnea cpap at HS weight loss recommended Suspected mood/psych disorder without suicidality eventual psychiatric eval weakness PT eval DVT prophylaxis with Lovenox Full Code reason for continued hospitalization: IV diuresis for acute chf Quality Stroke Does the patient have a stroke diagnosis?: No VTE Prior VTE?: No VTE Risk Level:: Medical - moderate - high VTE Device Contraindication: N/A - Device Ordered VTE Drug Contraindication: Treatment Not Indicated
[2024-03-13] MEDS: Bumetanide 1 MG/4 ML VIAL 2 MG IVPUSH ×2 (09:34→16:13)
[2024-03-13] MEDS: 0.9 % Sodium Chloride Flush 3 ML SYRINGE IVFLUSH ×3 (09:35→20:21)
[2024-03-13] MEDS: Milk of Magnesia 30 ML ORAL.SUSP PO (09:37)
--- NOTE | 2024-03-13 10:04 | PM.PNCARD ---
Subjective Subjective Date of Service: 03/13/24 Principal diagnosis: Right-sided heart failure Interval history: Continues to diurese well. Creatinine is continuing to improve. Spironolactone was not held. Acetazolamide was 1 time dose and has been discontinued. Review of Systems Review of Systems Yes Unobtainable due to mental status Physical Exam Vital Signs: Last Vital Signs Temp 97.1 F 03/13/24 07:14 Pulse 72 03/13/24 07:14 Resp 18 03/13/24 07:14 BP 139/67 03/13/24 09:34 Pulse Ox 98 03/13/24 07:14 O2 Del Method BiPAP 03/13/24 07:14 O2 Flow Rate 2 03/12/24 19:41 BMI result Body Mass Index 51.6 GENERAL APPEARANCE: No acute distress. NECK: no carotid bruit, + jugular venous distention. SKIN: no suspicious lesions, warm and dry. HEART: no murmurs, regular rate and rhythm. LUNGS: clear to auscultation anteriorly. ABDOMEN: soft, nontender. EXTREMITIES: 2+ edema bilaterally. PERIPHERAL PULSES: equal. NEUROLOGIC: Sleepy but arousable. Objective Labs and Meds 03/12/24 07:21 03/13/24 06:29 Lab results: Laboratory Results - last 24 hr 03/06/24 03/12/24 03/12/24 05:42 11:42 16:35 Sodium Potassium Chloride Carbon Dioxide Anion Gap BUN Creatinine Estim Creat Clear Calc Estimated GFR POC Glucose 198 H 199 H Random Glucose Calcium B-Natriuretic Peptide Abnorm Protein Band 2 TNP Abnorm Protein Band 3 TNP 03/12/24 03/13/24 03/13/24 20:28 06:29 07:17 Sodium 140 Potassium 4.0 Chloride 98 Carbon Dioxide 37 H Anion Gap 9 L BUN 22 H Creatinine 0.89 Estim Creat Clear Calc 141.3 Estimated GFR > 60 POC Glucose 230 H 134 H Random Glucose 139 H Calcium 8.9 B-Natriuretic Peptide 169 H Abnorm Protein Band 2 Abnorm Protein Band 3 Progress Note: A&P Assessment and plan (1) Decompensated heart failure: Status: Acute Assessment and Plan: Decompensated congestive heart failure in this middle-aged man related to obesity hypoventilation syndrome and probably untreated hypertension. Continue to diurese. He is improving gradually. Continue monitor renal function electrolytes as well as BNP. I would add acetazolamide 250 mg to his regimen on a daily basis. Also add spironolactone 25 mg to his regimen. Discussed with the patient about management of heart failure in his own involvement in his own care. He said he shows understanding. Continue BiPAP therapy. Out of bed to chair. Incentive spirometry. Consider physical therapy evaluation for balance and placement issues. Most likely might benefit from subacute rehab. Will continue to follow with you Time Spent With Patient Time: Total time managing care of this patient today ____ minutes. Progress Note: Quality Stroke Does the patient have a stroke diagnosis?: No Procedures Date of Service Date of Service: 03/13/24
[2024-03-13 11:17] LABS: Glucose, Whole Blood 181 mg/dL (60-115)
[2024-03-13] MEDS: Insulin Lispro 100 UNIT/ML 3 ML VIAL SUBCUT ×3 (12:05→20:20)
[2024-03-13] MEDS: Spironolactone 25 MG TABLET PO (12:31)
[2024-03-13] MEDS: acetaZOLAMIDE 250 MG TABLET PO (12:31)
--- NOTE | 2024-03-13 14:35 | MHC.CM.PN ---
Per rounds, pt is not medically ready for DC, PT has rec. STR, he was accepted at [facility], and he accepts the bed. HCP was completed today and added to the chart, naming pt's mother, Sara.
[2024-03-13 16:06] LABS: Glucose, Whole Blood 209 mg/dL (60-115)
[2024-03-13] MEDS: polyethylene glycoL 3350 17 GM POWD.PACK PO (17:50)
[2024-03-13] MEDS: Insulin Glargine,Hum.rec.anlog 100 UNIT/ML 10 ML VIAL 15 UNIT SUBCUT (20:21)
[2024-03-13 20:29] LABS: Glucose, Whole Blood 205 mg/dL (60-115)
[2024-03-14] VITALS (7 sets, daily range): BP systolic 141–162; BP diastolic 60–74; PULSE 68–82; RESP 18–22; TEMP 36.3–36.8; O2SAT 93–97
[2024-03-14 07:24] LABS: Glucose, Whole Blood 149 mg/dL (60-115)
[2024-03-14 07:57] LABS: Anion Gap 10 (12-20); Blood Urea Nitrogen 24 mg/dL (9-16); Calcium 8.7 mg/dL (8.4-10.2); Carbon Dioxide 35 mmol/L (22-29); Chloride 97 mmol/L (96-108); Creatinine Clr Calc Pharmacy 123.3; Estimated Glomerular Filt Rate > 60; Glucose Random 152 mg/dL (60-115); Potassium 3.9 mmol/L (3.3-5.1); Sodium 138 mmol/L (135-145)
[2024-03-14] MEDS: Spironolactone 25 MG TABLET PO (09:26)
[2024-03-14] MEDS: Bumetanide 1 MG/4 ML VIAL 2 MG IVPUSH (09:26)
[2024-03-14] MEDS: acetaZOLAMIDE 250 MG TABLET PO (09:26)
[2024-03-14] MEDS: Milk of Magnesia 30 ML ORAL.SUSP PO (09:27)
[2024-03-14] MEDS: 0.9 % Sodium Chloride Flush 3 ML SYRINGE IVFLUSH ×3 (09:27→22:02)
[2024-03-14] MEDS: polyethylene glycoL 3350 17 GM POWD.PACK PO ×2 (09:27→17:49)
[2024-03-14] MEDS: Insulin Lispro 100 UNIT/ML 3 ML VIAL SUBCUT ×3 (11:28→22:01)
[2024-03-14 11:41] LABS: Glucose, Whole Blood 242 mg/dL (60-115)
--- NOTE | 2024-03-14 12:00 | P.PNIM_ITS ---
Subjective Subjective Date of Service: 03/14/24 Interval History: no dyspnea diuresed copiously no chest pain Review of Systems Review of Systems: Yes all other systems are reviewed and are negative Physical Exam 2 Vital Signs: Vital Signs: Last Vital Signs Temp 97.9 F 03/14/24 11:10 Pulse 72 03/14/24 11:10 Resp 18 03/14/24 11:10 BP 150/60 H 03/14/24 11:10 Pulse Ox 93 03/14/24 11:10 O2 Del Method Room Air 03/14/24 11:10 O2 Flow Rate 2 03/14/24 07:19 BMI result Body Mass Index 51.6 Gen: in no acute distress HEENT: sclera anicteric, moist mucus membranes Neck: supple Lungs: clear to auscultation bilaterally Heart: regular rate and rhythm, no murmurs Abd: soft, non-tender, non-distended, obese Ext: 1+ bilateral leg edema Skin: warm/well-perfused Neuro: alert and oriented x3, no focal findings Psych: appropriate affect Objective Data Active Medications Acetaminophen (Acetaminophen 325 Mg Tablet) 650 mg PO Q6H PRN PRN Reason: Pain, Mild 1-3,fever,headache Last Admin: 03/11/24 00:44 Dose: 650 mg Documented By: KRUNAL Acetazolamide (Acetazolamide 250 Mg Tablet) 250 mg PO DAILY [facility] Last Admin: 03/14/24 09:26 Dose: 250 mg Documented By: ADELA Bumetanide (Bumetanide 1 Mg/4 Ml Vial) 2 mg IVPUSH BID@0900,1700 [facility]; Protocol Last Admin: 03/14/24 09:26 Dose: 2 mg Documented By: ADELA Calcium Carbonate (Calcium Carbonate 750 Mg Tab.Chew) 750 mg PO Q4H PRN PRN Reason: Heartburn Glucose (Glucose Gel 15 Gm Gel..Gram.) 15 gm PO Q15M PRN; Protocol PRN Reason: per Hypoglycemia Standing Ord. Dextrose (D10) 250 mls @ 750 mls/hr IV Q15M PRN; Protocol PRN Reason: per Hypoglycemia Standing Ord. Insulin Glargine (Insulin Glargine,Hum.Rec.Anlog 100 Unit/Ml 10 Ml Vial) 15 unit SUBCUT BEDTIME [facility] Last Admin: 03/13/24 20:21 Dose: 15 unit Documented By: BOBBI Insulin Human Lispro (Insulin Lispro 100 Unit/Ml 3 Ml Vial) 0 unit SUBCUT QIDAS [facility]; Protocol Last Admin: 03/14/24 11:28 Dose: 4 unit Documented By: ADELA Magnesium Hydroxide (Milk Of Magnesia 30 Ml Oral.Susp) 30 ml PO DAILY PRN PRN Reason: Constipation Last Admin: 03/14/24 09:27 Dose: 30 ml Documented By: ADELA Melatonin (Melatonin 3 Mg Tablet) 6 mg PO BEDTIME PRN PRN Reason: Insomnia Last Admin: 03/11/24 00:44 Dose: 6 mg Documented By: KRUNAL Polyethylene Glycol (Polyethylene Glycol 3350 17 Gm Powd.Pack) 17 gm PO DAILY PRN PRN Reason: Constipation Last Admin: 03/13/24 17:50 Dose: 17 gm Documented By: LASHA Polyethylene Glycol (Polyethylene Glycol 3350 17 Gm Powd.Pack) 17 gm PO DAILY [facility] Last Admin: 03/14/24 09:27 Dose: 17 gm Documented By: ADELA Sodium Chloride (0.9 % Sodium Chloride Flush 3 Ml Syringe) [facility] Last Admin: 03/14/24 09:27 Dose: 3 ml Documented By: ADELA Spironolactone (Spironolactone 25 Mg Tablet) 25 mg PO DAILY [facility]; Protocol Last Admin: 03/14/24 09:26 Dose: 25 mg Documented By: ADELA Labs 03/12/24 07:21 03/14/24 07:15 Labs: Laboratory Results - last 24 hr 03/13/24 03/13/24 03/14/24 15:58 20:07 07:15 Hold Purple Top SEE NOTE Anion Gap 10 L Estim Creat Clear Calc 123.3 Estimated GFR > 60 POC Glucose 209 H 205 H Random Glucose 152 H Calcium 8.7 03/14/24 03/14/24 07:17 11:25 Hold Purple Top Anion Gap Estim Creat Clear Calc Estimated GFR POC Glucose 149 H 242 H Random Glucose Calcium Assessment and Plan (1) Congestive heart failure: Status: Acute Plan d10 for 59yo M with DM2 + morbid obesity with no primary care since 1999 presenting with dyspnea + scrotal swelling, admitted for respiratory failure to to CHF acute hypoxic/hypercapneic respiratory failure due to acute HFpEF complicated by acute metabolic encephalopathy - diuresed with furosemide IV drip then bumetanide IV pushes; negative 18.7L overall; switch to PO bumetanide today - encephalopathy resolved as hypoxia resolved - TTE 03/06/24: - Normal left ventricular cavity size. There is mildly increased left ventricular wall thickness. The left ventricular systolic function is low normal. The visually estimated ejection fraction is between 50-55%. - E/E prime ratio is between 8 and 15 consistent with indeterminate filling pressures. - Mildly increased right ventricular cavity size. There is low normal right ventricular systolic function. - continue acetazolamide and spironolactone - outpt Cardiology follow-up to include ischemic workup urinary obstruction due to anasarca/scrotal swelling - Urology placed Grace 03/06/24, keep in place 4 wk, follow-up as outpt DM2 with hyperglycemia - basal-bolus insulin YULIANA - completed PSG 03/10-03/11/24, has moderate sleep apnea, on CPAP at bedtime mood disorder - Psychiatry consultation VTE ppx - enoxaparin dispo - per PT, STR In my clinical judgment, the patient requires continued inpatient hospitalization for the following reasons: placement [accepting SNF will not take him on weekend] Total time managing care of this patient today: 45 minutes. Quality Stroke Does the patient have a stroke diagnosis?: No VTE Prior VTE?: No VTE Risk Level:: Medical - moderate - high VTE Device Contraindication: N/A - Device Ordered VTE Drug Contraindication: Treatment Not Indicated
--- NOTE | 2024-03-14 12:18 | PM.PNCARD ---
Subjective Subjective Date of Service: 03/14/24 Principal diagnosis: Right-sided heart failure Interval history: Patient feeling a lot better. Patient was diuresed significantly over the last many days. More alert and awake and participating in his care at this point time. Review of Systems Constitutional: Reports no additional constitutional complaints Cardiovascular: Denies chest pain, Denies rapid heart rate, Reports leg edema, Denies Loss of Consciousness and Reports dyspnea on exertion Respiratory: Reports no additional respiratory complaints and Reports dyspnea on exertion Physical Exam Vital Signs: Last Vital Signs Temp 97.9 F 03/14/24 11:10 Pulse 72 03/14/24 11:10 Resp 18 03/14/24 11:10 BP 150/60 H 03/14/24 11:10 Pulse Ox 93 03/14/24 11:10 O2 Del Method Room Air 03/14/24 11:10 O2 Flow Rate 2 03/14/24 07:19 BMI result Body Mass Index 51.6 GENERAL APPEARANCE: No acute distress. NECK: no carotid bruit, improved jugular venous distention. SKIN: no suspicious lesions, warm and dry. HEART: no murmurs, regular rate and rhythm. LUNGS: clear to auscultation anteriorly. ABDOMEN: soft, nontender. EXTREMITIES: 1+ edema bilaterally. PERIPHERAL PULSES: equal. NEUROLOGIC: Sleepy but arousable. Objective Labs and Meds 03/12/24 07:21 03/14/24 07:15 Lab results: Laboratory Results - last 24 hr 03/13/24 03/13/24 03/14/24 15:58 20:07 07:15 Hold Purple Top SEE NOTE Sodium 138 Potassium 3.9 Chloride 97 Carbon Dioxide 35 H Anion Gap 10 L BUN 24 H Creatinine 1.02 Estim Creat Clear Calc 123.3 Estimated GFR > 60 POC Glucose 209 H 205 H Random Glucose 152 H Calcium 8.7 03/14/24 03/14/24 07:17 11:25 Hold Purple Top Sodium Potassium Chloride Carbon Dioxide Anion Gap BUN Creatinine Estim Creat Clear Calc Estimated GFR POC Glucose 149 H 242 H Random Glucose Calcium Progress Note: A&P Assessment and plan (1) Decompensated heart failure: Status: Acute Assessment and Plan: Decompensated congestive heart failure predominantly right heart failure related to obesity hypoventilation syndrome and probably untreated sleep apnea. Continue BiPAP therapy at nighttime. Continue current diuretic regimen with Bumex 2 mg b.i.d. along with acetazolamide as well as spironolactone. Spironolactone can be increased to 50 mg daily. Plan for discharge tomorrow. Will set up for follow-up as outpatient. Will require outpatient sleep study. Will sign of the case and follow as outpatient. Thank you for allowing me to partake in his care Time Spent With Patient Time: Total time managing care of this patient today ____ minutes. Progress Note: Quality Stroke Does the patient have a stroke diagnosis?: No Procedures Date of Service Date of Service: 03/14/24
[2024-03-14] MEDS: Enoxaparin Sodium 40 MG/0.4 ML SYRINGE SUBCUT (12:26)
--- NOTE | 2024-03-14 14:59 | MHC.CM.PN ---
Per Hospitalist, pt is medically cleared for discharge pending STR placement. STR referral reviewed and only one bed offer form [facility], although they are not able to accept the pt over the weekend and will need MDS/elder care services approval prior to accepting the pt. This CM met with pt and his family present at bedside per their request to review the STR bed options and discuss the discharge plans, pt aware that there is no current closer bed options, and that [facility] remains the only bed offer at this time. Pt and family are requesting to have him stay closer to [place], referral expanded/updated, will await any further bed options and discuss with pt accordingly.
[2024-03-14] MEDS: Bumetanide 1 MG TABLET 2 MG PO (15:58)
[2024-03-14 16:04] LABS: Glucose, Whole Blood 254 mg/dL (60-115)
[2024-03-14 21:07] LABS: Glucose, Whole Blood 268 mg/dL (60-115)
[2024-03-14] MEDS: Insulin Glargine,Hum.rec.anlog 100 UNIT/ML 10 ML VIAL 15 UNIT SUBCUT (22:02)
[2024-03-15] VITALS (7 sets, daily range): BP systolic 130–159; BP diastolic 65–87; PULSE 69–80; RESP 12–19; TEMP 36.3–37.1; O2SAT 93–97
[2024-03-15 07:39] LABS: Glucose, Whole Blood 140 mg/dL (60-115)
[2024-03-15] MEDS: 0.9 % Sodium Chloride Flush 3 ML SYRINGE IVFLUSH ×2 (08:03→16:12)
[2024-03-15] MEDS: Spironolactone 25 MG TABLET PO (08:03)
[2024-03-15] MEDS: acetaZOLAMIDE 250 MG TABLET PO (08:03)
[2024-03-15] MEDS: Bumetanide 1 MG TABLET 2 MG PO ×2 (08:03→16:12)
[2024-03-15] MEDS: polyethylene glycoL 3350 17 GM POWD.PACK PO (08:04)
[2024-03-15 08:22] LABS: Anion Gap 10 (12-20); Blood Urea Nitrogen 23 mg/dL (9-16); Calcium 8.8 mg/dL (8.4-10.2); Carbon Dioxide 34 mmol/L (22-29); Chloride 99 mmol/L (96-108); Estimated Glomerular Filt Rate > 60; Glucose Random 134 mg/dL (60-115); Potassium 3.9 mmol/L (3.3-5.1); Sodium 139 mmol/L (135-145)
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
[2024-03-15 11:07] LABS: Glucose, Whole Blood 202 mg/dL (60-115)
[2024-03-15] MEDS: Enoxaparin Sodium 40 MG/0.4 ML SYRINGE SUBCUT (11:38)
[2024-03-15] MEDS: Insulin Lispro 100 UNIT/ML 3 ML VIAL SUBCUT ×3 (11:39→21:05)
--- NOTE | 2024-03-15 12:50 | HO.PM.IMPN ---
Subjective Subjective Date of Service: 03/15/24 Interval History: feels better, no sob, still diuresing Physical Exam Vital Signs: Vital Signs: Last Vital Signs Temp 98.7 F 03/15/24 11:07 Pulse 73 03/15/24 11:07 Resp 18 03/15/24 11:07 BP 143/74 H 03/15/24 11:07 Pulse Ox 95 03/15/24 11:07 O2 Del Method Room Air 03/15/24 11:07 O2 Flow Rate 2 03/15/24 07:20 BMI result Body Mass Index 51.6 Gen: No acute distress. NECK: no carotid bruit, + jugular venous distention. SKIN: no suspicious lesions, warm and dry. HEART: no murmurs, regular rate and rhythm. LUNGS: clear to auscultation anteriorly. ABDOMEN: soft, nontender. EXTREMITIES: 2+ edema bilaterally. PERIPHERAL PULSES: equal. NEUROLOGIC: Alert and oriented x 3, Objective Data Active Medications Acetaminophen (Acetaminophen 325 Mg Tablet) 650 mg PO Q6H PRN PRN Reason: Pain, Mild 1-3,fever,headache Last Admin: 03/11/24 00:44 Dose: 650 mg Documented By: KRUNAL Acetazolamide (Acetazolamide 250 Mg Tablet) 250 mg PO DAILY [facility] Last Admin: 03/15/24 08:03 Dose: 250 mg Documented By: ADELA Bumetanide (Bumetanide 1 Mg Tablet) 2 mg PO BID@0800,1700 [facility]; Protocol Last Admin: 03/15/24 08:03 Dose: 2 mg Documented By: ADELA Calcium Carbonate (Calcium Carbonate 750 Mg Tab.Chew) 750 mg PO Q4H PRN PRN Reason: Heartburn Enoxaparin Sodium (Enoxaparin Sodium 40 Mg/0.4 Ml Syringe) 40 mg SUBCUT Q24H [facility] Last Admin: 03/15/24 11:38 Dose: 40 mg Documented By: ADELA Glucose (Glucose Gel 15 Gm Gel..Gram.) 15 gm PO Q15M PRN; Protocol PRN Reason: per Hypoglycemia Standing Ord. Dextrose (D10) 250 mls @ 750 mls/hr IV Q15M PRN; Protocol PRN Reason: per Hypoglycemia Standing Ord. Insulin Glargine (Insulin Glargine,Hum.Rec.Anlog 100 Unit/Ml 10 Ml Vial) 15 unit SUBCUT BEDTIME [facility] Last Admin: 03/14/24 22:02 Dose: 15 unit Documented By: BOBBI Insulin Human Lispro (Insulin Lispro 100 Unit/Ml 3 Ml Vial) 0 unit SUBCUT QIDACHS [facility]; Protocol Last Admin: 03/15/24 11:39 Dose: 4 unit Documented By: ADELA Magnesium Hydroxide (Milk Of Magnesia 30 Ml Oral.Susp) 30 ml PO DAILY PRN PRN Reason: Constipation Last Admin: 03/14/24 09:27 Dose: 30 ml Documented By: ADELA Melatonin (Melatonin 3 Mg Tablet) 6 mg PO BEDTIME PRN PRN Reason: Insomnia Last Admin: 03/11/24 00:44 Dose: 6 mg Documented By: KRUNAL Polyethylene Glycol (Polyethylene Glycol 3350 17 Gm Powd.Pack) 17 gm PO DAILY PRN PRN Reason: Constipation Last Admin: 03/14/24 17:49 Dose: 17 gm Documented By: ADELA Polyethylene Glycol (Polyethylene Glycol 3350 17 Gm Powd.Pack) 17 gm PO DAILY [facility] Last Admin: 03/15/24 08:04 Dose: 17 gm Documented By: ADELA Sodium Chloride (0.9 % Sodium Chloride Flush 3 Ml Syringe) 3 ml IVFLUSH QSHIFT [facility] Last Admin: 03/15/24 08:03 Dose: 3 ml Documented By: ADELA Spironolactone (Spironolactone 25 Mg Tablet) 25 mg PO DAILY [facility]; Protocol Last Admin: 03/15/24 08:03 Dose: 25 mg Documented By: ADELA Labs 03/12/24 07:21 03/15/24 07:41 Labs: Laboratory Results - last 24 hr 03/14/24 03/14/24 03/15/24 15:59 20:19 07:22 Hold Purple Top Anion Gap Estim Creat Clear Calc Estimated GFR POC Glucose 254 H 268 H 140 H Random Glucose Calcium 03/15/24 03/15/24 07:41 10:55 Hold Purple Top SEE NOTE Anion Gap 10 L Estim Creat Clear Calc 131.0 Estimated GFR > 60 POC Glucose 202 H Random Glucose 134 H Calcium 8.8 Assessment and Plan (1) Congestive heart failure: Status: Acute Plan 59yo M with DM2 + morbid obesity with no primary care since 1999 presenting with dyspnea + scrotal swelling, admitted for respiratory failure to to CHF acute hypoxic/hypercapneic respiratory failure due to acute HFpEF complicated by acute metabolic encephalopathy - diuresed with furosemide IV drip then bumetanide IV pushes; negative 20.2 L overall; now PO bumetanide today - encephalopathy resolved as hypoxia resolved - TTE 03/06/24: - Normal left ventricular cavity size. There is mildly increased left ventricular wall thickness. The left ventricular systolic function is low normal. The visually estimated ejection fraction is between 50-55%. - E/E prime ratio is between 8 and 15 consistent with indeterminate filling pressures. - Mildly increased right ventricular cavity size. There is low normal right ventricular systolic function. - continue acetazolamide and spironolactone - outpt Cardiology follow-up to include ischemic workup urinary obstruction due to anasarca/scrotal swelling - Urology placed Grace 03/06/24, keep in place 4 wk, follow-up as outpt DM2 with hyperglycemia - basal-bolus insulin YULIANA - completed PSG 03/10-03/11/24, has moderate sleep apnea, on CPAP at bedtime mood disorder - Psychiatry consultation VTE ppx - enoxaparin dispo - per PT, STR In my clinical judgment, the patient requires continued inpatient hospitalization for the following reasons: placement [accepting SNF will not take him on weekend] Total time managing care of this patient today: 45 minutes. Quality Stroke Does the patient have a stroke diagnosis?: No VTE Prior VTE?: No VTE Risk Level:: Medical - moderate - high VTE Device Contraindication: N/A - Device Ordered VTE Drug Contraindication: Treatment Not Indicated
[2024-03-15 15:50] LABS: Glucose, Whole Blood 214 mg/dL (60-115)
[2024-03-15 20:26] LABS: Glucose, Whole Blood 221 mg/dL (60-115)
[2024-03-15] MEDS: Insulin Glargine,Hum.rec.anlog 100 UNIT/ML 10 ML VIAL 15 UNIT SUBCUT (21:05)
[2024-03-16] VITALS: BP 161/61; PULSE 76; RESP 16; TEMP 36.2; O2SAT 95
[2024-03-16] MEDS: 0.9 % Sodium Chloride Flush 3 ML SYRINGE IVFLUSH ×4 (00:05→20:48)
[2024-03-16 04:00] VITALS: BP 155/77; PULSE 71; RESP 16; TEMP 36.6; O2SAT 98
[2024-03-16 06:59] VITALS: BP 143/88; PULSE 76; RESP 17; TEMP 36.1; O2SAT 98
[2024-03-16 07:10] LABS: Glucose, Whole Blood 145 mg/dL (60-115)
[2024-03-16 07:53] LABS: Anion Gap 9 (12-20); Blood Urea Nitrogen 25 mg/dL (9-16); Calcium 8.9 mg/dL (8.4-10.2); Carbon Dioxide 31 mmol/L (22-29); Chloride 101 mmol/L (96-108); Creatinine Clr Calc Pharmacy 124.5; Estimated Glomerular Filt Rate > 60; Glucose Random 135 mg/dL (60-115); Sodium 137 mmol/L (135-145)
[2024-03-16] MEDS: acetaZOLAMIDE 250 MG TABLET PO (07:54)
[2024-03-16] MEDS: Bumetanide 1 MG TABLET 2 MG PO ×2 (07:54→16:36)
[2024-03-16] MEDS: Spironolactone 25 MG TABLET PO (07:54)
[2024-03-16] MEDS: polyethylene glycoL 3350 17 GM POWD.PACK PO (07:55)
[2024-03-16 08:00] LABS: B Type Natriuretic Peptide 98 pg/mL (<100)
[2024-03-16 11:11] LABS: Glucose, Whole Blood 193 mg/dL (60-115)
[2024-03-16 11:12] VITALS: BMI 51.6
--- NOTE | 2024-03-16 11:15 | MHC.CLN ---
PT WITH INCREASED NUTRITION RISK R/T PRESSURE INJURY DIET RX: 1800DM-RECOMMEND 2200DM TO MEET NEEDS R/T WOUNDS DIET WILL STILL PROMOTE SLOW WT LOSS IN MORBID OBESE PT RECOMMEND ADDING ENSURE MAX TO PROMOTE WOUND HEALING SUPP TO PROVIDE 300KCALS, 60G PROTEIN MONITOR PO INTAKE AND ENCOURAGE SUPPLEMENTS SEE ALSO FULL CLINICAL NUTRITION ASSESSMENT
[2024-03-16] MEDS: Insulin Lispro 100 UNIT/ML 3 ML VIAL SUBCUT ×3 (11:18→20:44)
[2024-03-16] MEDS: Enoxaparin Sodium 40 MG/0.4 ML SYRINGE SUBCUT (11:19)
--- NOTE | 2024-03-16 13:01 | P.PNIM_ITS ---
Subjective Subjective Date of Service: 03/16/24 Interval History: feels better, no sob, still diuresing walking in [place] without difficulty Physical Exam 2 Vital Signs: Vital Signs: Last Vital Signs Temp 97 F 03/16/24 06:59 Pulse 76 03/16/24 06:59 Resp 17 03/16/24 06:59 BP 143/88 H 03/16/24 06:59 Pulse Ox 98 03/16/24 06:59 O2 Del Method CPAP 03/16/24 06:59 O2 Flow Rate 2 03/15/24 07:20 BMI result Body Mass Index 51.6 Gen: No acute distress. NECK: no carotid bruit, + jugular venous distention. SKIN: no suspicious lesions, warm and dry. HEART: no murmurs, regular rate and rhythm. LUNGS: clear to auscultation anteriorly. ABDOMEN: soft, nontender. EXTREMITIES: 2+ edema bilaterally. PERIPHERAL PULSES: equal. NEUROLOGIC: Alert and oriented x 3, Objective Data Active Medications Acetaminophen (Acetaminophen 325 Mg Tablet) 650 mg PO Q6H PRN PRN Reason: Pain, Mild 1-3,fever,headache Last Admin: 03/11/24 00:44 Dose: 650 mg Documented By: KRUNAL Acetazolamide (Acetazolamide 250 Mg Tablet) 250 mg PO DAILY [facility] Last Admin: 03/16/24 07:54 Dose: 250 mg Documented By: ADELA Bumetanide (Bumetanide 1 Mg Tablet) 2 mg PO BID@0800,1700 [facility]; Protocol Last Admin: 03/16/24 07:54 Dose: 2 mg Documented By: ADELA Calcium Carbonate (Calcium Carbonate 750 Mg Tab.Chew) 750 mg PO Q4H PRN PRN Reason: Heartburn Enoxaparin Sodium (Enoxaparin Sodium 40 Mg/0.4 Ml Syringe) 40 mg SUBCUT Q24H [facility] Last Admin: 03/16/24 11:19 Dose: 40 mg Documented By: ADELA Glucose (Glucose Gel 15 Gm Gel..Gram.) 15 gm PO Q15M PRN; Protocol PRN Reason: per Hypoglycemia Standing Ord. Dextrose (D10) 250 mls @ 750 mls/hr IV Q15M PRN; Protocol PRN Reason: per Hypoglycemia Standing Ord. Insulin Glargine (Insulin Glargine,Hum.Rec.Anlog 100 Unit/Ml 10 Ml Vial) 15 unit SUBCUT BEDTIME [facility] Last Admin: 03/15/24 21:05 Dose: 15 unit Documented By: JOSE ROBERTO Insulin Human Lispro (Insulin Lispro 100 Unit/Ml 3 Ml Vial) 0 unit SUBCUT QIDACHS [facility]; Protocol Last Admin: 03/16/24 11:18 Dose: 2 unit Documented By: ADELA Magnesium Hydroxide (Milk Of Magnesia 30 Ml Oral.Susp) 30 ml PO DAILY PRN PRN Reason: Constipation Last Admin: 03/14/24 09:27 Dose: 30 ml Documented By: ADELA Melatonin (Melatonin 3 Mg Tablet) 6 mg PO BEDTIME PRN PRN Reason: Insomnia Last Admin: 03/11/24 00:44 Dose: 6 mg Documented By: KRUNAL Polyethylene Glycol (Polyethylene Glycol 3350 17 Gm Powd.Pack) 17 gm PO DAILY PRN PRN Reason: Constipation Last Admin: 03/14/24 17:49 Dose: 17 gm Documented By: ADELA Polyethylene Glycol (Polyethylene Glycol 3350 17 Gm Powd.Pack) 17 gm PO DAILY [facility] Last Admin: 03/16/24 07:55 Dose: 17 gm Documented By: ADELA Sodium Chloride (0.9 % Sodium Chloride Flush 3 Ml Syringe) [facility] Admin: 03/16/24 07:55 Dose: 3 ml Documented By: ADELA Spironolactone (Spironolactone 25 Mg Tablet) 25 mg PO DAILY [facility]; Protocol Last Admin: 03/16/24 07:54 Dose: 25 mg Documented By: ADELA Labs 03/12/24 07:21 03/16/24 07:03 Labs: Laboratory Results - last 24 hr 03/15/24 03/15/24 03/16/24 15:46 20:18 07:01 Anion Gap Estim Creat Clear Calc Estimated GFR POC Glucose 214 H 221 H 145 H Random Glucose Calcium B-Natriuretic Peptide 03/16/24 03/16/24 07:03 11:05 Anion Gap 9 L Estim Creat Clear Calc 124.5 Estimated GFR > 60 POC Glucose 193 H Random Glucose 135 H Calcium 8.9 B-Natriuretic Peptide 98 Assessment and Plan (1) Congestive heart failure: Status: Acute Plan 59yo M with DM2 + morbid obesity with no primary care since 1999 presenting with dyspnea + scrotal swelling, admitted for respiratory failure to to CHF acute hypoxic/hypercapneic respiratory failure due to acute HFpEF complicated by acute metabolic encephalopathy - diuresed with furosemide IV drip then bumetanide IV pushes; negative 21.8 L overall; now PO bumetanide today - encephalopathy resolved as hypoxia resolved - TTE 03/06/24: - Normal left ventricular cavity size. There is mildly increased left ventricular wall thickness. The left ventricular systolic function is low normal. The visually estimated ejection fraction is between 50-55%. - E/E prime ratio is between 8 and 15 consistent with indeterminate filling pressures. - Mildly increased right ventricular cavity size. There is low normal right ventricular systolic function. - continue acetazolamide and spironolactone - outpt Cardiology follow-up to include ischemic workup urinary obstruction due to anasarca/scrotal swelling - Urology placed Grace 03/06/24, keep in place 4 wk, follow-up as outpt DM2 with hyperglycemia - basal-bolus insulin YULIANA - completed PSG 03/10-03/11/24, has moderate sleep apnea, on CPAP at bedtime mood disorder - Psychiatry consultation VTE ppx - enoxaparin dispo - per PT, STR can go today if there is a rehab bed Total time managing care of this patient today: 45 minutes. Quality Stroke Does the patient have a stroke diagnosis?: No VTE Prior VTE?: No VTE Risk Level:: Medical - moderate - high VTE Device Contraindication: N/A - Device Ordered VTE Drug Contraindication: Treatment Not Indicated
[2024-03-16 15:05] VITALS: BP 134/86; PULSE 88; RESP 20; TEMP 36.1; O2SAT 95
--- NOTE | 2024-03-16 15:28 | HO.WOUND ---
Wound Consult: Initial for new wound 59yr old? male admitted to [facility] on 03/05/24 - See progress notes and H&P for detailed history.? Wound consult placed for Intergluteal buttock wound. Patient agreeable to assessment and photo documentation.? Patient was in recliner chair and was able to stand with walker for my assessment. He reports there is mild pain to the left buttock. When assessed the wound falls within the gluteal cleft. He was noted to be incontinent of old pasty stool trapped with in the gluteal cleft as well. When asked if he was aware he had soiled himself he denied knowing. He reports he is not aware when he soils himself. Gluteal Cleft Gluteal Cleft Etiology: ??MASD-IAD (Moisture Associated Skin Damage - Incontinence Associated Dermatitis) Wound Bed: Wounds beds noted with in the gluteal cleft secondary to moisture and friction -incontinence. He is noted to have a firm buttock difficult to spread and was trapping pasty stool. there are three scattered areas of full thickness tissue loss with adherent necrotic tissue noted. Moist desquamation noted. Drainage / Odor: none noted Edges: ? irregular - mirrored erythema Jaquelin wound: ? No Induration, Fluctuance noted Pain: right buttock tenderness noted Goals of Treatment: ? Triad to area to protect and allow for autolytic debridement Recommendations: 1. Turn and Reposition every 2 hours and as needed for patient comfort.? Use pillows or wedges to support off loading positions. 2. Off Load all bony prominences with use of pillows and heel boots if needed.? Apply Preventative foams where needed. ? 3. Monitor for incontinence and moisture control, use barrier creams when needed for prevention and treatment. 4. Provide adequate and supplemental nutrition.? 5. Order low air loss mattress. 6. When applicable maintain blood glucose levels per Providers order. 7. Abdominal Skin folds and bilateral groin - Cleanse with PH balance wipes, pat dry with soft cloth.? Apply antifungal power to assist with moisture management.? Be sure to dust of excess powder to prevent caking on skin and in folds. Apply per provider orders. Tuck Interdry AG Sheet into skin fold to wick and translocate moisture away from skin fold.? Be sure to leave at least 2 inch of fabric exposed outside of skin fold.? Change after 5 days or when soiled. 8. Scrotum - Routine cleansing - apply barrier cream to protect from moisture and friction. Ensure proper cath secure location - if remain difficult to use may secure to leg with tape. 9. Right Toe - Stable cab no topical intervention needed at this time. 10. Left Great toe - Stable callus follow up podiatry outpt at time of d/c. 11. Intergluteal - Cleanse well with PH balance spray or wipes, pat dry daily and after episodes of incontinence. ?Apply thin layer of Triad to wound bed - only pat and dab no scrub and rub when soiling occurs. Reapply thin layer PRN after each episode of incontinence and twice daily. Re-consult wound care Nurse for wound deterioration or wound changes.
[2024-03-16 16:06] VITALS: BP 134/86; PULSE 88; O2SAT 95
[2024-03-16 16:06] LABS: Glucose, Whole Blood 229 mg/dL (60-115)
--- NOTE | 2024-03-16 16:08 | MHC.CM.PN ---
Per rounds, pt is ready to DC, DCP is STR, accepted at [facility], awaiting ins. auth.
[2024-03-16 19:41] VITALS: BP 134/73; PULSE 75; RESP 18; TEMP 36.2; O2SAT 95
[2024-03-16 20:32] LABS: Glucose, Whole Blood 226 mg/dL (60-115)
[2024-03-16] MEDS: Insulin Glargine,Hum.rec.anlog 100 UNIT/ML 10 ML VIAL 15 UNIT SUBCUT (20:44)
[2024-03-17 01:05] VITALS: BP 132/62; PULSE 79; RESP 20; TEMP 36.3; O2SAT 92
[2024-03-17 04:00] VITALS: BP 135/65; PULSE 73; RESP 20; TEMP 36.3; O2SAT 92
--- NOTE | 2024-03-17 07:22 | HO.PM.IMPN ---
Subjective Subjective Date of Service: 03/17/24 Interval History: doing well, no sob vital stable Physical Exam Vital Signs: Vital Signs: Last Vital Signs Temp 97.3 F 03/17/24 04:00 Pulse 73 03/17/24 04:00 Resp 20 03/17/24 04:00 BP 135/65 03/17/24 04:00 Pulse Ox 92 03/17/24 04:00 O2 Del Method Room Air 03/17/24 04:00 O2 Flow Rate 2 03/15/24 07:20 BMI result Body Mass Index 51.6 General: AO X 3, no acute distress Resp: CTA bilateral CVS: S1,S2,RRR, 2+ leg edema, no jvd GI: +BS, NT, no distention Skin: No rash Neuro: motor grossly intact Psych: appropriate affect Objective Data Active Medications Acetaminophen (Acetaminophen 325 Mg Tablet) 650 mg PO Q6H PRN PRN Reason: Pain, Mild 1-3,fever,headache Last Admin: 03/11/24 00:44 Dose: 650 mg Documented By: KRUNAL Acetazolamide (Acetazolamide 250 Mg Tablet) 250 mg PO DAILY [facility] Last Admin: 03/16/24 07:54 Dose: 250 mg Documented By: ADELA Bumetanide (Bumetanide 1 Mg Tablet) 2 mg PO BID@0800,1700 [facility]; Protocol Last Admin: 03/16/24 16:36 Dose: 2 mg Documented By: ADELA Calcium Carbonate (Calcium Carbonate 750 Mg Tab.Chew) 750 mg PO Q4H PRN PRN Reason: Heartburn Enoxaparin Sodium (Enoxaparin Sodium 40 Mg/0.4 Ml Syringe) 40 mg SUBCUT Q24H [facility] Last Admin: 03/16/24 11:19 Dose: 40 mg Documented By: ADELA Glucose (Glucose Gel 15 Gm Gel..Gram.) 15 gm PO Q15M PRN; Protocol PRN Reason: per Hypoglycemia Standing Ord. Dextrose (D10) 250 mls @ 750 mls/hr IV Q15M PRN; Protocol PRN Reason: per Hypoglycemia Standing Ord. Insulin Glargine (Insulin Glargine,Hum.Rec.Anlog 100 Unit/Ml 10 Ml Vial) 15 unit SUBCUT BEDTIME [facility] Last Admin: 03/16/24 20:44 Dose: 15 unit Documented By: HERRERA Insulin Human Lispro (Insulin Lispro 100 Unit/Ml 3 Ml Vial) 0 unit SUBCUT QIDACHS [facility]; Protocol Last Admin: 03/16/24 20:44 Dose: 4 unit Documented By: HERRERA Magnesium Hydroxide (Milk Of Magnesia 30 Ml Oral.Susp) 30 ml PO DAILY PRN PRN Reason: Constipation Last Admin: 03/14/24 09:27 Dose: 30 ml Documented By: ADELA Melatonin (Melatonin 3 Mg Tablet) 6 mg PO BEDTIME PRN PRN Reason: Insomnia Last Admin: 03/11/24 00:44 Dose: 6 mg Documented By: KRUNAL Polyethylene Glycol (Polyethylene Glycol 3350 17 Gm Powd.Pack) 17 gm PO DAILY PRN PRN Reason: Constipation Last Admin: 03/14/24 17:49 Dose: 17 gm Documented By: ADELA Polyethylene Glycol (Polyethylene Glycol 3350 17 Gm Powd.Pack) 17 gm PO DAILY [facility] Last Admin: 03/16/24 07:55 Dose: 17 gm Documented By: ADELA Sodium Chloride (0.9 % Sodium Chloride Flush 3 Ml Syringe) [facility] Last Admin: 03/16/24 20:48 Dose: 3 ml Documented By: HERRERA Spironolactone (Spironolactone 25 Mg Tablet) 25 mg PO DAILY [facility]; Protocol Last Admin: 03/16/24 07:54 Dose: 25 mg Documented By: ADELA Labs 03/12/24 07:21 03/16/24 07:03 Labs: Laboratory Results - last 24 hr 03/16/24 03/16/24 03/16/24 07:03 11:05 15:59 Anion Gap 9 L Estim Creat Clear Calc 124.5 Estimated GFR > 60 POC Glucose 193 H 229 H Random Glucose 135 H Calcium 8.9 B-Natriuretic Peptide 98 03/16/24 20:24 Anion Gap Estim Creat Clear Calc Estimated GFR POC Glucose 226 H Random Glucose Calcium B-Natriuretic Peptide Assessment and Plan (1) Congestive heart failure: Status: Acute Plan 59yo M with DM2 + morbid obesity with no primary care since 1999 presenting with dyspnea + scrotal swelling, admitted for respiratory failure to to CHF acute hypoxic/hypercapneic respiratory failure due to acute HFpEF complicated by acute metabolic encephalopathy -hypoxia and encephalopathy resolved. - diuresed with furosemide IV drip then bumetanide IV pushes; negative 23 L overall; now PO Bumex 2mg bid - TTE 03/06/24: - Normal left ventricular cavity size. There is mildly increased left ventricular wall thickness. The left ventricular systolic function is low normal. The visually estimated ejection fraction is between 50-55%. - E/E prime ratio is between 8 and 15 consistent with indeterminate filling pressures. - Mildly increased right ventricular cavity size. There is low normal right ventricular systolic function. - continue acetazolamide and spironolactone - outpt Cardiology follow-up to include ischemic workup urinary obstruction due to anasarca/scrotal swelling--improved - Urology placed Grace 03/06/24, keep in place 4 wkn (around mid march), follow-up as outpt DM2 with hyperglycemia, new? Hgb A1C = 12 - basal-bolus insulin YULIANA - completed PSG 03/10-03/11/24, has moderate sleep apnea, on CPAP at bedtime mood disorder - Psychiatry consultation VTE ppx - enoxaparin dispo - per PT, STR can go today if there is a rehab bed Total time managing care of this patient today: 45 minutes. Quality Stroke Does the patient have a stroke diagnosis?: No VTE Prior VTE?: No VTE Risk Level:: Medical - moderate - high VTE Device Contraindication: N/A - Device Ordered VTE Drug Contraindication: Treatment Not Indicated
[2024-03-17 07:24] VITALS: BP 130/72; PULSE 76; RESP 18; TEMP 36.2; O2SAT 92
--- NOTE | 2024-03-17 07:27 | PM.DS ---
DS: Providers Provider Date of Service: 03/17/24 Date of admission: 03/05/24 15:27 Date of discharge: 03/17/24 Primary care physician: None Physician Consults: 03/05/24 15:25 Consult to Cardiology Routine Consulting Provider: [facility] Reason for consultation: chf Has provider been notified: Yes 03/06/24 10:26 Consult to Urology Routine Consulting Provider: [facility] Reason for consultation: severe scrotal and penile swelling unable to urinate or place cardenas 03/07/24 03:44 Consult to Wound Care Routine Reason for consultation: Bilateral groin/ scrotum moist red edematous, 2 toe necrotic areas, PI 03/14/24 12:08 Consult to Psychiatry Routine Consulting Provider: [facility] Reason for consultation: mood disorder DS: Diagnosis Discharge Diagnosis (1) Congestive heart failure: Status: Acute DS: Summary Hospital Course Hospital Course: admission hpi Chief Complaint: sob, scrotal swelling 59M PMH DM, morbid obesity, non compliance, does not take meds or follow with doctors, is a poor historian. Reports that he came to the ED and behest of his mother for scrotal swelling and worsening shortness of breath for 2 weeks. Denies chest pain, fever, chills. Denies orthopnea. Is inconsistent when asked about chronicity of his scrotal swelling, at times saying that it has been there for 25 years and at times saying that developed last few weeks. Reports weight gain, denies loss of appetite. In ED CT chest and abdomen consistent with anasarca, elevated BNP, hypoxia hospital course: The patient presented with shortness of breath, hypoxia, encephalopathy, and anasarca, including marked scrotal edema. Further testing, including BNP, CT chest, and X-ray, revealed findings consistent with acute heart failure. Heart failure was initially managed with an IV Lasix drip, which was later transitioned to IV Bumex pushes. The patient is now on oral Bumex 2 mg twice daily. He has diuresed a net negative of 23 liters, and his edema and anasarca have significantly improved. Hypoxia has resolved, and he is breathing comfortably on room air. The metabolic encephalopathy, attributed to hypoxia, has also resolved. An echocardiogram performed on 03/06/24 revealed: - Normal left ventricular cavity size. There is mildly increased left ventricular wall thickness. The left ventricular systolic function is low normal. The visually estimated ejection fraction is between 50-55%. - E/E prime ratio is between 8 and 15 consistent with indeterminate filling pressures. - Mildly increased right ventricular cavity size. There is low normal right ventricular systolic function. He was followed in consultation by cardiology and janeth advises Aldactone 25 and Metalozone 250 daily for component of metabolic alkalosis, he will need outpatient follow up with cardiology for further ischemic work up. urinary obstruction due to anasarca/scrotal swelling - Urology placed Cardenas 03/06/24, keep in place 4 wk (until around mid march) follow-up as outpt DM2--non compliant and was not on med prior to coming in, Hgb A1C is 12. He has been started on Lantus 15 and sliding scale YULIANA - completed polysonogram on 03/10-03/11/24; he has moderate sleep apnea and CPAP is advised at bedtime mood disorder - He had Psychiatry consultation and declined Psychotherapy Final diagnoses: Acute HFpEF Acute hypoxic respiratory failure Metabolic encephalopathy Anasarca Urinary obstruction Diabetes with hyperglycemia YULIANA needing cpapa Mood disorder morbid obesity Time Attestation Discharge Coordination Time (in mins): 45 Quality: Safe Use of Opioids Does Pt have an Active Cancer Diagnosis on the Problem List?: No Quality: Stroke Does the patient have a stroke diagnosis?: No Physical Exam Vital Signs: Vital Signs: Selected Entries 03/17/24 04:00 03/17/24 07:24 Temperature 97.2 F Pulse Rate 76 Respiratory Rate 18 Blood Pressure 135/65 130/72 Pulse Oximetry 92 Oxygen Delivery Me thod Room Air General: AO X 3, no acute distress Resp: CTA bilateral CVS: S1,S2,RRR, 2+ leg edema, no jvd GI: +BS, NT, no distention Skin: No rash Neuro: motor grossly intact Psych: appropriate affect DS: Data Data Completed and Pending Labs on day of discharge: Laboratory Results - last 24 hr 03/15/24 03/16/24 03/16/24 20:18 07:01 07:03 Sodium 137 Potassium 4.0 Chloride 101 Carbon Dioxide 31 H Anion Gap 9 L BUN 25 H Creatinine 1.01 Estim Creat Clear Calc 124.5 Estimated GFR > 60 POC Glucose 221 H 145 H Random Glucose 135 H Calcium 8.9 B-Natriuretic Peptide 98 03/16/24 03/16/24 11:05 15:59 Sodium Potassium Chloride Carbon Dioxide Anion Gap BUN Creatinine Estim Creat Clear Calc Estimated GFR POC Glucose 193 H 229 H Random Glucose Calcium B-Natriuretic Peptide Discharge Plan Discharge Anticipated Discharge Date/Time: 03/16/24 17:30 Patient Disposition: Xfer SNF Discharge Diagnosis: Acute HFpEF, Encephalopathy, Hypoxia, obesity, acute urinary retention Referrals: [facility] [Outside] - 1 Week Physician,None [Primary Care Provider] - 1 Week Discharge Medications: New spironolactone 25 mg Tablet 25 mg PO DAILY Qty: 90 0RF Protocol: Hold for SBP< HOLD for SBP < : 90 magnesium hydroxide [Milk of Magnesia] 400 mg/5 mL Suspension 30 ml PO DAILY PRN (Reason: Constipation) Qty: 3000 0RF bumetanide 1 mg Tablet 2 mg PO BID@0800,1700 Qty: 180 0RF Protocol: Hold for SBP< HOLD for SBP < : 90 insulin glargine [Lantus U-100 Insulin] 100 unit/mL Solution 15 unit subcut BEDTIME Qty: 10 0RF polyethylene glycol 3350 17 gram Powder In Packet 17 g PO DAILY PRN (Reason: Constipation) Qty: 30 0RF insulin lispro [Admelog U-100 Insulin lispro] 100 unit/mL Solution See Protocol subcut QIDACHS Qty: 10 0RF Protocol: Insulin Correction Scale Less than or equal to 110 ---- Give (units): 0 111 to 150 Give (units): 0 151 to 200 Give (units): 2 201 to 250 Give (units): 4 251 to 300 Give (units): 6 301 to 350 Give (units): 8 Greater than 350 Give (units): 10 Call MD if Blood Glucose > : 350 Rx Instructions: BG <111 0 units, 111-150 - 0 units, 151-200 2 units, 201-250 4 units, 251-300 6 units, 301-350 8 units, >350 10 units acetazolamide 250 mg Tablet 250 mg PO DAILY Qty: 30 0RF Discharge Orders: Discharge Order (Routine); Ordered 03/17/24 Ordered By: Jesus Manriquez Diet: Diabetic diet Activity on Discharge: As tolerated Stand Alone Forms: Patient Portal Discharge page Print Language: Chinese Care Plan Goals: recovery from CHF Health Concerns: CHF acute urinary retention diabetes morbid obesity Plan of Treatment: take all your medication as recommended follow up with Dr. Bernabe for more cardiac testing avoid salty food weight your self on regulary basis, daily if not several times a week advised to use cpap at night Assessment: see above
[2024-03-17 07:30] LABS: Glucose, Whole Blood 151 mg/dL (60-115)
[2024-03-17 08:37] LABS: Anion Gap 11 (12-20); Blood Urea Nitrogen 34 mg/dL (9-16); Calcium 8.5 mg/dL (8.4-10.2); Carbon Dioxide 32 mmol/L (22-29); Chloride 98 mmol/L (96-108); Creatinine Clr Calc Pharmacy 109.3; Estimated Glomerular Filt Rate > 60; Glucose Random 162 mg/dL (60-115); Potassium 3.9 mmol/L (3.3-5.1); Sodium 137 mmol/L (135-145)
[2024-03-17] MEDS: Insulin Lispro 100 UNIT/ML 3 ML VIAL SUBCUT ×2 (08:48→11:40)
[2024-03-17] MEDS: acetaZOLAMIDE 250 MG TABLET PO (08:49)
[2024-03-17] MEDS: Spironolactone 25 MG TABLET PO (08:49)
[2024-03-17] MEDS: Bumetanide 1 MG TABLET 2 MG PO (08:49)
[2024-03-17] MEDS: polyethylene glycoL 3350 17 GM POWD.PACK PO (08:50)
[2024-03-17] MEDS: 0.9 % Sodium Chloride Flush 3 ML SYRINGE IVFLUSH (08:56)
[2024-03-17 11:22] LABS: Glucose, Whole Blood 224 mg/dL (60-115)
[2024-03-17] MEDS: Enoxaparin Sodium 40 MG/0.4 ML SYRINGE SUBCUT (11:40)
--- NOTE | 2024-03-17 12:56 | MHC.CM.PN ---
Pt has been medically cleared for DC, he will go to [facility] for [facility] via [facility] this afternoon.
== END 2024-03-17 15:41 | disposition skilled nursing facility (03) | DRG 194 ==
LOC: HO.ED 15:04 → HO.EDOVER 17:04 → HO.S3 03-06 09:12 → HO.EDOVER 03-06 09:23 → HO.IMC 03-06 19:09
PROVIDERS: Family Medicine; Internal Medicine Cardiovascular Disease; Physician Assistant; Physician Assistant Medical; Student in an Organized Health Care Education/Training Program; Admitting Provider Internal Medicine; Emergency Provider Student in an Organized Health Care Education/Training Program; Visit Provider Internal Medicine
DX: I50.31 Acute diastolic (congestive) heart failure (principal); J96.01 Acute respiratory failure with hypoxia; G93.41 Metabolic encephalopathy; J96.02 Acute respiratory failure with hypercapnia; E66.2 Morbid (severe) obesity with alveolar hypoventilation; Z68.43 Body mass index [BMI] 50.0-59.9, adult; E11.65 Type 2 diabetes mellitus with hyperglycemia; R33.9 Retention of urine, unspecified; F33.9 Major depressive disorder, recurrent, unspecified; F43.10 Post-traumatic stress disorder, unspecified; Z71.3 Dietary counseling and surveillance; E87.4 Mixed disorder of acid-base balance; I50.813 Acute on chronic right heart failure; Z20.822 Contact with and (suspected) exposure to COVID-19; Z79.4 Long term (current) use of insulin; Z87.891 Personal history of nicotine dependence; Z79.899 Other long term (current) drug therapy
CPT/HCPCS: 0241U; 36415; 36600; 71045; 71275; 74177; 80048; 80061; 80076; 81001; 82570; 82803; 82947; 83036; 83605; 83735; 83880; 84156; 84165; 84484; 85025; 85027; 87040; 87086; 93005; 93306; 94640; 94660; 97162; 97530; 99285; C1758; J1120; J1650; J1939; J1940; J2060; Q9957; Q9967

== ENCOUNTER → 2024-03-05 11:36 | Outpatient (BNV) | payer SELFPAY | PROVIDERS: Visit Provider Radiology Diagnostic Radiology | DX: R09.02 Hypoxemia (principal); R06.02 Shortness of breath | CPT/HCPCS: 71045; 71275; 74177 ==

== ENCOUNTER → 2024-03-05 12:57 | Outpatient (BNV) | payer MEDICAID, SELFPAY | PROVIDERS: Emergency Provider Student in an Organized Health Care Education/Training Program; Visit Provider Internal Medicine | DX: I50.9 Heart failure, unspecified (principal) | CPT/HCPCS: 99223; 99232; 99233; 99239; 99499 ==

== ENCOUNTER 2024-03-05 15:27 | Outpatient (BNV) | payer SELFPAY | END 2024-03-06 06:00 | PROVIDERS: Admitting Provider Internal Medicine; Emergency Provider Student in an Organized Health Care Education/Training Program; Visit Provider Radiology Diagnostic Radiology | DX: R06.00 Dyspnea, unspecified (principal) | CPT/HCPCS: 71045 ==

== ENCOUNTER 2024-03-05 15:27 | Outpatient (BNV) | payer SELFPAY | END 2024-03-06 07:00 | PROVIDERS: Admitting Provider Internal Medicine; Emergency Provider Student in an Organized Health Care Education/Training Program; Visit Provider Internal Medicine Cardiovascular Disease | DX: I35.8 Other nonrheumatic aortic valve disorders (principal); I27.89 Other specified pulmonary heart diseases; I50.9 Heart failure, unspecified | CPT/HCPCS: 93306 ==

== ENCOUNTER → 2024-03-05 15:27 | Outpatient (BNV) | payer SELFPAY | PROVIDERS: Admitting Provider Internal Medicine; Emergency Provider Student in an Organized Health Care Education/Training Program; Visit Provider Urology | DX: R33.8 Other retention of urine (principal) | CPT/HCPCS: 51703; 99222 ==

== ENCOUNTER → 2024-03-05 15:27 | Outpatient (BNV) | payer MEDICAID, SELFPAY | PROVIDERS: Admitting Provider Internal Medicine; Emergency Provider Student in an Organized Health Care Education/Training Program; Visit Provider Clinical Nurse Specialist Psychiatric/Mental Health, Adult | DX: F43.10 Post-traumatic stress disorder, unspecified (principal); F33.9 Major depressive disorder, recurrent, unspecified | CPT/HCPCS: 99222 ==

== ENCOUNTER → 2024-03-05 15:27 | Outpatient (BNV) | payer SELFPAY | PROVIDERS: Admitting Provider Internal Medicine; Emergency Provider Student in an Organized Health Care Education/Training Program; Visit Provider Internal Medicine Cardiovascular Disease | DX: I50.9 Heart failure, unspecified (principal) | CPT/HCPCS: 93010; 99222; 99232 ==

== ENCOUNTER 2024-04-01 08:36 | Outpatient (AMB) | payer MEDICAID, SELFPAY ==
--- NOTE | 2024-04-01 08:44 | A.OFFVIS_ITS ---
Intake Visit Reasons: [facility] FI-Ogxagblbo-Uwswzhk Trial Intake Note: Pt presents to the office today for an [facility] ER follow up for retention and voiding trial. 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 He is seen for the following urologic conditions. - urinary retention Passed voiding trial Continue 5 mg terazosin Given dietary advice 60-80 g carbs per day Urinary retention Episode in 03/09/2024 Associated with CHF and poorly controlled diabetes Cardenas catheter placed for 1200 cc residual Started on finasteride and terazosin 5 mg PFSH Medical History (Updated 04/01/24 @ 09:14 by Eddi Ha MD) Major depression, recurrent PTSD (post-traumatic stress disorder) Diabetes Social History Household Members: None Housing: House Do you presently have visiting nurse or other home services: No Unable to assess alcohol history related to: Unknown Patient Tobacco Use Status: Former Tobacco user e-Cigarette/Vaping Use: Never Used Second Hand Smoke Exposure: No service: No Review of Systems Const Denies chills and Denies fever(s) Card Reports no additional complaints and Denies syncope Resp Denies cough GI Denies abdominal pain and Denies heartburn Reports as per HPI and Denies change in libido Neuro Denies syncope Psych Denies change in libido Endo Denies change in libido Physical Exam Const General: cooperative, healthy appearing, comfortable and no acute distress Orientation/consciousness: patient oriented x3 HEENT Face and sinus: Yes normal facial exam Mouth: moist mucous membranes Neck Neck: Yes normal visual inspection, Yes full ROM and Yes trachea midline Chest Chest palpation & inspection: normal inspection of the chest Resp Effort & Inspection: normal respiratory effort, able to speak in complete sentences and no respiratory distress GI Inspection: Yes normal to inspection Back/Spine/Pelvis Cervical Spine: normal cervical lordosis Thoracic/Lumbar Spine: thoracic and lumbar spine normal to inspection Skin General skin exam: no rashes or lesions noted Neuro General: patient oriented x3, gait normal, tone normal and moves all extremities Extrem General: Yes normal to inspection and Yes capillary refill normal Office Procedures Bladder/Catheter Procedure Details: Patient presents to office for voiding trial s/p urinary retention episode. 120ml normal saline instilled through catheter, patient tolerated instillation well. Removal 16fr cardenas catheter, patient tolerated removal well. Patient able to void approximately 120mls. Bladder scanned for 0mls. Dr. Ha to room for visit. 24419-Gstbjrpuga of Bladder Procedure code (CPT) selection complete Post Void Residual Post Residual Void Details: bladder scanned for 0mls. Post Void Residual (PVR): 0 54724-Qufw Void Residual by ultrasound Assessment & Plan Assessment & Plan (1) Acute urinary retention: Code(s): R33.8 - Other retention of urine Category: Medical (2) Bladder outlet obstruction: Code(s): N32.0 - Bladder-neck obstruction Category: Medical Plan Three-month follow-up PVR office Orders: Orders AMB Post Void Residual by ultrasound Today R33.8 - Other retention of urine AMB Bladder/Catheter Procedure Today R33.8 - Other retention of urine Medications: New terazosin 5 mg PO BEDTIME 90 days 90 caps 1RF N32.0 - Bladder-neck obstruction, N40.1 - Benign prostatic hyperplasia with lower urinary tract symptoms, R35.0 - Frequency of micturition Patient Instructions: This note is constructed using voice recognition software. While every effort has been made to ensure accuracy stone and concrete washer errors may have been included. Imaging studies, laboratory and physical exam results were discussed and reviewed in detail. No major barriers to patient understanding were identified. An opportunity to ask questions regarding the treatment plan was provided. All questions were answered. The patient expressed understanding and agreement with the above treatment plan. The patient is aware they should contact our office by phone for worsening of their current condition or the appearance of new urologic symptoms. Compliance is encouraged with any medications and followup testing that is ordered. It is a privilege to participate in the urologic care of your patient. If you have any questions or concerns regarding treatment for the above conditions, or other urologic issues, please do not hesitate to contact me. The office telephone contact is [phone]. Sincerely, Dr Eddi Ha MD, [facility] - Urology Compassionate Specialist Care for the Genitourinary System Coding Level of Care Code Est Pt Level 4 (06813) Diagnoses Acute urinary retention R33.8 Bladder outlet obstruction N32.0 CPT Codes Bladder/Catheter Procedure - CPT: 67324-Socjfulhdq of Bladder ([id number]) Post Residual Void - PVR CPT Code: 70901-Hgqj Void Residual by ultrasound ([id number])
== END 2024-04-01 09:20 | disposition home or self-care (01) ==
PROVIDERS: PCP Internal Medicine; Visit Provider Urology
DX: R33.8 Other retention of urine (principal); N32.0 Bladder-neck obstruction
CPT/HCPCS: 51700; 99214

== ENCOUNTER → 2024-04-01 08:36 | Outpatient (BNVA) | payer MEDICAID, SELFPAY | PROVIDERS: PCP Internal Medicine; Visit Provider Urology | DX: R33.8 Other retention of urine (principal); N32.0 Bladder-neck obstruction | CPT/HCPCS: 51700; 51798; 99212 ==

== ENCOUNTER 2024-04-27 15:10 | Outpatient (REF) | payer MEDICAID, SELFPAY ==
[2024-04-27 15:29] LABS: MANUAL DIFF FLAG NO
[2024-04-27 15:55] LABS: Basophils Percent Auto 0.7 % (0-2); Eosinophils Absolute Auto 0.2 X10*3/uL (0.0-0.4); Eosinophils Percent Auto 3.5 % (0-4); Hematocrit 34.1 % (42.0-52.0); Imm Gran Abs Auto 0.03 X10*3/uL (0.00-0.03); Imm Gran Pct Auto 0.5 % (0.0-0.4); Lymphocytes Absolute Auto 0.9 X10*3/uL (1.2-4.9); Lymphocytes Percent Auto 14.6 % (20-40); Mean Corpuscular HGB Conc 32.3 g/dl (31.0-36.0); Mean Corpuscular Hemoglobin 26.4 pg (27.0-33.0); Mean Corpuscular Volume 81.8 fL (80.0-98.0); Mean Platelet Volume 9.5 fL (9.4-12.4); Monocytes Absolute Auto 0.5 X10*3/uL (0.1-1.2); Monocytes Percent Auto 8.4 % (2-11); Neutrophils Absolute Auto 4.4 x10*3/uL (2.0-8.3); Neutrophils Percent Auto 72.3 % (45-73); Platelet Count 217 X10*3/uL (160-400); Red Blood Count 4.17 X10*6/uL (4.60-5.80)
[2024-04-27 16:01] LABS: Estimated Average Glucose 220 mg/dL; Hemoglobin A1c % 9.3 % (<6.0)
[2024-04-27 17:03] LABS: Alanine Aminotransferase 24 U/L (0-40); Albumin Level 3.8 g/dL (3.5-5.0); Alkaline Phosphatase 119 U/L (39-117); Anion Gap 18 (12-20); Aspartate Amino Transferase 25 U/L (5-37); Bilirubin Total 0.3 mg/dL (0.0-1.0); Blood Urea Nitrogen 64 mg/dL (9-16); Calcium 9.6 mg/dL (8.4-10.2); Carbon Dioxide 24 mmol/L (22-29); Chloride 103 mmol/L (96-108); Cholesterol 203 mg/dL (<200); Estimated Glomerular Filt Rate 39; Glucose Random 181 mg/dL (60-115); HDL Cholesterol 45 mg/dL (>40); LDL Cholesterol Calculated 119 mg/dL (<100); Potassium 4.3 mmol/L (3.3-5.1); Sodium 141 mmol/L (135-145); Total Protein 9.1 g/dL (6.5-8.0); Triglycerides 195 mg/dL (<150)
[2024-04-27 17:16] LABS: Creatinine Urine 266.81 mg/dL; Microalbum/Creatinine Ratio Ur 702.7 ug/mg cr (<30)
== END 2024-04-27 15:11 | disposition home or self-care (01) ==
LOC: HO.LAB 15:10
PROVIDERS: PCP Internal Medicine; Visit Provider Internal Medicine
DX: E11.65 Type 2 diabetes mellitus with hyperglycemia (principal); G47.33 Obstructive sleep apnea (adult) (pediatric); I10 Essential (primary) hypertension; I50.43 Acute on chronic combined systolic (congestive) and diastolic (congestive) heart failure
CPT/HCPCS: 36415; 80053; 80061; 82043; 82570; 83036; 84153; 85025

== ENCOUNTER 2024-05-20 11:20 | Outpatient (REF) | payer MEDICAID, SELFPAY ==
[2024-05-20 13:10] LABS: Anion Gap 11 (12-20); Blood Urea Nitrogen 25 mg/dL (9-16); Calcium 9.7 mg/dL (8.4-10.2); Carbon Dioxide 24 mmol/L (22-29); Chloride 111 mmol/L (96-108); Estimated Glomerular Filt Rate > 60; Glucose Random 116 mg/dL (60-115); Potassium 3.9 mmol/L (3.3-5.1); Sodium 142 mmol/L (135-145)
[2024-05-20 13:12] LABS: B Type Natriuretic Peptide 196 pg/mL (<100)
== END 2024-05-20 11:21 | disposition home or self-care (01) ==
LOC: HO.LAB 11:20
PROVIDERS: Internal Medicine Cardiovascular Disease; PCP Internal Medicine; Visit Provider Internal Medicine Cardiovascular Disease
DX: N17.9 Acute kidney failure, unspecified (principal); I50.9 Heart failure, unspecified
CPT/HCPCS: 36415; 80048; 83880; 93005; 99212

== ENCOUNTER 2024-05-20 11:20 | Outpatient (AMB) | payer MEDICAID, SELFPAY ==
--- NOTE | 2024-05-20 11:26 | MHC.OFFVIS ---
Vital Signs 05/20/24 11:29 Height 5 ft 10 in Weight 276 lb 7.355 oz BMI 39.7 BP 160/80 H Blood Pressure Location Lt brachial Position Sitting Pulse 85 Pulse Source Monitor [place] [facility] [place] [place] heart failure/03-06 Intake Note: [facility] [place] [place] Heart Failure/03-06 Home [employer] Service Supervisor Required: No Accompanied by: Self / Same As Patient Allergies No Known Allergies Allergy (Verified 04/01/24 08:44) Medication List - Last Reconciled 05/20/24 by Kirk Evans MD [email or web address] (Jardiance) 25 mg PO DAILY glipizide 2.5 mg PO DAILY losartan 50 mg PO DAILY terazosin 5 mg PO BEDTIME 90 days HPI Comments Details: [age] gentleman who is here for follow-up. He was seen in the hospital in February 2024 when he presented with change in mental status due to hypercapnia congestive heart failure with right more than left-sided heart failure. He was diuresed and was started on Bumex 2 mg twice a day, acetazolamide 25 mg daily and spironolactone 25 mg daily. He was also on losartan 50 mg daily. He said after discharge when he went to get medicines he was not given any diuretics. He was given 3 bottles of glipizide instead and he was taking losartan and Jardiance. He had blood workup in April 2024 which showed acute kidney injury with creatinine of 1.8 and BUN of 60. He was seen by his primary care doctor yesterday and was referred to nephrology. He has been taking losartan throughout. He is saying he has been urinating a lot. He has gained weight and has peripheral edema which has worsened. Denying any chest discomfort. Overall saying that he has been feeling fine. [facility] Medical History (Updated 05/20/24 @ 11:51 by Kirk Evans MD) Major depression, recurrent PTSD (post-traumatic stress disorder) Diabetes Social History Household Members: None Housing: House Do you presently have visiting nurse or other home services: No Unable to assess alcohol history related to: Unknown Patient Tobacco Use Status: Former Tobacco user e-Cigarette/Vaping Use: Never Used Second Hand Smoke Exposure: No service: No Review of Systems Const Denies chills, Denies fatigue, Denies fever(s), Denies frequent falls, Denies weakness, Denies weight gain and Denies weight loss ENT Denies dizziness Card Denies chest pain, Denies leg edema, Denies lightheadedness, Denies palpitations, Denies dyspnea and Denies dyspnea on exertion Resp Denies cough, Denies dyspnea and Denies dyspnea on exertion GI Denies hematochezia Musc Denies abnormal gait, Denies muscle weakness, Denies numbness, Denies radiating pain into limb and Denies tingling Neuro Denies abnormal gait, Denies dizziness, Denies frequent falls, Denies numbness, Denies tingling and Denies weakness Endo Denies fatigue and Denies palpitations Physical Exam Vital Signs: Last Vital Signs Pulse 85 05/20/24 11:29 BP 160/80 H 05/20/24 11:29 BMI result Body Mass Index 39.7 GENERAL APPEARANCE: in no acute distress, morbidly obese. NECK: no carotid bruit, + jugular venous distention. SKIN: no suspicious lesions, warm and dry. HEART: no murmurs, regular rate and rhythm. LUNGS: clear to auscultation bilaterally. ABDOMEN: soft, nontender. EXTREMITIES: Bilateral edema 1 to 2+. Rash on both legs. PERIPHERAL PULSES: equal. NEUROLOGIC: No gross deficits, AAO X 3 Office Procedures EKG Details: Sinus rhythm 85 beats per minute, normal axis, ventricular hypertrophy. QTC 454 milliseconds. QRS 122 milliseconds. [id number]-Axzwuddalscqlsycq, Complete Assessment & Plan Assessment & Plan (1) RUSTY (acute kidney injury): Code(s): N17.9 - Acute kidney failure, unspecified Category: Medical (2) Chronic diastolic heart failure: Code(s): I50.32 - Chronic diastolic (congestive) heart failure Category: Medical Plan Pleasant 59 year gentleman who is here for follow-up. He has background of diastolic heart failure with right more than left-sided failure during recent hospitalization. He appears to be hypervolemic but recent kidney function testing was abnormal while not taking diuretics. I have sent him to repeat blood workup today. If it kidney function has worsened before he needs to be admitted to the hospital for further workup. On the other hand if kidney function has improved then would resume Bumex and spironolactone and repeat blood workup in 10 days. He is due to see Nephrology. Blood pressure is elevated currently. I have advised him to hold losartan till his blood workup comes back. If kidney function is worse as mentioned above he will be admitted to the hospital. Otherwise we will adjust blood pressure medications. Follow-up in the office in few months. Thank you for allowing me to participate in the care of your patient. Please feel free to contact me if you have any questions. Orders: Orders Basic Metabolic Panel Today N17.9 - Acute kidney failure, unspecified Coding Level of Care Code Est Pt Level 4 (13909) Complex EM visit Add On G2211 Diagnoses RUSTY (acute kidney injury) N17.9 Chronic diastolic heart failure I50.32 CPT Codes EKG - CPT: 77801-Iuxbzmcpcppiwkfkx, Complete ([id number])
[2024-05-20 11:29] VITALS: BP 160/80; PULSE 85; BMI 39.7
== END 2024-05-20 12:03 | disposition home or self-care (01) ==
LOC: HO.HCS 11:20
PROVIDERS: PCP Internal Medicine; Visit Provider Internal Medicine Cardiovascular Disease
DX: N17.9 Acute kidney failure, unspecified (principal); I50.32 Chronic diastolic (congestive) heart failure
CPT/HCPCS: 93010; 99214